=== PATIENT | female | born 1950 | race Caucasian/White ===

== ENCOUNTER 2016-04-08 15:31 | Inpatient (IN) | payer OTHER ==
[2016-04-08] MEDS ORDERED: SODIUM CHLORIDE 0.9% 500 ML INFUS.BAG IV ONE (15:57)
--- NOTE | 2016-04-08 16:00 | PDOC ---
History of Present Illness - History of Present Illness Initial Comments: 04/08/16 15:58 65-year-old female assisted patient with a history of Shawanda's disease and dementia, altered mental status, generalized muscle weakness, Parkinson's disease, Cris D, psychosis, who is a resident of [facility] She was sent to the emergency Department with rapid breathing, fever, and reports of foul-smelling urine No history is available from the patient History is obtained from EMS and the assisted transfer sheet There are no old inpatient records for review No further history or review of systems is available at this time <Summer Marino - Last Filed: 04/08/16 17:01> <Christine Gatica - Last Filed: 04/08/16 18:35> - General Chief Complaint: Shortness of Breath Stated Complaint: RESPIRATORY DISTRESS Time Seen by Provider: 04/08/16 15:47 Past History - Past Medical History Dementia: Yes (altered mental status) GI Disorders: Yes (gerd) Psychiatric Problems: Yes (anxiety,major depression, bipolar) Other medical history: huntintons's disease,muscle weakness, parkinsonism, - Psycho/Social/Smoking Cessation Hx Anxiety: No Suicidal Ideation: No Smoking History: Never smoked Have you smoked in the past 12 months: No Information on smoking cessation initiated: No Hx Alcohol Use: No Drug/Substance Use Hx: No Substance Use Type: None <Summer Marino - Last Filed: 04/08/16 17:01> <Christine Gatica - Last Filed: 04/08/16 18:35> - Past Medical History Allergies/Adverse Reactions: Allergies Allergy/AdvReac Type Severity Reaction Status Date / Time No Known Allergies Allergy Verified 04/08/16 15:46 Home Medications: Ambulatory Orders Amantadine HCl [Symmetrel -] 100 mg PO DAILY 04/08/16 Docusate Sodium 300 mg PO HS 04/08/16 Hypromellose 0.5% Opth Soln [Artificial Tears] 1 drop OU DAILY 04/08/16 Mirtazapine 7.5 mg PO HS 04/08/16 Mirtazapine 15 mg PO HS 04/08/16 Sennosides [Senna] 2 tab PO HS 04/08/16 Review of Systems - Review of Systems Able to Perform ROS?: No <Summer Marino - Last Filed: 04/08/16 17:01> *Physical Exam - Vital Signs Last Vital Signs Temp Pulse Resp BP Pulse Ox 101.3 F H 118 H 24 107/75 93 L 04/08/16 15:49 04/08/16 15:38 04/08/16 15:38 04/08/16 15:38 04/08/16 15:38 - Physical Exam Comments: 04/08/16 16:00 Physical exam Last Vital Signs Temp Pulse Resp BP Pulse Ox 101.3 F H 118 H 24 107/75 93 L 04/08/16 15:49 04/08/16 15:38 04/08/16 15:38 04/08/16 15:38 04/08/16 15:38 GENERAL: The patient is diaphoretic and hyperventilating HEAD: Normal with no signs of trauma. EYES: Conjunctiva normal ENT: Mucous membranes dry NECK: Normal range of motion, supple LUNGS: Breath sounds equal, clear to auscultation bilaterally. No wheezes, and no crackles. HEART: Tachycardic Regular rate and rhythm, normal S1 and S2 without murmur, rub or gallop. ABDOMEN: Soft, nontender, normoactive bowel sounds. No guarding, no rebound. No masses appreciated. EXTREMITIES: No edema NEUROLOGICAL: Chronic neurologic deficits as noted SKIN: Warm, Dry, <Summer Marino - Last Filed: 04/08/16 17:01> - Vital Signs Last Vital Signs Temp Pulse Resp BP Pulse Ox 101.3 F H 92 H 24 107/75 97 04/08/16 15:49 04/08/16 16:53 04/08/16 15:38 04/08/16 16:47 04/08/16 16:59 <Christine Gatica - Last Filed: 04/08/16 18:35> ED Treatment Course - LABORATORY CBC & Chemistry Diagram: 04/08/16 16:48 04/08/16 16:48 - RADIOLOGY Radiology Studies Ordered: Category Date Time Status CHEST X-RAY PORTABLE* [RAD] Stat Radiology 04/08/16 15:55 Ordered <Summer Marino - Last Filed: 04/08/16 17:01> - LABORATORY CBC & Chemistry Diagram: 04/08/16 16:48 04/08/16 16:48 - ADDITIONAL ORDERS Additional order review: Laboratory Results 04/08/16 04/08/16 04/08/16 16:48 16:48 16:48 Anticoagulation Therapy Puncture Site ABG pH ABG pCO2 at Pt Temp ABG pO2 at Pt Temp ABG HCO3 ABG O2 Sat (Measured) ABG O2 Content ABG Base Excess Jus Test Carboxyhemoglobin Methemoglobin O2 Delivery Device Oxygen Flow Rate Vent Mode Vent Rate Mechanical Rate PEEP Pressure Support Vent Sodium 181 H* Potassium 3.2 L Chloride 146 H Carbon Dioxide 24 Anion Gap 11 BUN 61 H Creatinine 1.4 H Creat Clearance w eGFR 37.51 Random Glucose 143 H Lactic Acid 3.409 H* Calcium 8.2 L Magnesium 3.7 H Total Bilirubin 0.9 AST 29 ALT 45 Alkaline Phosphatase 92 Creatine Kinase 672 H Troponin I 0.07 H B-Natriuretic Peptide 283.90 H Total Protein 5.7 L Albumin 2.5 L Lipase 162 Urine Color Yellow Urine Appearance Clear Urine pH 5.0 Ur Specific [place] 1.027 Urine Protein 1+ H Urine Glucose (UA) Negative Urine Ketones Trace H Urine Blood 1+ H Urine Nitrite Positive Urine Bilirubin Negative Urine Urobilinogen 2.0 e.u/dl H Ur Leukocyte Esterase Negative Urine RBC 25 Urine WBC 2 Ur Epithelial Cells Rare Urine Bacteria Many Urine Mucus Moderate 04/08/16 16:20 Anticoagulation Therapy Y Puncture Site Right radial ABG pH 7.47 H ABG pCO2 at Pt Temp 27.3 L ABG pO2 at Pt Temp 45.4 L* ABG HCO3 19.8 L ABG O2 Sat (Measured) 81.6 L ABG O2 Content 18.5 ABG Base Excess -1.8 Jus Test Positive Carboxyhemoglobin 1.1 Methemoglobin 1.0 O2 Delivery Device Room air Oxygen Flow Rate 21% Vent Mode Y Vent Rate Y Mechanical Rate Y PEEP 0.0 Pressure Support Vent Y Sodium Potassium Chloride Carbon Dioxide Anion Gap BUN Creatinine Creat Clearance w eGFR Random Glucose Lactic Acid Calcium Magnesium Total Bilirubin AST ALT Alkaline Phosphatase Creatine Kinase Troponin I B-Natriuretic Peptide Total Protein Albumin Lipase Urine Color Urine Appearance Urine pH Ur Specific [place] Urine Protein Urine Glucose (UA) Urine Ketones Urine Blood Urine Nitrite Urine Bilirubin Urine Urobilinogen Ur Leukocyte Esterase Urine RBC Urine WBC Ur Epithelial Cells Urine Bacteria Urine Mucus 04/08/16 16:48 RBC 5.53 H MCV 88.5 MCHC 31.4 L RDW 15.8 H MPV 12.1 H - Medications Given in the ED: ED Medications Discontinued Medications Generic Name Dose Route Start Last Admin Trade Name Negin PRN Reason Stop Dose Admin Acetaminophen 1,000 mg 04/08/16 16:01 04/08/16 16:20 Ofirmev Injection - IVPB 04/08/16 16:02 1,000 mg ONCE ONE Administration Vancomycin HCl 1,000 mg/ 250 mls @ 250 mls/hr 04/08/16 16:27 04/08/16 17:15 Dextrose IVPB 04/08/16 17:26 250 mls/hr ONCE ONE Administration Protocol Piperacillin Sod/Tazobactam 50 mls @ 100 mls/hr 04/08/16 16:28 04/08/16 16:30 Sod 3.375 gm/ Dextrose IVPB 04/08/16 16:57 100 mls/hr ONCE ONE Administration Protocol Levofloxacin 100 mls @ 100 mls/hr 04/08/16 16:28 04/08/16 16:59 Levaquin 500 Mg Premixed Ivpb - IVPB 04/08/16 17:27 100 mls/hr ONCE ONE Administration Sodium Chloride 1,000 ml 04/08/16 15:57 04/08/16 16:47 Normal Saline - IV 04/08/16 15:58 1,000 ml ONCE ONE Administration <Christine Gatica - Last Filed: 04/08/16 18:35> Medical Decision Making - Medical Decision Making 04/08/16 16:02 65-year-old female with most likely sepsis, and secondary hyperventilation for lactic acidosis 04/08/16 16:03 EKG Sinus tachycardia 116, left axis deviation -50 Normal AV and IV conduction time Prolonged QT with a QTC of [address]-T waves Poor baseline 04/08/16 16:29 Stat ABG PH 7.47/pCO2 27/pO2 45/sat 81%/RA pt started on 100% nonrebreather Will start coverage with vancomycin/Levaquin/Zosyn 04/08/16 17:01 SIGN OUT Case discussed in detail with oncoming Emergency Physician including history, physical exam and ancillary studies. Oncoming Emergency Physician has assumed care for the patient and will complete the evaluation and treatment. Transfer of care to Dr. Gatica at 5 PM awaiting all studies <Summer Marino - Last Filed: 04/08/16 17:01> - Critical Care Time Total Critical Care Time (minutes): 60 Critical Care Statement: The care of this patient involved high complexity decision making to prevent further life threatening deterioration of the patient 's condition and/or to evalute & treat vital organ system(s) failure or risk of failure. <Christine Gatica - Last Filed: 04/08/16 18:35> *DC/Admit/Observation/Transfer <Summer Marino - Last Filed: 04/08/16 17:01> - Discharge Dispostion Admit: Yes <Christine Gatica - Last Filed: 04/08/16 18:35> Diagnosis at time of Disposition: [place] disease, Hypernatremia Sepsis Qualifiers: Sepsis type: sepsis due to unspecified organism Qualified Code(s): A41.9 - Sepsis, unspecified organism UTI (urinary tract infection) Qualifiers: Urinary tract infection type: site unspecified Hematuria presence: without hematuria Qualified Code(s): N39.0 - Urinary tract infection, site not specified - Referrals
[2016-04-08] MEDS ORDERED: ACETAMINOPHEN INJECTION 100 ML IVPB ONE (16:01)
[2016-04-08] MEDS ORDERED: ACETAMINOPHEN 1000 MG/100 ML VIAL (NON FORMULARY) IVPB ONE (16:01)
[2016-04-08 16:24] LABS: ARTERIAL BLOOD GAS PO2 45.4 mmHg (80-100); ARTERIAL BLOOD GAS pH 7.47 (7.35-7.45)
[2016-04-08 16:25] LABS: ALLENS TEST POSITIVE; ART PUNCT SITE RIGHT RADIAL; ARTERIAL BLD GAS O2 SATURATION 81.6 % (90-98.9); ARTERIAL BLOOD GAS BASE EXCESS -1.8 meq/l (-2-2); ARTERIAL BLOOD GAS HCO3 19.8 meq/L (22-26); LPM/O2% 21%; PT. ON O2? NO; TYPE OF O2 ROOM AIR
[2016-04-08] MEDS ORDERED: VANCOMYCIN 1,000 MG in DEXTROSE 5%-WATER - 250 ML IVPB ONE (16:27)
[2016-04-08] MEDS ORDERED: PIPERACILLIN/TAZOB 3.375 GM 3.375 GM in DEXTROSE 5%-WATER - 50 ML IVPB ONE (16:28)
[2016-04-08] MEDS ORDERED: LEVOFLOXACIN 500 MG IVPB 100 ML IVPB ONE ×2 (16:28→16:50)
[2016-04-08] MEDS ORDERED: VANCOMYCIN 1 GRAM (PRE-DOCKED) 250 ML IVPB ONE (16:49)
[2016-04-08] MEDS ORDERED: PIPERACILLIN/TAZOB 3.375 GM 50 ML IVPB ONE (16:50)
[2016-04-08 16:57] LABS: MCH 27.8 pg (25.7-33.7); MCHC 31.4 g/dl (32.0-36.0); MEAN CELL VOLUME 88.5 fl (80-96); MEAN PLT VOLUME 12.1 fl (7.5-11.1); PLATELET COUNT 204 K/MM3 (134-434); RDW 15.8 % (11.6-15.6); WHITE BLOOD COUNT 15.5 K/mm3 (4.0-10.0)
[2016-04-08 17:07] LABS: URINE APPEARANCE CLEAR; URINE BILIRUBIN NEGATIVE (NEGATIVE); URINE COLOR YELLOW; URINE GLUCOSE (UA) NEGATIVE (NEGATIVE); URINE KETONE TRACE (NEGATIVE); URINE LEUK ESTERASE NEGATIVE (NEGATIVE); URINE NITRITE POSITIVE (NEGATIVE); URINE UROBILINOGEN 2.0 E.U/dl E.U./dl (0.2-1.0)
[2016-04-08 17:13] LABS: URINE BLOOD 1+ (NEGATIVE); URINE PROTEIN 1+ (NEGATIVE)
[2016-04-08 17:22] LABS: URINE BACTERIA MANY /hpf (NONE SEEN); URINE MUCUS MODERATE; URINE RBC 25 /hpf (0-3); URINE WBC 2 /hpf (3-5)
[2016-04-08 17:29] LABS: ALBUMIN 2.5 g/dl (3.4-5.0); BILIRUBIN,TOTAL 0.9 mg/dL (0.2-1.0); CALCIUM 8.2 mg/dL (8.5-10.1); CREATININE 1.4 mg/dL (0.55-1.02); MAGNESIUM 3.7 mg/dL (1.8-2.4); TOT PROT 5.7 g/dl (6.4-8.2)
[2016-04-08 17:32] LABS: TROPONIN I 0.07 ng/ml (0.00-0.05)
--- NOTE | 2016-04-08 17:48 | PDOC ---
*Physical Exam - Vital Signs Last Vital Signs Temp Pulse Resp BP Pulse Ox 101.3 F H 92 H 24 107/75 97 04/08/16 15:49 04/08/16 16:53 04/08/16 15:38 04/08/16 16:47 04/08/16 16:59 ED Treatment Course - LABORATORY CBC & Chemistry Diagram: 04/08/16 16:48 04/08/16 16:48 - ADDITIONAL ORDERS Additional order review: Laboratory Results 04/08/16 04/08/16 04/08/16 16:48 16:48 16:48 Anticoagulation Therapy Puncture Site ABG pH ABG pCO2 at Pt Temp ABG pO2 at Pt Temp ABG HCO3 ABG O2 Sat (Measured) ABG O2 Content ABG Base Excess Jus Test Carboxyhemoglobin Methemoglobin O2 Delivery Device Oxygen Flow Rate Vent Mode Vent Rate Mechanical Rate PEEP Pressure Support Vent Sodium 181 H* Potassium 3.2 L Chloride 146 H Carbon Dioxide 24 Anion Gap 11 BUN 61 H Creatinine 1.4 H Creat Clearance w eGFR 37.51 Random Glucose 143 H Lactic Acid 3.409 H* Calcium 8.2 L Magnesium 3.7 H Total Bilirubin 0.9 AST 29 ALT 45 Alkaline Phosphatase 92 Creatine Kinase 672 H Troponin I 0.07 H B-Natriuretic Peptide 283.90 H Total Protein 5.7 L Albumin 2.5 L Lipase 162 Urine Color Yellow Urine Appearance Clear Urine pH 5.0 Ur Specific [place] 1.027 Urine Protein 1+ H Urine Glucose (UA) Negative Urine Ketones Trace H Urine Blood 1+ H Urine Nitrite Positive Urine Bilirubin Negative Urine Urobilinogen 2.0 e.u/dl H Ur Leukocyte Esterase Negative Urine RBC 25 Urine WBC 2 Ur Epithelial Cells Rare Urine Bacteria Many Urine Mucus Moderate 04/08/16 16:20 Anticoagulation Therapy Y Puncture Site Right radial ABG pH 7.47 H ABG pCO2 at Pt Temp 27.3 L ABG pO2 at Pt Temp 45.4 L* ABG HCO3 19.8 L ABG O2 Sat (Measured) 81.6 L ABG O2 Content 18.5 ABG Base Excess -1.8 Jus Test Positive Carboxyhemoglobin 1.1 Methemoglobin 1.0 O2 Delivery Device Room air Oxygen Flow Rate 21% Vent Mode Y Vent Rate Y Mechanical Rate Y PEEP 0.0 Pressure Support Vent Y Sodium Potassium Chloride Carbon Dioxide Anion Gap BUN Creatinine Creat Clearance w eGFR Random Glucose Lactic Acid Calcium Magnesium Total Bilirubin AST ALT Alkaline Phosphatase Creatine Kinase Troponin I B-Natriuretic Peptide Total Protein Albumin Lipase Urine Color Urine Appearance Urine pH Ur Specific [place] Urine Protein Urine Glucose (UA) Urine Ketones Urine Blood Urine Nitrite Urine Bilirubin Urine Urobilinogen Ur Leukocyte Esterase Urine RBC Urine WBC Ur Epithelial Cells Urine Bacteria Urine Mucus 04/08/16 16:48 RBC 5.53 H MCV 88.5 MCHC 31.4 L RDW 15.8 H MPV 12.1 H - Medications Given in the ED: ED Medications Discontinued Medications Generic Name Dose Route Start Last Admin Trade Name Freq PRN Reason Stop Dose Admin Acetaminophen 1,000 mg 04/08/16 16:01 04/08/16 16:20 Ofirmev Injection - IVPB 04/08/16 16:02 1,000 mg ONCE ONE Administration Vancomycin HCl 1,000 mg/ 250 mls @ 250 mls/hr 04/08/16 16:27 04/08/16 17:15 Dextrose IVPB 04/08/16 17:26 250 mls/hr ONCE ONE Administration Protocol Piperacillin Sod/Tazobactam 50 mls @ 100 mls/hr 04/08/16 16:28 04/08/16 16:30 Sod 3.375 gm/ Dextrose IVPB 04/08/16 16:57 100 mls/hr ONCE ONE Administration Protocol Levofloxacin 100 mls @ 100 mls/hr 04/08/16 16:28 04/08/16 16:59 Levaquin 500 Mg Premixed Ivpb - IVPB 04/08/16 17:27 100 mls/hr ONCE ONE Administration Sodium Chloride 1,000 ml 04/08/16 15:57 04/08/16 16:47 Normal Saline - IV 04/08/16 15:58 1,000 ml ONCE ONE Administration Medical Decision Making - Critical Care Time Total Critical Care Time (minutes): 60 Critical Care Statement: The care of this patient involved high complexity decision making to prevent further life threatening deterioration of the patient 's condition and/or to evalute & treat vital organ system(s) failure or risk of failure. 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 Dr Coates agreed w ICU admission *DC/Admit/Observation/Transfer Diagnosis at time of Disposition: [place] disease, Hypernatremia, Hyperglycemia, Hypokalemia Sepsis Qualifiers: Sepsis type: sepsis due to unspecified organism Qualified Code(s): A41.9 - Sepsis, unspecified organism UTI (urinary tract infection) Qualifiers: Urinary tract infection type: site unspecified Hematuria presence: without hematuria Qualified Code(s): N39.0 - Urinary tract infection, site not specified - Discharge Dispostion Admit: Yes Decision to Admit order Date/Time: Decision to Admit Order Category Date Time Status Decision to Admit to Hospital Routine Admission 04/08/16 17:45 Active - Referrals - Patient Instructions - Post Discharge Activity
[2016-04-08] MEDS ORDERED: ACETAMINOPHEN 325 MG TABLET (FP) PO PRN (22:42)
[2016-04-08] MEDS ORDERED: SODIUM CHLORIDE 1,000 ML IV STA (22:43)
[2016-04-08] MEDS ORDERED: SODIUM CHLORIDE 1,000 ML IV SCH (22:45)
[2016-04-08 22:59] LABS: TROPONIN I 0.11 ng/ml (0.00-0.05)
[2016-04-08] MEDS ORDERED: D5-1/3NS+20 MEQ KCL - 1,000 ML IV SCH (23:00)
--- NOTE | 2016-04-08 23:32 | CONSULT ---
Consult Consult Specialty:: Pulm/CC - History of Present Illness History of Present Illness: Pt is a 65yr old woman with PMHx of advanced [place]'s and Parkinson's disease (Parkinsonian from [place]'s?). She presents to the ER from [facility] with CC tachypnea, fever and foul smelling urine. In the ER found to have wbc 15.5, hemoconcentrated, BUN/Cr 61/1.4, Sodium 181, Potassium 3.2 and CK 672. Chest xray consistent with left side hcap. Pt admitted to the ICU for further management. Upon assessment pt is awake and alert, minimally responsive to verbal stimuli 111/67, HR 80s sinus on tele, intermittent desaturation resolved with venti mask. - History Source History Provided By: Medical Record Limitations to Obtaining History: Clinical Condition - Alcohol/Substance Use Hx Alcohol Use: No - Smoking History Smoking history: Never smoked Have you smoked in the past 12 months: No Home Medications - Allergies Allergies/Adverse Reactions: Allergies Allergy/AdvReac Type Severity Reaction Status Date / Time No Known Allergies Allergy Verified 04/08/16 15:46 - Home Medications Home Medications: Ambulatory Orders Amantadine HCl [Symmetrel -] 100 mg PO DAILY 04/08/16 Docusate Sodium 300 mg PO HS 04/08/16 Hypromellose 0.5% Opth Soln [Artificial Tears] 1 drop OU DAILY 04/08/16 Mirtazapine 7.5 mg PO HS 04/08/16 Mirtazapine 15 mg PO HS 04/08/16 Sennosides [Senna] 2 tab PO HS 04/08/16 Family Disease History - Family Disease History Family History: Unable to Obtain Review of Systems Unable to obtain ROS, reason: CORBY Physical Exam Vital Signs: Vital Signs Period Temp Pulse Resp BP Sys/Rae Pulse Ox Last 24 Hr 98 F-101.3 F 85-118 18-30 100-127/67-77 93-100 Intake & Output 04/05/16 04/06/16 04/07/16 04/08/16 23:59 23:59 23:59 23:59 Intake Total 1000 Output Total 50 Balance 950 Weight 99 lb Constitutional: Yes: Mild Distress, Poor Hygeine, Thin Eyes: Yes: PERRL HENT: Yes: Thrush, Other (white exudate throughout oral cavity, brown growths) Neck: Yes: WNL Cardiovascular: Yes: S1, S2 Respiratory: Yes: Diminished (pt unable to deep breath upon request), On Venti- Mask, Tachypnea (low to mid 20s). No: Rhonchi, Wheezes Gastrointestinal: Yes: Normal Bowel Sounds ...Rectal Exam: Yes: Deferred Renal/: Yes: Hewitt Present (yellow output) Extremities: Yes: Cool, Other (contraction) Edema: Yes Edema: LLE: Trace, RLE: Trace Peripheral Pulses WNL: Yes (+2 bilateral pedal pulses) Integumentary: Yes: Tenting Psychiatric: Yes: Alert. No: Oriented Labs: Abnormal Lab Results 04/08/16 04/08/16 04/08/16 16:20 16:48 16:48 WBC 15.5 H RBC 5.53 H Hgb 15.4 H Hct 49.0 H MCHC 31.4 L RDW 15.8 H MPV 12.1 H ABG pH 7.47 H ABG pCO2 at Pt Temp 27.3 L ABG pO2 at Pt Temp 45.4 L* ABG HCO3 19.8 L ABG O2 Sat (Measured) 81.6 L Sodium Potassium Chloride BUN Creatinine Random Glucose Lactic Acid Calcium Magnesium Creatine Kinase Troponin I B-Natriuretic Peptide Total Protein Albumin Urine Protein 1+ H Urine Ketones Trace H Urine Blood 1+ H Urine Urobilinogen 2.0 e.u/dl H 04/08/16 04/08/16 04/08/16 16:48 16:48 20:03 WBC RBC Hgb Hct MCHC RDW MPV ABG pH ABG pCO2 at Pt Temp ABG pO2 at Pt Temp ABG HCO3 ABG O2 Sat (Measured) Sodium 181 H* Potassium 3.2 L Chloride 146 H BUN 61 H Creatinine 1.4 H Random Glucose 143 H Lactic Acid 3.409 H* 3.128 H* Calcium 8.2 L Magnesium 3.7 H Creatine Kinase 672 H Troponin I 0.07 H B-Natriuretic Peptide 283.90 H Total Protein 5.7 L Albumin 2.5 L Urine Protein Urine Ketones Urine Blood Urine Urobilinogen 04/08/16 22:20 WBC RBC Hgb Hct MCHC RDW MPV ABG pH ABG pCO2 at Pt Temp ABG pO2 at Pt Temp ABG HCO3 ABG O2 Sat (Measured) Sodium Potassium Chloride BUN Creatinine Random Glucose Lactic Acid Calcium Magnesium Creatine Kinase 991 H D Troponin I 0.11 H B-Natriuretic Peptide Total Protein Albumin Urine Protein Urine Ketones Urine Blood Urine Urobilinogen Assessment/Plan Pt is a 65yr old woman with PMHx of advanced [place]'s and Parkinson's disease (Parkinsonian from [place]'s?). Now in the ICU for sepsis secondary to uti/hcap, severe hypernatremia, rhabdo in setting of hypovolemia. Pulm: -O2 support prn, hypoxic in ER, now sating 100% on venti mask -f/u repeat abg -Chest xray in a.m ID: Sepsis secondary to UTI and HCAP -f/u cultures -Consult -Antibiotics per ID -Trend lactic acid Renal: Severe hypernatremia, likely chronic, rhabdo likely from hypovolemia -Consult -IVF -Goal ~10mEq reduction per 24hrs -I/Os -bmp q3-4 -Replete electrolytes prn Neuro: Advanced [place] and Parkinson's (Parkinsonian symptoms secondary to Shawanda's?) -Consult -Continue home meds -Pain management Cardio -f/u enzymes ENT: pt with growth in bottom of oral cavity and what appears to be significant decay/possible infection. -Consider dental consult Nutrition -NGT -Enteral feeds GOC: -Discussed with pt's brother (ID confirmed) who states he wishes all interventions at this time Prophylactic -PPI -DVT -Aspiration precautions
[2016-04-08 23:42] VITALS: BMI 19.3
[2016-04-08] MEDS: SODIUM CHLORIDE 0.9%/KCL 1,000 ML IV SCH (23:45)
[2016-04-08] MEDS ORDERED: KCL 10 MEQ IVPB 100 ML IVPB SCH (23:45)
[2016-04-09 00:38] LABS: ARTERIAL BLD GAS O2 SATURATION 94.8 % (90-98.9); ARTERIAL BLOOD GAS BASE EXCESS -3.3 meq/l (-2-2); ARTERIAL BLOOD GAS PO2 78.5 mmHg (80-100); ARTERIAL BLOOD GAS pH 7.41 (7.35-7.45)
[2016-04-09 00:39] LABS: ALLENS TEST POSITIVE; ART PUNCT SITE RIGHT RADIAL; LPM/O2% 50%; PT. ON O2? YES; TYPE OF O2 VENTI MASK
[2016-04-09] MEDS ORDERED: SODIUM CHLORIDE 1,000 ML IV STA (01:00)
[2016-04-09] MEDS ORDERED: PIPERACILLIN/TAZOB 3.375 GM 50 ML IVPB ONE (02:00)
[2016-04-09 06:06] LABS: MCH 28.1 pg (25.7-33.7); MEAN CELL VOLUME 87.8 fl (80-96); MEAN PLT VOLUME 11.5 fl (7.5-11.1); PLATELET COUNT 149 K/MM3 (134-434); RDW 15.3 % (11.6-15.6); WHITE BLOOD COUNT 15.4 K/mm3 (4.0-10.0)
[2016-04-09] MEDS: NYSTATIN 500,000 UNITS/5 ML SUSPENSION PO SCH ×3 (06:15→17:27)
[2016-04-09 06:20] LABS: INR 1.88 (0.82-1.09); PROTHROMBIN TIME (PATIENT) 20.9 SEC (9.98-11.88)
[2016-04-09 06:42] LABS: ALBUMIN 2.2 g/dl (3.4-5.0); BILIRUBIN,TOTAL 0.8 mg/dL (0.2-1.0); CALCIUM 7.9 mg/dL (8.5-10.1); MAGNESIUM 3.1 mg/dL (1.8-2.4); PHOSPHOROUS 1.7 mg/dL (2.5-4.9); TROPONIN I 0.09 ng/ml (0.00-0.05)
[2016-04-09] MEDS ORDERED: SODIUM CHLORIDE 500 ML IV STA (06:52)
[2016-04-09] MEDS: KCL 10 MEQ IVPB 100 ML IVPB SCH ×2 (07:17→10:39)
--- NOTE | 2016-04-09 10:01 | PN ---
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
[2016-04-09 10:31] LABS: CALCIUM 7.9 mg/dL (8.5-10.1); CREATININE 0.9 mg/dL (0.55-1.02)
[2016-04-09] MEDS: PIPERACILLIN/TAZOB 3.375 GM 50 ML IVPB SCH ×2 (10:39→18:52)
[2016-04-09] MEDS: AMANTADINE HCL 100 MG TABLET PO SCH (11:11)
[2016-04-09] MEDS: HEPARIN NA (PORCINE) 5,000 UNITS/ML 1ML VIAL SQ SCH ×2 (11:22→23:26)
[2016-04-09] MEDS: D5-1/2NS+40 MEQ KCL - 1,000 ML IV SCH (11:26)
--- NOTE | 2016-04-09 11:53 | EKG ---
Test Reason : Blood Pressure : / mmHG Vent. Rate : 087 BPM Atrial Rate : 087 BPM P-R Int : 112 ms QRS Dur : 096 ms QT Int : 350 ms P-R-T Axes : 055 -36 135 degrees QTc Int : 421 ms NORMAL SINUS RHYTHM LEFT AXIS DEVIATION NONSPECIFIC T WAVE ABNORMALITY ABNORMAL ECG WHEN COMPARED WITH ECG OF 08-APR-2016 15:49, COMPARED TO EKG NO SIGNIFICANT CHANGE IS FOUND Confirmed by SAMANTHA PEÑALOZA, LUIS ([id number]) on 04/09/2016 11:52:53 AM Referred By: VICKI HITCHCOCK Confirmed By:LUIS SINGH MD
--- NOTE | 2016-04-09 12:24 | EKG ---
Test Reason : Blood Pressure : / mmHG Vent. Rate : 116 BPM Atrial Rate : 116 BPM P-R Int : 126 ms QRS Dur : 098 ms QT Int : 366 ms P-R-T Axes : 072 -50 071 degrees QTc Int : 508 ms POOR DATA QUALITY, INTERPRETATION MAY BE ADVERSELY AFFECTED SINUS TACHYCARDIA LEFT AXIS DEVIATION NONSPECIFIC ST AND T WAVE ABNORMALITY ABNORMAL ECG NO PREVIOUS ECGS AVAILABLE Confirmed by LUIS SINGH MD ([id number]) on 04/09/2016 12:24:32 PM Referred By: Confirmed By:LUIS SINGH MD
--- NOTE | 2016-04-09 12:25 | CONS ---
INFECTIOUS DISEASE CONSULTATION DATE OF CONSULTATION: 04/09/2016 REQUESTED BY: Susan Ortega MD HISTORY OF PRESENT ILLNESS: This is a 65-year-old woman with L[place]'s disease who lives at the senior living whose chief complaint on arrival at the emergency room was respiratory distress and shortness of breath. She is unable to give any history. She at the time of transfer had a temperature of 99.1, and an O2 saturation of 87%. She was brought to the emergency room where she was noted to have a tachycardia with a heart rate of 118. She was noted to have an elevated white count of 15,000 with a lactic acid of 3.4 and a sodium of 181. BUN and creatinine were 61 and 1.4. Chest x-ray revealed a left-sided infiltrate and had cultures drawn, was given vancomycin, Levaquin, Zosyn and fluids and admitted to the ICU. I am asked to see her for further recommendations. She is resting comfortably and unable to give any history. PAST MEDICAL HISTORY: Per the senior living records, her past medical history is notable for: 1. [place]'s disease. 2. Dementia. 3. Anxiety disorder. 4. Muscle weakness. 5. Bipolar disorder. 6. GERD without esophagitis. 7. Secondary Parkinson's. 8. Major depression. MEDICATIONS: She has received both her pneumococcal and influenza vaccines. Her medications at the senior living: 1. Mirtazapine. 2. Amantadine. 3. Colace. 4. Ensure Plus. It appears she was recently on IV fluids for dehydration at the senior living. PAST MEDICAL HISTORY: Her past medical history is as stated. She is nonverbal, and it is unclear whether this is her baseline. ALLERGIES: She has no known drug allergies. FAMILY HISTORY: Unable to obtain family history. REVIEW OF SYSTEMS: Unable to obtain review of systems. SOCIAL HISTORY: She resides at the senior living. PHYSICAL EXAM: Vital signs: Temperature was 101.3 in the emergency room, currently 97.8. Pulse of 93. Blood pressure is 92/59. Respiratory rate is 24. She is 99 pounds. HEENT exam: She is normocephalic. Her eyes are anicteric. Musculoskeletal: She has increased muscle tone throughout. Heart: Her heart is regular rate and rhythm. Lungs: Her lungs have diminished breath sounds at the bases, left greater than right. Abdomen: Her abdomen is firm, nontender. Skin: She has no skin breakdown. : Her Hewitt is draining clear urine. Extremities: Extremities are without edema. LABS: Labs are notable for a white count of 15.4, hemoglobin 13.1. Platelets are 149. INR is 1.8. Her BUN and creatinine this morning are 50 and 1 with a sodium of 178 and a potassium of 2.7. LFTs are normal with a CPK of 876. Urinalysis has 2 white cells. Cultures are pending. Influenza screen is negative, and chest x-ray reveals a left-sided infiltrate. SUMMARY: 1. In summary, this is a 65-year-old woman with left lower lobe infiltrate, consistent with age to have possible aspiration given her mental status. 2. Dehydration with electrolyte abnormalities as well as mild rhabdomyolysis. She is receiving IV fluids. 3. [place]'s disease with dementia. RECOMMENDATIONS: I would continue her on Zosyn. Follow up her cultures. She has received over-night vancomycin Levaquin and Zosyn with. Would send urinary antigens. PROGNOSIS: Her overall prognosis is guarded. JOE BRADFORD M.D. [id number]
[2016-04-09] MEDS: MUPIROCIN 2% TOPICAL OINTMENT FOR DECOLONIZATION NS SCH ×2 (12:47→23:26)
[2016-04-09] MEDS: ARTIFICIAL TEARS (POLYVINYL ALCOHOL 1.4%) OPTH DROPS OU SCH (12:48)
[2016-04-09 12:58] LABS: METAMYELOCYTE 1 % (0-2)
--- NOTE | 2016-04-09 14:41 | PN ---
Teaching Attending Note Name of Resident: John Vazquez ATTENDING PHYSICIAN STATEMENT I saw and evaluated the patient. I reviewed the resident's note and discussed the case with the resident. I agree with the resident's findings and plan as documented. SUBJECTIVE: Patient seen and examined in the ICU. Remains poorly responsive on FM O2. Hemodynamics have been relatively stable. Still with severe electrolyte derangement. Intake & Output 04/06/16 04/07/16 04/08/16 04/09/16 23:59 23:59 23:59 23:59 Intake Total 1000 2475 Output Total 50 200 Balance 950 2275 Weight 99 lb 99 lb Last Vital Signs Temp Pulse Resp BP Pulse Ox 97.8 F 73 19 96/62 95 04/09/16 14:04/09/16 14:04/09/16 14:04/09/16 14:04/09/16 10:00 Active Medications Acetaminophen (Tylenol -) 650 mg PO Q4H PRN PRN Reason: FEVER OR PAIN Amantadine HCl (Symmetrel -) 100 mg PO DAILY [facility] Last Admin: 04/09/16 11:11 Dose: Not Given Artificial Tears (Artificial Tears) 1 drop OU DAILY [facility] Last Admin: 04/09/16 12:48 Dose: 1 drop Chlorhexidine Gluconate (Hibiclens For Decolonization -) 1 applic TP HS MATHEW Docusate Sodium (Colace -) 300 mg PO HS MATHEW Heparin Sodium (Porcine) (Heparin -) 5,000 unit SQ BID [facility] Last Admin: 04/09/16 11:22 Dose: 5,000 unit Piperacillin Sod/Tazobactam Sod (Zosyn 3.375gm Ivpb (Pre-Docked)) 50 mls @ 100 mls/hr IVPB Q8H-IV MATHEW PRN Reason: Protocol Last Admin: 04/09/16 10:39 Dose: 100 mls/hr Potassium Chloride/Sodium Chloride (Ns+20 Meq Kcl -) 1,000 mls @ 125 mls/hr IV ASDIR [facility] Last Admin: 04/08/16 23:45 Dose: 125 mls/hr Dextrose/Sodium Chloride (D5-1/2ns+40 Meq Kcl -) 1,000 mls @ 100 mls/hr IV ASDIR [facility] Last Admin: 04/09/16 11:26 Dose: 100 mls/hr Mirtazapine (Remeron -) 15 mg PO [facility] Mupirocin (Bactroban Ointment (For Decolonization) -) 1 applic NS BID [facility] Stop: 04/14/16 09:59 Last Admin: 04/09/16 12:47 Dose: 1 applic Nystatin (Nystatin Oral Suspension -) 500,000 units PO Q6HPO [facility] Last Admin: 04/09/16 12:48 Dose: Not Given Senna (Senna -) 2 tab PO [facility] Constitutional: Yes: Poorly responsive Eyes: Yes: PERRL HENT: Yes: (?) Thrush Neck: Yes: WNL Cardiovascular: Yes: S1, S2 Respiratory: Yes: Diminished at the bases, few basilar rhonchi Gastrointestinal: Yes: Normal Bowel Sounds ...Rectal Exam: Yes: Deferred Renal/: Yes: [place] Present (yellow output) Extremities: Yes: Cool, Other (contraction) Edema: Yes Edema: LLE: Trace, RLE: Trace Peripheral Pulses WNL: Yes (+2 bilateral pedal pulses) Integumentary: Yes: Tenting Psychiatric: Yes: Alert. No: Oriented Labs: Laboratory Results - last 24 hr 04/08/16 04/08/16 04/08/16 16:20 16:48 16:48 WBC 15.5 H RBC 5.53 H Hgb 15.4 H Hct 49.0 H MCV 88.5 MCHC 31.4 L RDW 15.8 H Plt Count 204 MPV 12.1 H Neutrophils % Lymphocytes % Monocytes % Band Neutrophils Metamyelocytes Differential Comment INR Anticoagulation Therapy Y Puncture Site Right radial ABG pH 7.47 H ABG pCO2 at Pt Temp 27.3 L ABG pO2 at Pt Temp 45.4 L* ABG HCO3 19.8 L ABG O2 Sat (Measured) 81.6 L ABG O2 Content 18.5 ABG Base Excess -1.8 Jus Test Positive Carboxyhemoglobin 1.1 Methemoglobin 1.0 O2 Delivery Device Room air Oxygen Flow Rate 21% Vent Mode Y Vent Rate Y Mechanical Rate Y PEEP 0.0 Pressure Support Vent Y Sodium Potassium Chloride Carbon Dioxide Anion Gap BUN Creatinine Creat Clearance w eGFR Random Glucose Lactic Acid Calcium Phosphorus Magnesium Total Bilirubin AST ALT Alkaline Phosphatase Creatine Kinase CK-MB (CK-2) Troponin I B-Natriuretic Peptide Total Protein Albumin Lipase Urine Color Yellow Urine Appearance Clear Urine pH 5.0 Ur Specific [place] 1.027 Urine Protein 1+ H Urine Glucose (UA) Negative Urine Ketones Trace H Urine Blood 1+ H Urine Nitrite Positive Urine Bilirubin Negative Urine Urobilinogen 2.0 e.u/dl H Ur Leukocyte Esterase Negative Urine RBC 25 Urine WBC 2 Ur Epithelial Cells Rare Urine Bacteria Many Urine Mucus Moderate 04/08/16 04/08/16 04/08/16 16:48 16:48 20:03 WBC RBC Hgb Hct MCV MCHC RDW Plt Count MPV Neutrophils % Lymphocytes % Monocytes % Band Neutrophils Metamyelocytes Differential Comment INR Anticoagulation Therapy Puncture Site ABG pH ABG pCO2 at Pt Temp ABG pO2 at Pt Temp ABG HCO3 ABG O2 Sat (Measured) ABG O2 Content ABG Base Excess Jus Test Carboxyhemoglobin Methemoglobin O2 Delivery Device Oxygen Flow Rate Vent Mode Vent Rate Mechanical Rate PEEP Pressure Support Vent Sodium 181 H* Potassium 3.2 L Chloride 146 H Carbon Dioxide 24 Anion Gap 11 BUN 61 H Creatinine 1.4 H Creat Clearance w eGFR 37.51 Random Glucose 143 H Lactic Acid 3.409 H* 3.128 H* Calcium 8.2 L Phosphorus Magnesium 3.7 H Total Bilirubin 0.9 AST 29 ALT 45 Alkaline Phosphatase 92 Creatine Kinase 672 H CK-MB (CK-2) 2.894 Troponin I 0.07 H B-Natriuretic Peptide 283.90 H Total Protein 5.7 L Albumin 2.5 L Lipase 162 Urine Color Urine Appearance Urine pH Ur Specific [place] Urine Protein Urine Glucose (UA) Urine Ketones Urine Blood Urine Nitrite Urine Bilirubin Urine Urobilinogen Ur Leukocyte Esterase Urine RBC Urine WBC Ur Epithelial Cells Urine Bacteria Urine Mucus 04/08/16 04/09/16 04/09/16 22:20 00:35 05:00 WBC 15.4 H RBC 4.67 Hgb 13.1 D Hct 41.0 D MCV 87.8 MCHC 32.0 RDW 15.3 Plt Count 149 D MPV 11.5 H Neutrophils % 75.0 Lymphocytes % 4.0 L Monocytes % 3.0 L Band Neutrophils 17.0 H Metamyelocytes 1 Differential Comment Manual diff done INR Anticoagulation Therapy Y Puncture Site Right radial ABG pH 7.41 ABG pCO2 at Pt Temp 32.5 L ABG pO2 at Pt Temp 78.5 L D ABG HCO3 20.0 L ABG O2 Sat (Measured) 94.8 ABG O2 Content 18.4 ABG Base Excess -3.3 L Jus Test Positive Carboxyhemoglobin Methemoglobin O2 Delivery Device Venti mask Oxygen Flow Rate 50% Vent Mode Y Vent Rate Y Mechanical Rate Y PEEP Pressure Support Vent Y Sodium Potassium Chloride Carbon Dioxide Anion Gap BUN Creatinine Creat Clearance w eGFR Random Glucose Lactic Acid Calcium Phosphorus Magnesium Total Bilirubin AST ALT Alkaline Phosphatase Creatine Kinase 991 H D CK-MB (CK-2) Troponin I 0.11 H B-Natriuretic Peptide Total Protein Albumin Lipase Urine Color Urine Appearance Urine pH Ur Specific [place] Urine Protein Urine Glucose (UA) Urine Ketones Urine Blood Urine Nitrite Urine Bilirubin Urine Urobilinogen Ur Leukocyte Esterase Urine RBC Urine WBC Ur Epithelial Cells Urine Bacteria Urine Mucus 04/09/16 04/09/16 04/09/16 05:00 05:00 05:00 WBC RBC Hgb Hct MCV MCHC RDW Plt Count MPV Neutrophils % Lymphocytes % Monocytes % Band Neutrophils Metamyelocytes Differential Comment INR 1.88 H Anticoagulation Therapy Puncture Site ABG pH ABG pCO2 at Pt Temp ABG pO2 at Pt Temp ABG HCO3 ABG O2 Sat (Measured) ABG O2 Content ABG Base Excess Jus Test Carboxyhemoglobin Methemoglobin O2 Delivery Device Oxygen Flow Rate Vent Mode Vent Rate Mechanical Rate PEEP Pressure Support Vent Sodium 178 H* Potassium 2.7 L* Chloride 148 H Carbon Dioxide 23 Anion Gap 7 L BUN 50 H Creatinine 1.0 D Creat Clearance w eGFR 55.30 Random Glucose 120 H Lactic Acid 1.461 Calcium 7.9 L Phosphorus 1.7 L Magnesium 3.1 H Total Bilirubin 0.8 AST 34 ALT 38 Alkaline Phosphatase 82 Creatine Kinase 876 H CK-MB (CK-2) Troponin I 0.09 H B-Natriuretic Peptide Total Protein 5.0 L Albumin 2.2 L Lipase Urine Color Urine Appearance Urine pH Ur Specific [place] Urine Protein Urine Glucose (UA) Urine Ketones Urine Blood Urine Nitrite Urine Bilirubin Urine Urobilinogen Ur Leukocyte Esterase Urine RBC Urine WBC Ur Epithelial Cells Urine Bacteria Urine Mucus 04/09/16 09:55 WBC RBC Hgb Hct MCV MCHC RDW Plt Count MPV Neutrophils % Lymphocytes % Monocytes % Band Neutrophils Metamyelocytes Differential Comment INR Anticoagulation Therapy Puncture Site ABG pH ABG pCO2 at Pt Temp ABG pO2 at Pt Temp ABG HCO3 ABG O2 Sat (Measured) ABG O2 Content ABG Base Excess Jus Test Carboxyhemoglobin Methemoglobin O2 Delivery Device Oxygen Flow Rate Vent Mode Vent Rate Mechanical Rate PEEP Pressure Support Vent Sodium 174 H* Potassium 2.8 L* Chloride 144 H Carbon Dioxide 23 Anion Gap 7 L BUN 46 H Creatinine 0.9 Creat Clearance w eGFR Random Glucose 103 Lactic Acid Calcium 7.9 L Phosphorus Magnesium Total Bilirubin AST ALT Alkaline Phosphatase Creatine Kinase CK-MB (CK-2) Troponin I B-Natriuretic Peptide Total Protein Albumin Lipase Urine Color Urine Appearance Urine pH Ur Specific [place] Urine Protein Urine Glucose (UA) Urine Ketones Urine Blood Urine Nitrite Urine Bilirubin Urine Urobilinogen Ur Leukocyte Esterase Urine RBC Urine WBC Ur Epithelial Cells Urine Bacteria Urine Mucus Assessment/Plan Sepsis likely due to UTI R/O PNA Advanced [place]'s and Parkinson's disease Severe hypernatremia Rhabdomyolysis PLAN: ABX per ID Strict I&O Serrano-culture O2 to maintain saturation Follow AM CXR Aspiration precautions Need to get more info about Neuro function and baseline ICU monitoring Dr Morgan CCTime 35"
--- NOTE | 2016-04-09 15:24 | PN ---
Physical Exam: SUBJECTIVE: Patient seen and examined at bedside in ICU. She's non-verbal at baseline. Per nurse, no acute event since admission to the ICU. OBJECTIVE: Vital Signs Period Temp Pulse Resp BP Sys/Rae Pulse Ox Last 24 Hr 97.7 F-98.2 F 63-103 18-30 86-123/52-86 95-100 GENERAL: The non-arousable, non-verbal at baseline, on face tent 50% LUNGS: Poor air entry with b/o rhonchi HEART: Regular rate and rhythm, S1, S2 without murmur, rub or gallop. ABDOMEN: Soft, nontender, nondistended, normoactive bowel sounds, no guarding, no rebound, no hepatosplenomegaly, no masses. EXTREMITIES: trace edema. ABG Results ABG pH 7.41 (7.35-7.45) 04/09/16 00:35 ABG pCO2 at Pt Temp 32.5 mmHg (35-45) L 04/09/16 00:35 ABG pO2 at Pt Temp 78.5 mmHg (80-100) L D 04/09/16 00:35 ABG HCO3 20.0 meq/L (22-26) L 04/09/16 00:35 ABG O2 Sat (Measured) 94.8 % (90-98.9) 04/09/16 00:35 ABG O2 Content 18.4 % vol (15-22) 04/09/16 00:35 ABG Base Excess -3.3 meq/l (-2-2) L 04/09/16 00:35 CBCD WBC 15.4 K/mm3 (4.0-10.0) H 04/09/16 05:00 RBC 4.67 M/mm3 (3.60-5.2) 04/09/16 05:00 Hgb 13.1 GM/dL (10.7-15.3) D 04/09/16 05:00 Hct 41.0 % (32.4-45.2) D 04/09/16 05:00 MCV 87.8 fl (80-96) 04/09/16 05:00 MCHC 32.0 g/dl (32.0-36.0) 04/09/16 05:00 RDW 15.3 % (11.6-15.6) 04/09/16 05:00 Plt Count 149 K/MM3 (134-434) D 04/09/16 05:00 MPV 11.5 fl (7.5-11.1) H 04/09/16 05:00 CMP Sodium 174 mmol/L (136-145) H* 04/09/16 09:55 Potassium 2.8 mmol/L (3.5-5.1) L* 04/09/16 09:55 Chloride 144 mmol/L (98-107) H 04/09/16 09:55 Carbon Dioxide 23 mmol/L (21-32) 04/09/16 09:55 Anion Gap 7 (8-16) L 04/09/16 09:55 BUN 46 mg/dL (7-18) H 04/09/16 09:55 Creatinine 0.9 mg/dL (0.55-1.02) 04/09/16 09:55 Creat Clearance w eGFR 55.30 (>60) 04/09/16 05:00 Calcium 7.9 mg/dL (8.5-10.1) L 04/09/16 09:55 Total Bilirubin 0.8 mg/dL (0.2-1.0) 04/09/16 05:00 AST 34 U/L (15-37) 04/09/16 05:00 ALT 38 U/L (12-78) 04/09/16 05:00 Alkaline Phosphatase 82 U/L (45-117) 04/09/16 05:00 Total Protein 5.0 g/dl (6.4-8.2) L 04/09/16 05:00 Albumin 2.2 g/dl (3.4-5.0) L 04/09/16 05:00 Intake & Output 04/06/16 04/07/16 04/08/16 04/09/16 23:59 23:59 23:59 23:59 Intake Total 1000 2475 Output Total 50 200 Balance 950 2275 Weight 44.906 kg 44.906 kg Active Medications Generic Name Dose Route Start Last Admin Trade Name Freq PRN Reason Stop Dose Admin Acetaminophen 650 mg 04/08/16 22:42 Tylenol - PO Q4H PRN FEVER OR PAIN Amantadine HCl 100 mg 04/09/16 10:00 04/09/16 11:11 Symmetrel - PO Not Given DAILY MATHEW Artificial Tears 1 drop 04/09/16 10:00 04/09/16 12:48 Artificial Tears OU 1 drop DAILY MATHEW Administration Chlorhexidine Gluconate 1 applic 04/09/16 22:00 Hibiclens For Decolonization - TP HS [facility] Docusate Sodium 300 mg 04/09/16 22:00 Colace - PO HS [facility] Heparin Sodium (Porcine) 5,000 unit 04/09/16 10:00 04/09/16 11:22 Heparin - SQ 5,000 unit BID MATHEW Administration Piperacillin Sod/Tazobactam Sod 50 mls @ 100 mls/hr 04/09/16 10:00 04/09/16 10: 39 Zosyn 3.375gm Ivpb (Pre-Docked) IVPB 100 mls/hr Q8H-IV MATHEW Administration Protocol Potassium Chloride/Sodium Chloride 1,000 mls @ 125 mls/hr 04/08/16 23:45 23:45 Ns+20 Meq Kcl - IV 125 mls/hr ASDIR [facility] Administration Dextrose/Sodium Chloride 1,000 mls @ 100 mls/hr 04/09/16 11:15 04/09/16 11:26 D5-1/2ns+40 Meq Kcl - IV 100 mls/hr ASDIR [facility]W Administration Mirtazapine 15 mg 04/09/16 22:00 Remeron - PO [facility] Mupirocin 1 applic 04/09/16 10:00 04/09/16 12:47 Bactroban Ointment (For Decolonization) - NS 04/14/16 09:59 1 applic BID MATHEW Administration Nystatin 500,000 units 04/09/16 06:00 04/09/16 12:48 Nystatin Oral Suspension - PO Not Given Q6HPO MATHEW Senna 2 tab 04/09/16 22:00 Senna - PO [facility] Microbiology 04/09/16 10:50 Urine For Antigen Detection Legionella Antigen - Final 04/09/16 10:50 Urine For Antigen Detection Streptococcus pneumoniae Antigen (M - Final 04/09/16 00:50 Nasopharyngeal Swab Respiratory Virus Panel - Preliminary 04/09/16 00:50 Nasopharyngeal Swab Influenza Types A,B Antigen (SELMA) - Final 04/09/16 00:50 Nasopharyngeal Swab - Final Urine Test Results Urine Color Yellow 04/08/16 16:48 Urine Appearance Clear 04/08/16 16:48 Urine pH 5.0 (5.0-8.0) 04/08/16 16:48 Ur Specific [place] 1.027 (1.001-1.035) 04/08/16 16:48 Urine Protein 1+ (NEGATIVE) H 04/08/16 16:48 Urine Glucose (UA) Negative (NEGATIVE) 04/08/16 16:48 Urine Ketones Trace (NEGATIVE) H 04/08/16 16:48 Urine Blood 1+ (NEGATIVE) H 04/08/16 16:48 Urine Nitrite Positive (NEGATIVE) 04/08/16 16:48 Urine Bilirubin Negative (NEGATIVE) 04/08/16 16:48 Ur Leukocyte Esterase Negative (NEGATIVE) 04/08/16 16:48 Urine RBC 25 /hpf (0-3) 04/08/16 16:48 Urine WBC 2 /hpf (3-5) 04/08/16 16:48 Ur Epithelial Cells Rare /hpf (FEW) 04/08/16 16:48 Urine Bacteria Many /hpf (NONE SEEN) 04/08/16 16:48 Urine Mucus Moderate 04/08/16 16:48 Imaging CXR 04/09: LLL infiltrate ASSESSMENT/PLAN: 65 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 According to family on the phone, she's lethargic and non-verbal at baseline with recent decrease in appetite and therefore oral intake. ID: Sepsis 2/2 pneumonia vs. UTI - Persistent leukocytosis and one spike fever of 101.3 F overnight - UA -ve - LLL infiltrate and pleural effusion on CXR - Blood and urine cultures pending - Lactic acid normalized - Continue empiric vancomycin and zosyn Renal: Severe hypernatremia, hypokalemia and rhabdomyolysis - D5W + 1/2NS + 40 Meq KCl @ 100ml/hr - f/u BMP this PM - Neuro check Q2H - watch for signs of cerebral edema and herniation - CT head if still remains unarousable Pulm: Infiltrate on CXR - On face tent 50% 15L - Daily CXR and ABG Neuro: Dementia, Shawanda's and Parkinson's - Lethargic and non-verbal at baseline - Cont. current medication Cardiac: NSTEMI 2/2 Demand ischemia - Trend troponins FEN - On fluid as stated above - Cont. to monitor BMP - Sodium controlled diet - Prophylaxis - DVT: heparin SQ - GI: not indicated yet Disposition - Continues to require inpatient ICU care Code status - Full code Visit type - Emergency Visit Emergency Visit: No - New Patient This patient is new to me today: Yes Date on this admission: 04/09/16 - Critical Care Critical Care patient: Yes Total Critical Care Time (in minutes): 45 Critical Care Statement: The care of this patient involved high complexity decision making to prevent further life threatening deterioration of the patient 's condition and/or to evalute & treat vital organ system(s) failure or risk of failure.
[2016-04-09] MEDS ORDERED: VANCOMYCIN 1 GRAM (PRE-DOCKED) 1,000 MG/250 ML BAG IVPB SCH (16:00)
[2016-04-09 16:42] LABS: CALCIUM 7.7 mg/dL (8.5-10.1)
--- NOTE | 2016-04-09 16:45 | CONSULT ---
Consult Consult Specialty:: Nephrology Reason for Consultation:: hypernatremia and JERRY - History of Present Illness Chief Complaint: sent in [place] for [place]yp[place] History of Present Illness: Pt is a 65 year old female with pmhx of [place]'s disease, dementia and psychosis who was sent in from the [place] for tachypnea and possible UTI. She is unable to give history. She was found to have multiple electrolyte abnormalities so I was called to evaluate her. She was hypernatremic and hypokalemic. Pt was also found to be in rabdo. She was tachycardic and had an elevated wbc on presentations. She was admitted to ICU for further workup. - History Source History Provided By: Family Member - Past Medical History [employer]: Yes: Dementia, Parkinson's, Other (h[place]) Gastrointestinal: Yes: GERD ...: No - Alcohol/Substance Use Hx Alcohol Use: No - Smoking History Smoking history: Never smoked Have you smoked in the past 12 months: No Home Medications - Allergies Allergies/Adverse Reactions: Allergies Allergy/AdvReac Type Severity Reaction Status Date / Time No Known Allergies Allergy Verified 04/08/16 15:46 - Home Medications Home Medications: Ambulatory Orders Amantadine HCl [Symmetrel -] 100 mg PO DAILY 04/08/16 Docusate Sodium 300 mg PO HS 04/08/16 Hypromellose 0.5% Opth Soln [Artificial Tears] 1 drop OU DAILY 04/08/16 Mirtazapine 7.5 mg PO HS 04/08/16 Mirtazapine 15 mg PO HS 04/08/16 Sennosides [Senna] 2 tab PO HS 04/08/16 Family Disease History - Family Disease History Family History: Unable to Obtain Review of Systems Unable to obtain ROS, reason: pt lethargic Physical Exam Vital Signs: Vital Signs Temperature 97.8 F 04/09/16 14:26 Pulse Rate 73 04/09/16 14:26 Respiratory Rate 19 04/09/16 14:26 Blood Pressure 96/62 04/09/16 14:26 O2 Sat by Pulse Oximetry (%) 95 04/09/16 10:00 Constitutional: Yes: Calm Eyes: Yes: Conjunctiva Clear Neck: Yes: Supple Cardiovascular: Yes: Tachycardia, S1, S2 Respiratory: Yes: On Venti-Mask Gastrointestinal: Yes: Soft Renal/: Yes: Incontinence Musculoskeletal: Yes: Muscle Weakness Edema: No Neurological: Yes: Lethargy Labs: CBC, BMP 04/09/16 05:00 Laboratory Tests 04/08/16 04/08/16 04/08/16 16:48 16:48 16:48 WBC 15.5 H Hgb 15.4 H ABG pH ABG pCO2 at Pt Temp ABG pO2 at Pt Temp ABG HCO3 Sodium 181 H* Potassium 3.2 L Chloride Carbon Dioxide Anion Gap BUN 61 H Creatinine 1.4 H Lactic Acid 3.409 H* Calcium Phosphorus Creatine Kinase 04/08/16 04/08/16 04/09/16 20:03 22:20 00:35 WBC Hgb ABG pH 7.41 ABG pCO2 at Pt Temp 32.5 L ABG pO2 at Pt Temp 78.5 L D ABG HCO3 20.0 L Sodium Potassium Chloride Carbon Dioxide Anion Gap BUN Creatinine Lactic Acid 3.128 H* Calcium Phosphorus Creatine Kinase 991 H D 04/09/16 04/09/16 04/09/16 05:00 05:00 05:00 WBC 15.4 H Hgb 13.1 D ABG pH ABG pCO2 at Pt Temp ABG pO2 at Pt Temp ABG HCO3 Sodium 178 H* Potassium 2.7 L* Chloride Carbon Dioxide Anion Gap 7 L BUN 50 H Creatinine Lactic Acid 1.461 Calcium 7.9 L Phosphorus 1.7 L Creatine Kinase 876 H 04/09/16 09:55 WBC Hgb ABG pH ABG pCO2 at Pt Temp ABG pO2 at Pt Temp ABG HCO3 Sodium 174 H* Potassium 2.8 L* Chloride 144 H Carbon Dioxide 23 Anion Gap 7 L BUN 46 H Creatinine Lactic Acid Calcium 7.9 L Phosphorus Creatine Kinase Imaging - Results Chest X-ray: Report Reviewed Problem List - Problems (1) [place]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 (2) Hypernatremia Code(s): E87.0 - HYPEROSMOLALITY AND HYPERNATREMIA (3) Hypokalemia Code(s): E87.6 - HYPOKALEMIA (4) Sepsis Code(s): A41.9 - SEPSIS, UNSPECIFIED ORGANISM Qualifiers: Sepsis type: sepsis due to unspecified organism Qualified Code(s): A41.9 - Sepsis, unspecified organism (5) UTI (urinary tract infection) Code(s): N39.0 - URINARY TRACT INFECTION, SITE NOT SPECIFIED Qualifiers: Urinary tract infection type: site unspecified Hematuria presence: without hematuria Qualified Code(s): N39.0 - Urinary tract infection, site not specified Assessment/Plan Current Medications Generic Name Dose Route Start Last Admin Trade Name Freq PRN Reason Stop Dose Admin Acetaminophen 650 mg 04/08/16 22:42 Tylenol - PO Q4H PRN FEVER OR PAIN Amantadine HCl 100 mg 04/09/16 10:00 04/09/16 11:11 Symmetrel - PO Not Given DAILY MATHEW Artificial Tears 1 drop 04/09/16 10:00 04/09/16 12:48 Artificial Tears OU 1 drop DAILY MATHEW Administration Chlorhexidine Gluconate 1 applic 04/09/16 22:00 Hibiclens For Decolonization - TP HS [facility]W Docusate Sodium 300 mg 04/09/16 22:00 Colace - PO HS [facility]W Heparin Sodium (Porcine) 5,000 unit 04/09/16 10:00 04/09/16 11:22 Heparin - SQ 5,000 unit BID MATHEW Administration Piperacillin Sod/Tazobactam Sod 50 mls @ 100 mls/hr 04/09/16 10:00 04/09/16 10: 39 Zosyn 3.375gm Ivpb (Pre-Docked) IVPB 100 mls/hr Q8H-IV MATHEW Administration Protocol Potassium Chloride/Sodium Chloride 1,000 mls @ 125 mls/hr 04/08/16 23:45 23:45 Ns+20 Meq Kcl - IV 125 mls/hr ASDIR MATHEW Administration Dextrose/Sodium Chloride 1,000 mls @ 100 mls/hr 04/09/16 11:15 04/09/16 11:26 D5-1/2ns+40 Meq Kcl - IV 100 mls/hr ASDIR MATHEW Administration Mirtazapine 15 mg 04/09/16 22:00 Remeron - PO HS MATHEW Mupirocin 1 applic 04/09/16 10:00 04/09/16 12:47 Bactroban Ointment (For Decolonization) - NS 04/14/16 09:59 1 applic BID MATHEW Administration Nystatin 500,000 units 04/09/16 06:00 04/09/16 12:48 Nystatin Oral Suspension - PO Not Given Q6HPO MATHEW Senna 2 tab 04/09/16 22:00 Senna - PO HS MATHEW Vancomycin HCl 1,000 mg 04/09/16 16:00 Vancomycin (Pre-Docked) IVPB 04/10/16 15:59 Q24H [facility] Protocol Impression 1. Hypernatremia 2. hypokalemia 3. [place]'s disease 4. depression 5. sepsis 6. UTI 7. rhabdo 8. malnutrition Plan - pt appears profoundly dehydrated - renal function is stabilizing - cont with hypotonic fluid and potassium supplements - discussed with ICU ream - sodium is improving, goal is 10 meq per 24 hour time period - cont abx - follow cultures - keep pt in ICU - based on the weight listed of 99 pounds, pt has a total free water deficit of about 5.[address] Lord
--- NOTE | 2016-04-09 17:06 | HP ---
Admitting History and Physical - Primary Care Physician PCP: Antonio Caballero - Admission Chief Complaint: UTI. 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: Dementia, Parkinson's, Other (huntingtons) Gastrointestinal: Yes: GERD ...: No - Smoking History Smoking history: Never smoked Have you smoked in the past 12 months: No - Alcohol/Substance Use Hx Alcohol Use: No Home Medications - Allergies Allergies/Adverse Reactions: Allergies Allergy/AdvReac Type Severity Reaction Status Date / Time No Known Allergies Allergy Verified 04/08/16 15:46 - Home Medications Home Medications: Ambulatory Orders Amantadine HCl [Symmetrel -] 100 mg PO DAILY 04/08/16 Docusate Sodium 300 mg PO HS 04/08/16 Hypromellose 0.5% Opth Soln [Artificial Tears] 1 drop OU DAILY 04/08/16 Mirtazapine 7.5 mg PO HS 04/08/16 Mirtazapine 15 mg PO HS 04/08/16 Sennosides [Senna] 2 tab PO HS 04/08/16 Review of Systems Findings/Remarks: UNABLE TO OBTAIN HISTORY Physical Examination Vital Signs: Vital Signs Temperature 97.8 F 04/09/16 14:26 Pulse Rate 73 04/09/16 14:26 Respiratory Rate 19 04/09/16 14:26 Blood Pressure 96/62 04/09/16 14:26 O2 Sat by Pulse Oximetry (%) 95 04/09/16 10:00 Constitutional: Yes: Calm Cardiovascular: Yes: WNL Respiratory: Yes: WNL, Other (O2 MASK) Gastrointestinal: Yes: WNL Edema: No Neurological: Yes: Other (CONTRACTED). No: Oriented Labs: CBC, BMP 04/09/16 05:00 04/09/16 15:30 Imaging - Results Chest X-ray: Report Reviewed Cat Scan: Report Reviewed Problem List - Problems (1) [place]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 (2) Sepsis Code(s): A41.9 - SEPSIS, UNSPECIFIED ORGANISM Qualifiers: Sepsis type: sepsis due to unspecified organism Qualified Code(s): A41.9 - Sepsis, unspecified organism (3) UTI (urinary tract infection) Code(s): N39.0 - URINARY TRACT INFECTION, SITE NOT SPECIFIED Qualifiers: Urinary tract infection type: site unspecified Hematuria presence: without hematuria Qualified Code(s): N39.0 - Urinary tract infection, site not specified (4) Pneumonia Code(s): J18.9 - PNEUMONIA, UNSPECIFIED ORGANISM (5) Hypernatremia Code(s): E87.0 - HYPEROSMOLALITY AND HYPERNATREMIA Assessment/Plan 65-year-old female [facility] patient with a history of Shawanda's disease and dementia, altered mental status, generalized muscle weakness, Parkinson's disease, M.D. D, psychosis, who is a resident of [facility] She was sent to the emergency Department with rapid breathing, fever, and reports of foul-smelling urine No history is available from the patient History is obtained from EMS and the penitentiary transfer sheet There are no old inpatient records for review No further history or review of systems is available at this time (1) Shawanda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 (2) Sepsis Code(s): A41.9 - SEPSIS, UNSPECIFIED ORGANISM Qualifiers: Sepsis type: sepsis due to unspecified organism Qualified Code(s): A41.9 - Sepsis, unspecified organism ID ON CASE IV ABx CXr -> L PNA ST TO R/O ASPIRATION DENTAL SOURCE? 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
[2016-04-09] MEDS ORDERED: POTASSIUM PHOSPHATE 30 MM in DEXTROSE 5%-WATER - 250 ML IVPB ONE (20:26)
[2016-04-09] MEDS ORDERED: SENNOSIDES 8.6MG TABLET (FP) PO SCH (22:00)
[2016-04-09] MEDS ORDERED: DOCUSATE SODIUM 100 MG CAPSULE (FP) PO SCH (22:00)
[2016-04-09] MEDS ORDERED: MIRTAZAPINE 15 MG TABLET (FP) PO SCH (22:00)
[2016-04-09] MEDS ORDERED: CHLORHEXIDINE GLUCONATE 4% CLEANSER FOR DECOLONIZATION TP SCH (22:00)
[2016-04-09] MEDS ORDERED: morphine CARPU-JECT 2 MG/1 ML DISP.SYRIN ONE (23:24)
[2016-04-09] MEDS: SODIUM CHLORIDE 0.9%/KCL 1,000 ML IV SCH (23:45)
[2016-04-10] MEDS: PIPERACILLIN/TAZOB 3.375 GM 50 ML IVPB SCH ×3 (02:00→17:51)
[2016-04-10] MEDS: NYSTATIN 500,000 UNITS/5 ML SUSPENSION PO SCH ×4 (06:06→18:52)
[2016-04-10 06:15] LABS: BASOPHIL 0.1 % (0-2.0); EOSINOPHIL 0.7 % (0-4.5); MCH 27.7 pg (25.7-33.7); MCHC 32.2 g/dl (32.0-36.0); MEAN CELL VOLUME 86.1 fl (80-96); MEAN PLT VOLUME 11.9 fl (7.5-11.1); NEUTROPHILS 92.9 % (42.8-82.8); PLATELET COUNT 136 K/MM3 (134-434); RDW 15.6 % (11.6-15.6); WHITE BLOOD COUNT 15.4 K/mm3 (4.0-10.0)
[2016-04-10 06:28] LABS: INR 1.37 (0.82-1.09); PROTHROMBIN TIME (PATIENT) 15.2 SEC (9.98-11.88)
[2016-04-10 06:42] LABS: ALBUMIN 2.2 g/dl (3.4-5.0); ALK PHOS 79 U/L (45-117); ANION GAP 9 (8-16); BILIRUBIN,TOTAL 0.4 mg/dL (0.2-1.0); CO2 20 mmol/L (21-32); CREATININE 0.8 mg/dL (0.55-1.02); GLUCOSE,RANDOM 130 mg/dL (74-106); MAGNESIUM 3.1 mg/dL (1.8-2.4); PHOSPHOROUS 4.7 mg/dL (2.5-4.9); SGOT/AST 26 U/L (15-37); SGPT/ALT 32 U/L (12-78)
[2016-04-10] MEDS: MUPIROCIN 2% TOPICAL OINTMENT FOR DECOLONIZATION NS SCH ×2 (09:01→22:15)
[2016-04-10] MEDS: HEPARIN NA (PORCINE) 5,000 UNITS/ML 1ML VIAL SQ SCH ×2 (09:01→22:25)
[2016-04-10] MEDS: AMANTADINE HCL 100 MG TABLET PO SCH (09:02)
[2016-04-10] MEDS: ARTIFICIAL TEARS (POLYVINYL ALCOHOL 1.4%) OPTH DROPS OU SCH (09:02)
--- NOTE | 2016-04-10 09:44 | CONSULT ---
Admitting History and Physical - Primary Care Physician PCP: Susan Ortega - Admission History of Present Illness: Per EMR: "65-year-old female assisted patient with a history of Shawanda's disease and dementia, altered mental status, generalized muscle weakness, Parkinson's disease, M.D. D, psychosis, who is a resident of [facility] She was sent to the emergency Department with rapid breathing, fever, and reports of foul-smelling urine No history is available from the patient" "admitted with fever, elevated lactic acid- found to have LLL infiltrate given vancomycin/levaquin/zosyn in ED influenza screen negative LLL infiltrate-HCAP- ?aspiration" Pt was on a chopped diet and thin liquid at [facility]. 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, Parkinson's, Other (huntingtons) Gastrointestinal: Yes: GERD ...: No - Smoking History Smoking history: Never smoked Have you smoked in the past 12 months: No - Alcohol/Substance Use Hx Alcohol Use: No History - Admission Reason For Visit: URINARY TRACT INFECTION,SHAWANDA'S DISEASE,SEPSI - Diagnostics X-ray: Report Reviewed CT Scan: Report Reviewed - General Mental Status: Awake and Alert Attention: Distractible, Moderate Impairment - Hearing Hearing: Normal Hearing Aide: No With Patient: No Speech Evaluation - Communication Primary Language: UKRAINIAN Communication: Yes: Non-Communicable Oral Expression Ability: Yes: Non-Verbal (vocal. No intelligible articulation) - Speech Production Able to Make Needs Known: Yes: Severely Impaired Intelligibility: Yes: Severely Impaired - Speech Characteristics Voice Loudness: Normal Voice Pitch: Yes: Normal Voice Phonatory-based Quality: Yes: Normal Speech Pattern: Impaired Nasal Resonance: Normal Articulation: Yes: Imprecise - Language/Auditory Comprehension Observation: Able to respond to yes/no queries: No (needs further trials) - Language/Verbal Expression Able to Respond to Simple Queries: Yes: Severely Impaired Able to Communicate Wants and Needs: Yes: Severely Impaired Functional Communication Status: Yes: Severely Impaired - Swallow Evaluation/Bedside Assessment Current Nutritional Intake: NPO Oral Secretions: Yes: Dryness Dentition: Yes: Missing Teeth Jaw Position: Open at Rest (Face tent in place.) Laryngeal Movement: Unable to Palpate Labial Seal: Impaired Bilaterally Pocketing: Present Bilaterally Timing of Swallow: Absent Other Findings/Remarks: Readily accepted puree trial, with slight bilabial closure and ability to strip applesauce off of the spoon. Poor oral manipulation, with mostly open mouth posture, no bolus formation or transfer and no swallow reflex elicited. Residue suctioned from oral cavity. Pt was on chopped diet/thin liquid at [facility]. Recommendations - Speech Evaluation, Impression/Plan Impression: Occasional eye contact, generally upward eye gaze. Open mouth posture with inability to form a bolus and transfer. No swallow reflex elicited. Vocalizing but no intelligible speech production at this time. Significant deterioration in function over last 2 months at [facility]. Case discussed with izabela rivera. Pt is a LT resident, used to speak occasionally, in bursts of rapid speech. Cognitively impaired. Signif deterioration over last 2 months, with poor PO intake. Was spitting out puree and liquids. Sucking on p and j sandwiches and swallowing without mastication. Worsening head support. Pt is Mongolian speaking. - Dysphagia Impressions/Plan Swallowing Skills: Impaired Dysphagia Impressions: Severe Impairment, Risk of Aspiration, Ongoing Evaluation *Silent aspiration: cannot be R/O at bedside Recommendations: GI Consult (Consider PEG insertion, hopefully to supplement PO intake if swallowing function improves.), Other (To follow for improved communication and swallowing function.) - Recommendations Diet Consistency: NPO Liquids: NPO
--- NOTE | 2016-04-10 09:58 | PN ---
Progress Note (short form) - Note Progress Note: much more responsive Vital Signs Period Temp Pulse Resp BP Sys/Rae Pulse Ox Last 24 Hr 97 F-98.3 F 63-93 17-23 86-111/52-78 95-99 cor-rrr lungs decreased bs at bases abd soft,nt ext no edema CBC, BMP 04/10/16 05:10 04/10/16 05:10 Microbiology 04/08/16 16:30 Blood - Peripheral Venous Blood Culture - Preliminary NO GROWTH OBTAINED AFTER 24 HOURS, INCUBATION TO CONTINUE FOR 4 DAYS. 04/08/16 16:30 Blood - Peripheral Venous Blood Culture - Preliminary NO GROWTH OBTAINED AFTER 24 HOURS, INCUBATION TO CONTINUE FOR 4 DAYS. 04/09/16 10:50 Urine For Antigen Detection Legionella Antigen - Final 04/09/16 10:50 Urine For Antigen Detection Streptococcus pneumoniae Antigen (M - Final 04/09/16 00:50 Nasopharyngeal Swab Respiratory Virus Panel - Preliminary 04/09/16 00:50 Nasopharyngeal Swab Influenza Types A,B Antigen (SELMA) - Final 04/09/16 00:50 Nasopharyngeal Swab - Final Current Medications Acetaminophen (Tylenol -) 650 mg PO Q4H PRN PRN Reason: FEVER OR PAIN Amantadine HCl (Symmetrel -) 100 mg PO DAILY [facility] Last Admin: 04/10/16 09:02 Dose: Not Given Artificial Tears (Artificial Tears) 1 drop OU DAILY [facility] Last Admin: 04/10/16 09:02 Dose: 1 drop Chlorhexidine Gluconate (Hibiclens For Decolonization -) 1 applic TP HS [facility] Last Admin: 04/09/16 23:26 Dose: 1 applic Docusate Sodium (Colace -) 300 mg PO HS [facility] Last Admin: 04/09/16 23:26 Dose: Not Given Heparin Sodium (Porcine) (Heparin -) 5,000 unit SQ BID [facility]HEW Last Admin: 04/10/16 09:01 Dose: 5,000 unit Piperacillin Sod/Tazobactam Sod (Zosyn 3.375gm Ivpb (Pre-Docked)) 50 mls @ 100 mls/hr IVPB Q8H-IV MATHEW PRN Reason: Protocol Last Admin: 04/10/16 09:01 Dose: 100 mls/hr Potassium Chloride/Sodium Chloride (Ns+20 Meq Kcl -) 1,000 mls @ 125 mls/hr IV ASDIR [facility] Last Admin: 04/09/16 23:45 Dose: 125 mls/hr Dextrose/Sodium Chloride (D5-1/2ns+40 Meq Kcl -) 1,000 mls @ 100 mls/hr IV ASDIR [facility] Last Admin: 04/09/16 11:26 Dose: 100 mls/hr Mirtazapine (Remeron -) 15 mg PO [facility] Last Admin: 04/09/16 23:26 Dose: Not Given Mupirocin (Bactroban Ointment (For Decolonization) -) 1 applic NS BID [facility] Stop: 04/14/16 09:59 Last Admin: 04/10/16 09:01 Dose: 1 applic Nystatin (Nystatin Oral Suspension -) 500,000 units PO Q6HPO [facility] Last Admin: 04/10/16 06:06 Dose: Not Given Senna (Senna -) 2 tab PO [facility] Last Admin: 04/09/16 23:27 Dose: Not Given Vancomycin HCl (Vancomycin (Pre-Docked)) 1,000 mg IVPB Q24H [facility] PRN Reason: Protocol Stop: 04/10/16 15:59 Last Admin: 04/09/16 17:27 Dose: 1,000 mg a/p pneumonia- HCAP- probable aspiration continue vanco/zosyn dehydration/electrolyte abnormalities- continue IVF Huntingtons disease dementia
[2016-04-10] MEDS: D5-1/2NS+40 MEQ KCL - 1,000 ML IV SCH (11:15)
--- NOTE | 2016-04-10 12:38 | CON.CARD ---
Consult Consult Specialty:: Cardiology Referred by:: Dr. Jeffery Reason for Consultation:: Mildly elevated troponins - History of Present Illness History of Present Illness: 65 yo female from [facility] with Haynes's disease, dementia, depression, and psychosis, who was admitted on 04/08/16 with tachypnea, fever, and foul smelling urine. On admission, patient was found to have eleveted WBC 15.5, BUN/Cr 61/1.4, and hypernatremia with Na 181. Patient was found to have CXR findings consistent w, Potassium 3.2 and CK 672. Chest xray demonstrated left lower lobe infilitrate and is currently being treated for HCAP and urinary tract infection. Cardiology was consulted for minimally elevated troponins ( 0.07 -> 0.11 -> 0.09 -> 0.07). 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, Parkinson's, Other (Shawanda's disease) Gastrointestinal: Yes: GERD ...: No Psych: Yes: Anxiety, Depression, Psychosis - Alcohol/Substance Use Hx Alcohol Use: No - Smoking History Smoking history: Never smoked Have you smoked in the past 12 months: No Home Medications - Allergies Allergies/Adverse Reactions: Allergies Allergy/AdvReac Type Severity Reaction Status Date / Time No Known Allergies Allergy Verified 04/08/16 15:46 - Home Medications Home Medications: Ambulatory Orders Amantadine HCl [Symmetrel -] 100 mg PO DAILY 04/08/16 Docusate Sodium 300 mg PO HS 04/08/16 Hypromellose 0.5% Opth Soln [Artificial Tears] 1 drop OU DAILY 04/08/16 Mirtazapine 7.5 mg PO HS 04/08/16 Mirtazapine 15 mg PO HS 04/08/16 Sennosides [Senna] 2 tab PO HS 04/08/16 Family Disease History - Family Disease History Family History: Unable to Obtain Review of Systems Unable to obtain ROS, reason: Due to mental status Vital Signs: Vital Signs Temperature 97.1 F L 04/10/16 12:00 Pulse Rate 85 04/10/16 12:00 Respiratory Rate 19 04/10/16 12:00 Blood Pressure 93/64 04/10/16 12:00 O2 Sat by Pulse Oximetry (%) 98 04/10/16 10:35 - Other Data Labs, Other Data: CBC, BMP 04/10/16 05:10 04/10/16 05:10 INR, PTT INR 1.37 (0.82-1.09) H 04/10/16 05:10 Troponin, BNP 04/09/16 15:30 Troponin I 0.07 H Troponin, BNP 04/09/16 15:30 Troponin I 0.07 H 04/09/16 ECG: Sinus rhythm, rate 87 bpm, LAD, non-specific T wave abnormalities. Imaging - Results Chest X-ray: Report Reviewed (04/10/16: LLL infiltrate), Image Reviewed Assessment/Plan 65 yo female from [facility] with Haynes's disease, dementia, depression, and psychosis. Admitted on 04/08/16 and currently being treated for left lower lobe pneumonia and urinary tract infection, and severe hypernatremia. Cardiology was consulted for minimally elevated troponins (0.07 -> 0.11 -> 0.09 -> 0.07). No ischemic ECG changes and minimally elevated troponins are not clinically significant. Mild trop elevations can be seen in sepsis and mild renal failure ( Cr 1.4 on admission). Per my assessment patient did not have an NM/ACS. However , cannot exclude underlying CAD. However, given patient's mental status and other comorbidities, would avoid invasive/aggressive cardiac evaluation/ intervention. RECS: No further cardiac work-up or intervention is indicated at this time. Management of patient's infectious issues and hypernatremia as per ICU/primary care/ID/nephrology. Will see prn. Call with questions.
--- NOTE | 2016-04-10 13:09 | PN ---
Progress Note, Physician History of Present Illness: Pt seen and examined at bedside. She is awake but not responsive. - Current Medication List Current Medications: Active Medications Acetaminophen (Tylenol -) 650 mg PO Q4H PRN PRN Reason: FEVER OR PAIN Amantadine HCl (Symmetrel -) 100 mg PO DAILY [facility] Last Admin: 04/10/16 09:02 Dose: Not Given Artificial Tears (Artificial Tears) 1 drop OU DAILY [facility] Last Admin: 04/10/16 09:02 Dose: 1 drop Chlorhexidine Gluconate (Hibiclens For Decolonization -) 1 applic TP HS [facility] Last Admin: 04/09/16 23:26 Dose: 1 applic Docusate Sodium (Colace -) 300 mg PO HS [facility] Last Admin: 04/09/16 23:26 Dose: Not Given Heparin Sodium (Porcine) (Heparin -) 5,000 unit SQ BID [facility] Last Admin: 04/10/16 09:01 Dose: 5,000 unit Piperacillin Sod/Tazobactam Sod (Zosyn 3.375gm Ivpb (Pre-Docked)) 50 mls @ 100 mls/hr IVPB Q8H-IV MATHEW PRN Reason: Protocol Last Admin: 04/10/16 09:01 Dose: 100 mls/hr Potassium Chloride/Sodium Chloride (Ns+20 Meq Kcl -) 1,000 mls @ 125 mls/hr IV ASDIR [facility] Last Admin: 04/09/16 23:45 Dose: 125 mls/hr Dextrose/Sodium Chloride (D5-1/2ns+40 Meq Kcl -) 1,000 mls @ 100 mls/hr IV ASDIR [facility] Last Admin: 04/10/16 11:15 Dose: 100 mls/hr Mirtazapine (Remeron -) 15 mg PO [facility] Last Admin: 04/09/16 23:26 Dose: Not Given Mupirocin (Bactroban Ointment (For Decolonization) -) 1 applic NS BID [facility] Stop: 04/14/16 09:59 Last Admin: 04/10/16 09:01 Dose: 1 applic Nystatin (Nystatin Oral Suspension -) 500,000 units PO Q6HPO [facility] Last Admin: 04/10/16 12:45 Dose: Not Given Senna (Senna -) 2 tab PO [facility] Last Admin: 04/09/16 23:27 Dose: Not Given Vancomycin HCl (Vancomycin (Pre-Docked)) 1,000 mg IVPB Q24H [facility] PRN Reason: Protocol Stop: 04/10/16 15:59 Last Admin: 04/09/16 17:27 Dose: 1,000 mg - Objective Vital Signs: Vital Signs Temperature 97.1 F L 04/10/16 12:00 Pulse Rate 85 04/10/16 12:00 Respiratory Rate 19 04/10/16 12:00 Blood Pressure 93/64 04/10/16 12:00 O2 Sat by Pulse Oximetry (%) 98 04/10/16 10:35 Constitutional: Yes: Calm Eyes: Yes: Conjunctiva Clear Cardiovascular: Yes: S1, S2 Respiratory: Yes: On Venti-Mask Gastrointestinal: Yes: Soft Genitourinary: Yes: Hewitt Present Musculoskeletal: Yes: Muscle Weakness Edema: No Neurological: Yes: Pre-Existing Deficit Labs: CBC, BMP 04/10/16 05:10 04/10/16 05:10 INR, PTT INR 1.37 (0.82-1.09) H 04/10/16 05:10 - ....Imaging Chest X-ray: Report Reviewed Problem List - Problems (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 (2) Hypernatremia Code(s): E87.0 - HYPEROSMOLALITY AND HYPERNATREMIA (3) Hypokalemia Code(s): E87.6 - HYPOKALEMIA (4) Sepsis Code(s): A41.9 - SEPSIS, UNSPECIFIED ORGANISM Qualifiers: Sepsis type: sepsis due to unspecified organism Qualified Code(s): A41.9 - Sepsis, unspecified organism (5) UTI (urinary tract infection) Code(s): N39.0 - URINARY TRACT INFECTION, SITE NOT SPECIFIED Qualifiers: Urinary tract infection type: site unspecified Hematuria presence: without hematuria Qualified Code(s): N39.0 - Urinary tract infection, site not specified Assessment/Plan Current Medications Generic Name Dose Route Start Last Admin Trade Name Freq PRN Reason Stop Dose Admin Acetaminophen 650 mg 04/08/16 22:42 Tylenol - PO Q4H PRN FEVER OR PAIN Amantadine HCl 100 mg 04/09/16 10:00 04/10/16 09:02 Symmetrel - PO Not Given DAILY MATHEW Artificial Tears 1 drop 04/09/16 10:00 04/10/16 09:02 Artificial Tears OU 1 drop DAILY MATHEW Administration Chlorhexidine Gluconate 1 applic 04/09/16 22:00 04/09/16 23:26 Hibiclens For Decolonization - TP 1 applic HS MATHEW Administration Docusate Sodium 300 mg 04/09/16 22:00 04/09/16 23:26 Colace - PO Not Given HS [facility] Heparin Sodium (Porcine) 5,000 unit 04/09/16 10:00 04/10/16 09:01 Heparin - SQ 5,000 unit BID MATHEW Administration Piperacillin Sod/Tazobactam Sod 50 mls @ 100 mls/hr 04/09/16 10:00 04/10/16 09: 01 Zosyn 3.375gm Ivpb (Pre-Docked) IVPB 100 mls/hr Q8H-IV MATHEW Administration Protocol Potassium Chloride/Sodium Chloride 1,000 mls @ 125 mls/hr 04/08/16 23:45 23:45 Ns+20 Meq Kcl - IV 125 mls/hr ASDIR MATHEW Administration Dextrose/Sodium Chloride 1,000 mls @ 100 mls/hr 04/09/16 11:15 04/10/16 11:15 D5-1/2ns+40 Meq Kcl - IV 100 mls/hr ASDIR [facility]W Administration Mirtazapine 15 mg 04/09/16 22:00 04/09/16 23:26 Remeron - PO Not Given HS [facility] Mupirocin 1 applic 04/09/16 10:00 04/10/16 09:01 Bactroban Ointment (For Decolonization) - NS 04/14/16 09:59 1 applic BID MATHEW Administration Nystatin 500,000 units 04/09/16 06:00 04/10/16 12:45 Nystatin Oral Suspension - PO Not Given Q6HPO MATHEW Senna 2 tab 04/09/16 22:00 04/09/16 23:27 Senna - PO Not Given HS [facility] Vancomycin HCl 1,000 mg 04/09/16 16:00 04/09/16 17:27 Vancomycin (Pre-Docked) IVPB 04/10/16 15:59 1,000 mg Q24H MATHEW Administration Protocol Impression 1. Hypernatremia 2. hypokalemia 3. Benzie's disease 4. depression 5. sepsis 6. UTI 7. rhabdo 8. malnutrition Plan - change fluids to d5w with potassium - consider placing NG tube and starting feeds - pt appears profoundly dehydrated - renal function is stabilizing - discussed with ICU ream - sodium is improving, goal is 10 meq per 24 hour time period - cont abx - follow cultures - keep pt in ICU Dr Lord
[2016-04-10] MEDS ORDERED: DEXTROSE 5%-WATER - 1,000 ML with POTASSIUM CHLORIDE 40 MEQ IVPB SCH (14:00)
--- NOTE | 2016-04-10 14:59 | PN ---
Progress Note (short form) - Note Progress Note: Patient seen and examined in the ICU. Slightly more awake today. Tracks with her eyes intermittently. Not able to answer any questions. Hemodynamics have been stable. Severe electrolyte derangement slowly improving. Intake & Output 04/07/16 04/08/16 04/09/16 04/10/16 23:59 23:59 23:59 23:59 Intake Total 1000 4375 1550 Output Total 50 300 1000 Balance 950 4075 550 Weight 99 lb 99 lb 112 lb Last Vital Signs Temp Pulse Resp BP Pulse Ox 97.3 F L 85 21 94/62 98 04/10/16 14:00 04/10/16 14:00 04/10/16 14:00 04/10/16 14:00 04/10/16 10:35 Active Medications Acetaminophen (Tylenol -) 650 mg PO Q4H PRN PRN Reason: FEVER OR PAIN Amantadine HCl (Symmetrel -) 100 mg PO DAILY [facility] Last Admin: 04/10/16 09:02 Dose: Not Given Artificial Tears (Artificial Tears) 1 drop OU DAILY [facility] Last Admin: 04/10/16 09:02 Dose: 1 drop Chlorhexidine Gluconate (Hibiclens For Decolonization -) 1 applic TP HS [facility] Last Admin: 04/09/16 23:26 Dose: 1 applic Docusate Sodium (Colace -) 300 mg PO HS [facility] Last Admin: 04/09/16 23:26 Dose: Not Given Heparin Sodium (Porcine) (Heparin -) 5,000 unit SQ BID [facility] Last Admin: 04/10/16 09:01 Dose: 5,000 unit Piperacillin Sod/Tazobactam Sod (Zosyn 3.375gm Ivpb (Pre-Docked)) 50 mls @ 100 mls/hr IVPB Q8H-IV [facility]HEW PRN Reason: Protocol Last Admin: 04/10/16 09:01 Dose: 100 mls/hr Potassium Chloride 40 meq/ (Dextrose) 1,020 mls @ 100 mls/hr IVPB Q10H [facility] Mirtazapine (Remeron -) 15 mg PO HS [facility] Last Admin: 04/09/16 23:26 Dose: Not Given Mupirocin (Bactroban Ointment (For Decolonization) -) 1 applic NS BID [facility] Stop: 04/14/16 09:59 Last Admin: 04/10/16 09:01 Dose: 1 applic Nystatin (Nystatin Oral Suspension -) 500,000 units PO Q6HPO [facility] Last Admin: 04/10/16 12:45 Dose: Not Given Senna (Senna -) 2 tab PO HS [facility] Last Admin: 04/09/16 23:27 Dose: Not Given Vancomycin HCl (Vancomycin (Pre-Docked)) 1,000 mg IVPB Q24H [facility] PRN Reason: Protocol Stop: 04/10/16 15:59 Last Admin: 04/09/16 17:27 Dose: 1,000 mg Constitutional: Yes: Awake, NAD Eyes: Yes: PERRL HENT: Yes: (?) Thrush Neck: Yes: WNL Cardiovascular: Yes: S1, S2 Respiratory: Yes: Diminished at the bases, few basilar rhonchi Gastrointestinal: Yes: Normal Bowel Sounds ...Rectal Exam: Yes: Deferred Renal/: Yes: Hewitt Present (yellow output) Extremities: Yes: Cool, Other (contraction) Edema: Yes Edema: LLE: Trace, RLE: Trace Peripheral Pulses WNL: Yes (+2 bilateral pedal pulses) Integumentary: Yes: Tenting Psychiatric: Yes: Alert. No: Oriented Labs: Laboratory Results - last 24 hr 04/09/16 04/09/16 04/10/16 15:30 15:30 05:10 WBC 15.4 H RBC 4.36 Hgb 12.1 Hct 37.5 MCV 86.1 MCHC 32.2 RDW 15.6 Plt Count 136 MPV 11.9 H Neutrophils % 92.9 H D Lymphocytes % 4.2 L Monocytes % 2.1 L Eosinophils % 0.7 Basophils % 0.1 INR Sodium 172 H* Potassium 3.4 L D Chloride 140 H Carbon Dioxide 21 Anion Gap 11 BUN 42 H Creatinine 1.0 Creat Clearance w eGFR Random Glucose 191 H D Lactic Acid Calcium 7.7 L Phosphorus Magnesium Total Bilirubin AST ALT Alkaline Phosphatase Troponin I 0.07 H Total Protein Albumin 04/10/16 04/10/16 04/10/16 05:10 05:10 05:10 WBC RBC Hgb Hct MCV MCHC RDW Plt Count MPV Neutrophils % Lymphocytes % Monocytes % Eosinophils % Basophils % INR 1.37 H Sodium 170 H* Potassium 4.1 D Chloride 141 H Carbon Dioxide 20 L Anion Gap 9 BUN 32 H D Creatinine 0.8 Creat Clearance w eGFR > 60 Random Glucose 130 H D Lactic Acid 1.379 Calcium 8.0 L Phosphorus 4.7 D Magnesium 3.1 H Total Bilirubin 0.4 D AST 26 D ALT 32 Alkaline Phosphatase 79 Troponin I Total Protein 5.0 L Albumin 2.2 L Assessment/Plan Sepsis likely due to UTI Suspected Aspiration PNA Advanced [place]'s and Parkinson's disease Severe hypernatremia Rhabdomyolysis PLAN: ABX per ID Strict I&O Follow final cultures O2 to maintain saturation Aspiration precautions 4W/4S monitoring Dr Morgan CCTime 35"
[2016-04-10] MEDS: POTASSIUM CHLORIDE 40 MEQ in DEXTROSE 5%-WATER - 1,000 ML IVPB SCH (15:00)
--- NOTE | 2016-04-10 15:51 | PN ---
Progress Note, Physician Chief Complaint: AWAKE NOT RESPONDING TO VERBAL STIMULI 02 MASK ON 5LITER TENT NPO ASPIRATING - Current Medication List Current Medications: Active Medications Acetaminophen (Tylenol -) 650 mg PO Q4H PRN PRN Reason: FEVER OR PAIN Amantadine HCl (Symmetrel -) 100 mg PO DAILY REPLACED BY [facility] Last Admin: 04/10/16 09:02 Dose: Not Given Artificial Tears (Artificial Tears) 1 drop OU DAILY REPLACED BY [facility] Last Admin: 04/10/16 09:02 Dose: 1 drop Chlorhexidine Gluconate (Hibiclens For Decolonization -) 1 applic TP [facility] Last Admin: 04/09/16 23:26 Dose: 1 applic Docusate Sodium (Colace -) 300 mg PO [facility] Last Admin: 04/09/16 23:26 Dose: Not Given Heparin Sodium (Porcine) (Heparin -) 5,000 unit SQ BID REPLACED BY [facility] Last Admin: 04/10/16 09:01 Dose: 5,000 unit Piperacillin Sod/Tazobactam Sod (Zosyn 3.375gm Ivpb (Pre-Docked)) 50 mls @ 100 mls/hr IVPB Q8H-IV REPLACED BY [facility] PRN Reason: Protocol Last Admin: 04/10/16 09:01 Dose: 100 mls/hr Potassium Chloride 40 meq/ (Dextrose) 1,020 mls @ 100 mls/hr IVPB Q10H REPLACED BY [facility] Last Admin: 04/10/16 15:00 Dose: 100 mls/hr Mirtazapine (Remeron -) 15 mg PO [facility] Last Admin: 04/09/16 23:26 Dose: Not Given Mupirocin (Bactroban Ointment (For Decolonization) -) 1 applic NS BID REPLACED BY [facility] Stop: 04/14/16 09:59 Last Admin: 04/10/16 09:01 Dose: 1 applic Nystatin (Nystatin Oral Suspension -) 500,000 units PO Q6HPO REPLACED BY [facility] Last Admin: 04/10/16 12:45 Dose: Not Given Senna (Senna -) 2 tab PO [facility] Last Admin: 04/09/16 23:27 Dose: Not Given Vancomycin HCl (Vancomycin (Pre-Docked)) 1,000 mg IVPB Q24H REPLACED BY [facility] PRN Reason: Protocol Stop: 04/10/16 15:59 Last Admin: 04/09/16 17:27 Dose: 1,000 mg - Objective Vital Signs: Vital Signs Temperature 97.3 F L 04/10/16 14:00 Pulse Rate 85 04/10/16 14:00 Respiratory Rate 21 04/10/16 14:00 Blood Pressure 94/62 04/10/16 14:00 O2 Sat by Pulse Oximetry (%) 98 04/10/16 10:35 Constitutional: Yes: Mild Distress Eyes: Yes: WNL HENT: Yes: WNL Neck: Yes: WNL Cardiovascular: Yes: WNL Respiratory: Yes: On Venti-Mask Gastrointestinal: Yes: WNL Genitourinary: Yes: Incontinence Musculoskeletal: Yes: Muscle Weakness Extremities: Yes: Other Edema: No Peripheral Pulses WNL: Yes Integumentary: Yes: Other Wound/Incision: Yes: Clean/Dry Neurological: Yes: Confusion, Paresthesia, Pre-Existing Deficit, Unsteady Gait, Weakness ...Motor Strength: LUE, LLE, RUE, RLE Psychiatric: Yes: Agitated, Other Labs: CBC, BMP 04/10/16 05:10 04/10/16 05:10 INR, PTT INR 1.37 (0.82-1.09) H 04/10/16 05:10 Problem List - Problems (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 DVT PROPHYLAXIS
[2016-04-10] MEDS ORDERED: ACETAMINOPHEN 325 MG TABLET (FP) PO PRN (15:56)
[2016-04-10] MEDS ORDERED: PNEUMOC 13-VAL CONJ-DIP CRM/PF 0.5 ML DISP.SYRIN IM ONE (16:30)
[2016-04-10 17:43] LABS: CALCIUM 8.1 mg/dL (8.5-10.1); CREATININE 0.8 mg/dL (0.55-1.02)
--- NOTE | 2016-04-10 17:51 | CON.GI ---
Consult Consult Specialty:: gastroenterology Referred by:: Dr Ortega - History of Present Illness History of Present Illness: 65 y/o female with PMH of [place]'s chorea and Parkinsons was asked to be seen for PEG evaluation. She was admitted with Sepsis secondary to UTI and pneumonia. She also was noted to have respiratory distress and acute renal insufficiency associated with hypernatremia. 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 NURSE: Yes: Dementia, Parkinson's, Other ([place]'s disease) Gastrointestinal: Yes: GERD ...: No Psych: Yes: Anxiety, Depression, Psychosis - Alcohol/Substance Use Hx Alcohol Use: No - Smoking History Smoking history: Never smoked Have you smoked in the past 12 months: No Home Medications - Allergies Allergies/Adverse Reactions: Allergies Allergy/AdvReac Type Severity Reaction Status Date / Time No Known Allergies Allergy Verified 04/08/16 15:46 - Home Medications Home Medications: Ambulatory Orders Amantadine HCl [Symmetrel -] 100 mg PO DAILY 04/08/16 Docusate Sodium 300 mg PO HS 04/08/16 Hypromellose 0.5% Opth Soln [Artificial Tears] 1 drop OU DAILY 04/08/16 Mirtazapine 7.5 mg PO HS 04/08/16 Mirtazapine 15 mg PO HS 04/08/16 Sennosides [Senna] 2 tab PO HS 04/08/16 Review of Systems Unable to obtain ROS, reason: unresponsive Physical Exam-GI Vital Signs: Vital Signs Temperature 97.2 F L 04/10/16 16:00 Pulse Rate 84 04/10/16 16:00 Respiratory Rate 19 04/10/16 16:00 Blood Pressure 96/52 04/10/16 16:00 O2 Sat by Pulse Oximetry (%) 98 04/10/16 10:35 Constitutional: Yes: Well Nourished Eyes: Yes: Conjunctiva Clear HENT: Yes: Atraumatic Neck: Yes: Supple Cardiovascular: Yes: Regular Rate and Rhythm Respiratory: Yes: CTA Bilaterally ...Palpate: Yes: Soft. No: Firm/Rigid, Guarding, Hepatomegaly, Mass, Pulsatile Mass, Splenomegaly, Tenderness Labs: CBC, BMP 04/10/16 05:10 INR, PTT INR 1.37 (0.82-1.09) H 04/10/16 05:10 Assessment/Plan DYSPHAGIA secondary to [place]'s chorea and Parkinsons, Sepsis and electrolyte imbalance R> will need NGT feeds at this time will repeat swallowing evaluation when medically stable
--- NOTE | 2016-04-10 17:58 | PN ---
Physical Exam: SUBJECTIVE: Patient seen and examined at bedside in ICU. She opens her eyes, does not track objects, and does not follow command, moans at times. Per nurse, no acute event overnight OBJECTIVE: Vital Signs Period Temp Pulse Resp BP Sys/Rae Pulse Ox Last 24 Hr 97 F-98.3 F 70-93 17-22 89-111/52-78 97-99 GENERAL: awake, unaware, open eyes but does not follow commands, on face tent 50 % LUNGS: Poor air entry, decreased breath sounds HEART: Regular rate and rhythm, S1, S2 without murmur, rub or gallop. ABDOMEN: Soft, nontender, nondistended, normoactive bowel sounds EXTREMITIES: no edema. CBCD WBC 15.4 K/mm3 (4.0-10.0) H 04/10/16 05:10 RBC 4.36 M/mm3 (3.60-5.2) 04/10/16 05:10 Hgb 12.1 GM/dL (10.7-15.3) 04/10/16 05:10 Hct 37.5 % (32.4-45.2) 04/10/16 05:10 MCV 86.1 fl (80-96) 04/10/16 05:10 MCHC 32.2 g/dl (32.0-36.0) 04/10/16 05:10 RDW 15.6 % (11.6-15.6) 04/10/16 05:10 Plt Count 136 K/MM3 (134-434) 04/10/16 05:10 MPV 11.9 fl (7.5-11.1) H 04/10/16 05:10 CMP Sodium 170 mmol/L (136-145) H* 04/10/16 05:10 Potassium 4.1 mmol/L (3.5-5.1) D 04/10/16 05:10 Chloride 141 mmol/L (98-107) H 04/10/16 05:10 Carbon Dioxide 20 mmol/L (21-32) L 04/10/16 05:10 Anion Gap 9 (8-16) 04/10/16 05:10 BUN 32 mg/dL (7-18) H D 04/10/16 05:10 Creatinine 0.8 mg/dL (0.55-1.02) 04/10/16 05:10 Creat Clearance w eGFR > 60 (>60) 04/10/16 05:10 Calcium 8.0 mg/dL (8.5-10.1) L 04/10/16 05:10 Total Bilirubin 0.4 mg/dL (0.2-1.0) D 04/10/16 05:10 AST 26 U/L (15-37) D 04/10/16 05:10 ALT 32 U/L (12-78) 04/10/16 05:10 Alkaline Phosphatase 79 U/L (45-117) 04/10/16 05:10 Total Protein 5.0 g/dl (6.4-8.2) L 04/10/16 05:10 Albumin 2.2 g/dl (3.4-5.0) L 04/10/16 05:10 Intake & Output 04/07/16 04/08/16 04/09/16 04/10/16 23:59 23:59 23:59 23:59 Intake Total 1000 4375 2500 Output Total 50 300 1000 Balance 950 4075 1500 Weight 44.906 kg 44.906 kg 50.802 kg Urine Test Results Urine Color Yellow 04/08/16 16:48 Urine Appearance Clear 04/08/16 16:48 Urine pH 5.0 (5.0-8.0) 04/08/16 16:48 Ur Specific [place] 1.027 (1.001-1.035) 04/08/16 16:48 Urine Protein 1+ (NEGATIVE) H 04/08/16 16:48 Urine Glucose (UA) Negative (NEGATIVE) 04/08/16 16:48 Urine Ketones Trace (NEGATIVE) H 04/08/16 16:48 Urine Blood 1+ (NEGATIVE) H 04/08/16 16:48 Urine Nitrite Positive (NEGATIVE) 04/08/16 16:48 Urine Bilirubin Negative (NEGATIVE) 04/08/16 16:48 Ur Leukocyte Esterase Negative (NEGATIVE) 04/08/16 16:48 Urine RBC 25 /hpf (0-3) 04/08/16 16:48 Urine WBC 2 /hpf (3-5) 04/08/16 16:48 Ur Epithelial Cells Rare /hpf (FEW) 04/08/16 16:48 Urine Bacteria Many /hpf (NONE SEEN) 04/08/16 16:48 Urine Mucus Moderate 04/08/16 16:48 Active Medications Generic Name Dose Route Start Last Admin Trade Name Freq PRN Reason Stop Dose Admin Acetaminophen 650 mg 04/10/16 15:56 Tylenol - PO Q4H PRN FEVER OR PAIN Amantadine HCl 100 mg 04/11/16 10:00 Symmetrel - PO DAILY [facility] Artificial Tears 1 drop 04/11/16 10:00 Artificial Tears OU DAILY [facility] Chlorhexidine Gluconate 1 applic 04/10/16 22:00 Hibiclens For Decolonization - TP HS [facility] Docusate Sodium 300 mg 04/10/16 22:00 Colace - PO HS [facility] Heparin Sodium (Porcine) 5,000 unit 04/10/16 22:00 Heparin - SQ BID [facility] Potassium Chloride 40 meq/ 1,020 mls @ 100 mls/hr 04/10/16 14:00 04/10/16 15:00 Dextrose IVPB 100 mls/hr Q10H [facility] Administration Piperacillin Sod/Tazobactam Sod 50 mls @ 100 mls/hr 04/10/16 18:00 Zosyn 3.375gm Ivpb (Pre-Docked) IVPB Q8H-IV [facility] Protocol Mirtazapine 15 mg 04/10/16 22:00 Remeron - PO HS [facility] Mupirocin 1 applic 04/10/16 22:00 Bactroban Ointment (For Decolonization) - NS 04/14/16 09:59 BID [facility] Nystatin 500,000 units 04/10/16 18:00 Nystatin Oral Suspension - PO Q6HPO [facility] Senna 2 tab 04/10/16 22:00 Senna - PO HS [facility] Vancomycin HCl 1,000 mg 04/10/16 16:00 Vancomycin (Pre-Docked) IVPB Q24H [facility] Protocol Imaging CXR 04/10: segemental LL infiltrate CXR 04/09: LLL infiltrate ASSESSMENT/PLAN: 65 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 Spoke to patient's brother on the phone, he said patient was rather functional 1 month ago. She was able to recognize people, converse, eats without difficulty but her mental status deteriorated acutely 1 month ago. ID: Sepsis 2/2 pneumonia vs. UTI - Persistent leukocytosis, afrebile overnight - UA -ve - LLL infiltrate - Blood and urine cultures negative - Lactic acid normalized - Continue empiric vancomycin and zosyn Renal: Severe hypernatremia, hypokalemia and rhabdomyolysis - Fluid changed to D5W + 40 Meq KCl @ 100ml/hr - CT head -ve for swelling or herniation - Neuro check Q2H Pulm: Infiltrate on CXR - On face tent 50% 5L - On abx Neuro: Acute mental status change 2/2 Dementia, Garland's and Parkinson's - AMS likely due to advance Garland's - Neuro check Q2H - Cont. current medication Cardiac: NSTEMI 2/2 Demand ischemia - Troponins trending down - Correcting underlying cause FEN - On fluid as stated above - Cont. to monitor BMP - Not a candidate for PEG tube placement per GI, NPO for now - Prophylaxis - DVT: heparin SQ - GI: not indicated yet Disposition - Transferred to regular floor Code status - Full code Visit type - Emergency Visit Emergency Visit: No - New Patient This patient is new to me today: No - Critical Care Critical Care patient: Yes Total Critical Care Time (in minutes): 35 Critical Care Statement: The care of this patient involved high complexity decision making to prevent further life threatening deterioration of the patient 's condition and/or to evalute & treat vital organ system(s) failure or risk of failure.
[2016-04-10] MEDS: VANCOMYCIN 1 GRAM (PRE-DOCKED) 1,000 MG/250 ML BAG IVPB SCH (18:51)
[2016-04-10] MEDS ORDERED: CHLORHEXIDINE GLUCONATE 4% CLEANSER FOR DECOLONIZATION TP SCH (22:00)
[2016-04-10] MEDS: MIRTAZAPINE 15 MG TABLET (FP) PO SCH (22:16)
[2016-04-10] MEDS: SENNOSIDES 8.6MG TABLET (FP) PO SCH (22:16)
[2016-04-10] MEDS: DOCUSATE SODIUM 100 MG CAPSULE (FP) PO SCH (22:16)
[2016-04-11] MEDS: NYSTATIN 500,000 UNITS/5 ML SUSPENSION PO SCH ×4 (00:13→17:03)
[2016-04-11] MEDS: PIPERACILLIN/TAZOB 3.375 GM 50 ML IVPB SCH ×3 (02:10→17:12)
[2016-04-11] MEDS: POTASSIUM CHLORIDE 40 MEQ in DEXTROSE 5%-WATER - 1,000 ML IVPB SCH ×3 (05:20→10:00)
[2016-04-11] MEDS: ARTIFICIAL TEARS (POLYVINYL ALCOHOL 1.4%) OPTH DROPS OU SCH (09:47)
[2016-04-11] MEDS: MUPIROCIN 2% TOPICAL OINTMENT FOR DECOLONIZATION NS SCH (09:48)
[2016-04-11] MEDS: AMANTADINE HCL 100 MG TABLET PO SCH (09:49)
[2016-04-11] MEDS: HEPARIN NA (PORCINE) 5,000 UNITS/ML 1ML VIAL SQ SCH ×2 (09:49→22:46)
--- NOTE | 2016-04-11 10:56 | PN ---
Progress Note, Physician History of Present Illness: pulmonary more awake,-resp distress ,non-verbal,does not follow commands - Current Medication List Current Medications: Active Medications Acetaminophen (Tylenol -) 650 mg PO Q4H PRN PRN Reason: FEVER OR PAIN Amantadine HCl (Symmetrel -) 100 mg PO DAILY [facility] Last Admin: 04/11/16 09:49 Dose: Not Given Artificial Tears (Artificial Tears) 1 drop OU DAILY [facility] Last Admin: 04/11/16 09:47 Dose: 1 drop Chlorhexidine Gluconate (Hibiclens For Decolonization -) 1 applic TP [facility] Last Admin: 04/10/16 22:34 Dose: Not Given Docusate Sodium (Colace -) 300 mg PO [facility] Last Admin: 04/10/16 22:16 Dose: Not Given Heparin Sodium (Porcine) (Heparin -) 5,000 unit SQ BID [facility] Last Admin: 04/11/16 09:49 Dose: 5,000 unit Potassium Chloride 40 meq/ (Dextrose) 1,020 mls @ 100 mls/hr IVPB Q10H [facility] Last Admin: 04/11/16 06:11 Dose: 100 mls/hr Piperacillin Sod/Tazobactam Sod (Zosyn 3.375gm Ivpb (Pre-Docked)) 50 mls @ 100 mls/hr IVPB Q8H-IV [facility] PRN Reason: Protocol Last Admin: 04/11/16 09:48 Dose: 100 mls/hr Mirtazapine (Remeron -) 15 mg PO [facility] Last Admin: 04/10/16 22:16 Dose: Not Given Mupirocin (Bactroban Ointment (For Decolonization) -) 1 applic NS BID [facility] Stop: 04/14/16 09:59 Last Admin: 04/11/16 09:48 Dose: 1 applic Nystatin (Nystatin Oral Suspension -) 500,000 units PO Q6HPO [facility] Last Admin: 04/11/16 06:07 Dose: Not Given Senna (Senna -) 2 tab PO [facility] Last Admin: 04/10/16 22:16 Dose: Not Given Vancomycin HCl (Vancomycin (Pre-Docked)) 1,000 mg IVPB Q24H [facility] PRN Reason: Protocol Last Admin: 04/10/16 18:51 Dose: 1,000 mg - Objective Vital Signs: Vital Signs Temperature 97.8 F 04/11/16 09:00 Pulse Rate 72 04/11/16 09:00 Respiratory Rate 18 04/11/16 09:00 Blood Pressure 105/70 04/11/16 09:00 O2 Sat by Pulse Oximetry (%) 99 04/10/16 21:00 Constitutional: Yes: Calm, Thin Eyes: Yes: WNL HENT: Yes: WNL Neck: Yes: Supple Cardiovascular: Yes: Regular Rate and Rhythm, S1, S2 Respiratory: Yes: Diminished (poor inspiratory effort) Gastrointestinal: Yes: Normal Bowel Sounds, Soft Extremities: Yes: WNL Edema: No Labs: CBC, BMP 04/10/16 05:10 04/10/16 16:15 INR, PTT INR 1.37 (0.82-1.09) H 04/10/16 05:10 Problem List - Problems (1) Dysphagia Code(s): R13.10 - DYSPHAGIA, UNSPECIFIED (2) [place]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 (3) Hypernatremia Code(s): E87.0 - HYPEROSMOLALITY AND HYPERNATREMIA (4) Pneumonia Code(s): J18.9 - PNEUMONIA, UNSPECIFIED ORGANISM (5) Sepsis Code(s): A41.9 - SEPSIS, UNSPECIFIED ORGANISM Qualifiers: Sepsis type: sepsis due to unspecified organism Qualified Code(s): A41.9 - Sepsis, unspecified organism (6) UTI (urinary tract infection) Code(s): N39.0 - URINARY TRACT INFECTION, SITE NOT SPECIFIED Qualifiers: Urinary tract infection type: site unspecified Hematuria presence: without hematuria Qualified Code(s): N39.0 - Urinary tract infection, site not specified Assessment/Plan Assessment/Plan Sepsis likely due to UTI Suspected Aspiration PNA Advanced Shawanda's and Parkinson's disease Severe hypernatremia Rhabdomyolysis PLAN: ABX per ID IVF Strict I&O O2 to maintain saturation Aspiration precautions monitor lytes,na f/u chest x-ray antibiotics DR GHOSH
--- NOTE | 2016-04-11 12:07 | PN ---
Progress Note, [employer] - Note Progress Note: Appears comfortable. Not responding to verbal or tactile stimulation. Impaired POO intake over last 2 months at ID before admission, with further deterioration in function. Appreciate GI consult. PEG being considered. Continue NPO.
--- NOTE | 2016-04-11 13:28 | PN ---
Progress Note (short form) - Note Progress Note: NAD Vital Signs Period Temp Pulse Resp BP Sys/Rae Pulse Ox Last 24 Hr 96 F-98.1 F 72-85 18-21 94-116/52-70 99 cor-rrr llungs decreased bs at bases abd soft,nt ext- no edema CBC, BMP 04/10/16 05:10 04/10/16 16:15 Microbiology 04/08/16 16:30 Blood - Peripheral Venous Blood Culture - Preliminary NO GROWTH OBTAINED AFTER 48 HOURS, INCUBATION TO CONTINUE FOR 3 DAYS. 04/08/16 16:30 Blood - Peripheral Venous Blood Culture - Preliminary NO GROWTH OBTAINED AFTER 48 HOURS, INCUBATION TO CONTINUE FOR 3 DAYS. 04/08/16 16:48 Urine - Urine Hewitt Urine Culture - Final NO GROWTH OBTAINED 04/09/16 10:50 Urine For Antigen Detection Legionella Antigen - Final 04/09/16 10:50 Urine For Antigen Detection Streptococcus pneumoniae Antigen (M - Final 04/09/16 00:50 Nasopharyngeal Swab Respiratory Virus Panel - Preliminary 04/09/16 00:50 Nasopharyngeal Swab Influenza Types A,B Antigen (SELMA) - Final 04/09/16 00:50 Nasopharyngeal Swab - Final a/p pneumonia- HCAP- probable aspiration continue vanco/zosyn #3 dehydration/electrolyte abnormalities- continue IVF Huntingtons disease dementia
--- NOTE | 2016-04-11 13:45 | PN ---
Progress Note, Physician History of Present Illness: Pt seen and examined at bedside. She is now in the medical olivia. She appears comfortable. - Current Medication List Current Medications: Active Medications Acetaminophen (Tylenol -) 650 mg PO Q4H PRN PRN Reason: FEVER OR PAIN Amantadine HCl (Symmetrel -) 100 mg PO DAILY [facility] Last Admin: 04/11/16 09:49 Dose: Not Given Artificial Tears (Artificial Tears) 1 drop OU DAILY [facility] Last Admin: 04/11/16 09:47 Dose: 1 drop Chlorhexidine Gluconate (Hibiclens For Decolonization -) 1 applic TP [facility] Last Admin: 04/10/16 22:34 Dose: Not Given Docusate Sodium (Colace -) 300 mg PO [facility] Last Admin: 04/10/16 22:16 Dose: Not Given Heparin Sodium (Porcine) (Heparin -) 5,000 unit SQ BID [facility] Last Admin: 04/11/16 09:49 Dose: 5,000 unit Potassium Chloride 40 meq/ (Dextrose) 1,020 mls @ 100 mls/hr IVPB Q10H [facility] Last Admin: 04/11/16 06:11 Dose: 100 mls/hr Piperacillin Sod/Tazobactam Sod (Zosyn 3.375gm Ivpb (Pre-Docked)) 50 mls @ 100 mls/hr IVPB Q8H-IV [facility] PRN Reason: Protocol Last Admin: 04/11/16 09:48 Dose: 100 mls/hr Mirtazapine (Remeron -) 15 mg PO [facility] Last Admin: 04/10/16 22:16 Dose: Not Given Mupirocin (Bactroban Ointment (For Decolonization) -) 1 applic NS BID [facility] Stop: 04/14/16 09:59 Last Admin: 04/11/16 09:48 Dose: 1 applic Nystatin (Nystatin Oral Suspension -) 500,000 units PO Q6HPO [facility] Last Admin: 04/11/16 11:43 Dose: Not Given Senna (Senna -) 2 tab PO [facility] Last Admin: 04/10/16 22:16 Dose: Not Given Vancomycin HCl (Vancomycin (Pre-Docked)) 1,000 mg IVPB Q24H [facility] PRN Reason: Protocol Last Admin: 04/10/16 18:51 Dose: 1,000 mg - Objective Vital Signs: Vital Signs Temperature 97.8 F 04/11/16 09:00 Pulse Rate 72 04/11/16 09:00 Respiratory Rate 18 04/11/16 09:00 Blood Pressure 105/70 04/11/16 09:00 O2 Sat by Pulse Oximetry (%) 99 04/10/16 21:00 Constitutional: Yes: Calm Eyes: Yes: Conjunctiva Clear HENT: Yes: Atraumatic Cardiovascular: Yes: S1, S2 Respiratory: Yes: On Venti-Mask Gastrointestinal: Yes: Soft Genitourinary: Yes: Hew[place] Present Musculoskeletal: Yes: Muscle Weakness Edema: No Neurological: Yes: Pre-Existing Deficit Labs: CBC, BMP 04/10/16 05:10 04/10/16 16:15 INR, PTT INR 1.37 (0.82-1.09) H 04/10/16 05:10 Problem List - Problems (1) [place]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 (2) Hypernatremia Code(s): E87.0 - HYPEROSMOLALITY AND HYPERNATREMIA (3) Hypokalemia Code(s): E87.6 - HYPOKALEMIA (4) Sepsis Code(s): A41.9 - SEPSIS, UNSPECIFIED ORGANISM Qualifiers: Sepsis type: sepsis due to unspecified organism Qualified Code(s): A41.9 - Sepsis, unspecified organism (5) UTI (urinary tract infection) Code(s): N39.0 - URINARY TRACT INFECTION, SITE NOT SPECIFIED Qualifiers: Urinary tract infection type: site unspecified Hematuria presence: without hematuria Qualified Code(s): N39.0 - Urinary tract infection, site not specified Assessment/Plan Current Medications Generic Name Dose Route Start Last Admin Trade Name Freq PRN Reason Stop Dose Admin Acetaminophen 650 mg 04/10/16 15:56 Tylenol - PO Q4H PRN FEVER OR PAIN Amantadine HCl 100 mg 04/11/16 10:00 04/11/16 09:49 Symmetrel - PO Not Given DAILY [facility] Artificial Tears 1 drop 04/11/16 10:00 04/11/16 09:47 Artificial Tears OU 1 drop DAILY [facility] Administration Chlorhexidine Gluconate 1 applic 04/10/16 22:00 04/10/16 22:34 Hibiclens For Decolonization - TP Not Given HS [facility] Docusate Sodium 300 mg 04/10/16 22:00 04/10/16 22:16 Colace - PO Not Given HS [facility] Heparin Sodium (Porcine) 5,000 unit 04/10/16 22:00 04/11/16 09:49 Heparin - SQ 5,000 unit BID [facility] Administration Potassium Chloride 40 meq/ 1,020 mls @ 100 mls/hr 04/10/16 14:00 04/11/16 06:11 Dextrose IVPB 100 mls/hr Q10H [facility] Administration Piperacillin Sod/Tazobactam Sod 50 mls @ 100 mls/hr 04/10/16 18:00 04/11/16 09: 48 Zosyn 3.375gm Ivpb (Pre-Docked) IVPB 100 mls/hr Q8H-IV [facility] Administration Protocol Mirtazapine 15 mg 04/10/16 22:00 04/10/16 22:16 Remeron - PO Not Given HS [facility] Mupirocin 1 applic 04/10/16 22:00 04/11/16 09:48 Bactroban Ointment (For Decolonization) - NS 04/14/16 09:59 1 applic BID [facility] Administration Nystatin 500,000 units 04/10/16 18:00 04/11/16 11:43 Nystatin Oral Suspension - PO Not Given Q6HPO [facility] Senna 2 tab 04/10/16 22:00 04/10/16 22:16 Senna - PO Not Given HS [facility] Vancomycin HCl 1,000 mg 04/10/16 16:00 04/10/16 18:51 Vancomycin (Pre-Docked) IVPB 1,000 mg Q24H [facility] Administration Protocol Impression 1. Hypernatremia 2. hypokalemia 3. [place]'s disease 4. depression 5. sepsis 6. UTI 7. rhabdo 8. malnutrition Plan - ordered stat BMP now - call me with results please - GI eval - will continue fluids - consider placing NG tube and starting feeds - pt appears profoundly dehydrated - renal function is stabilizing - cont abx - follow cultures, no growth to date - check CK Dr Lord
[2016-04-11 16:04] LABS: CALCIUM 7.7 mg/dL (8.5-10.1); CREATININE 0.7 mg/dL (0.55-1.02); MAGNESIUM 2.8 mg/dL (1.8-2.4)
--- NOTE | 2016-04-11 17:00 | PN ---
Progress Note (short form) - Note Progress Note: Laboratory Tests 04/11/16 04/11/16 14:45 14:45 Sodium 155 H Potassium 4.0 Carbon Dioxide 24 Anion Gap 7 L BUN 17 D Creatinine 0.7 Creatine Kinase 304 H D labs reviewed. change fluids to NS Problem List - Problems (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 (2) Hypernatremia Code(s): E87.0 - HYPEROSMOLALITY AND HYPERNATREMIA (3) Hypokalemia Code(s): E87.6 - HYPOKALEMIA (4) Sepsis Code(s): A41.9 - SEPSIS, UNSPECIFIED ORGANISM Qualifiers: Sepsis type: sepsis due to unspecified organism Qualified Code(s): A41.9 - Sepsis, unspecified organism (5) UTI (urinary tract infection) Code(s): N39.0 - URINARY TRACT INFECTION, SITE NOT SPECIFIED Qualifiers: Urinary tract infection type: site unspecified Hematuria presence: without hematuria Qualified Code(s): N39.0 - Urinary tract infection, site not specified
[2016-04-11] MEDS: VANCOMYCIN 1 GRAM (PRE-DOCKED) 1,000 MG/250 ML BAG IVPB SCH (17:11)
[2016-04-11] MEDS ORDERED: DEXTROSE 5%-NORMAL SALINE 1,000 ML IV SCH (17:15)
--- NOTE | 2016-04-11 18:15 | PN ---
Progress Note, Physician Chief Complaint: AWAKE, ALERT 02 MASK ON NON-VERBAL - Current Medication List Current Medications: Active Medications Acetaminophen (Tylenol -) 650 mg PO Q4H PRN PRN Reason: FEVER OR PAIN Amantadine HCl (Symmetrel -) 100 mg PO DAILY [facility] Last Admin: 04/11/16 09:49 Dose: Not Given Artificial Tears (Artificial Tears) 1 drop OU DAILY [facility] Last Admin: 04/11/16 09:47 Dose: 1 drop Chlorhexidine Gluconate (Hibiclens For Decolonization -) 1 applic TP [facility] Last Admin: 04/10/16 22:34 Dose: Not Given Docusate Sodium (Colace -) 300 mg PO [facility] Last Admin: 04/10/16 22:16 Dose: Not Given Heparin Sodium (Porcine) (Heparin -) 5,000 unit SQ BID [facility] Last Admin: 04/11/16 09:49 Dose: 5,000 unit Piperacillin Sod/Tazobactam Sod (Zosyn 3.375gm Ivpb (Pre-Docked)) 50 mls @ 100 mls/hr IVPB Q8H-IV [facility] PRN Reason: Protocol Last Admin: 04/11/16 17:12 Dose: 100 mls/hr Dextrose/Sodium Chloride (D5-Ns -) 1,000 mls @ 75 mls/hr IV ASDIR [facility] Last Admin: 04/11/16 17:11 Dose: 75 mls/hr Mirtazapine (Remeron -) 15 mg PO [facility] Last Admin: 04/10/16 22:16 Dose: Not Given Mupirocin (Bactroban Ointment (For Decolonization) -) 1 applic NS BID [facility] Stop: 04/14/16 09:59 Last Admin: 04/11/16 09:48 Dose: 1 applic Nystatin (Nystatin Oral Suspension -) 500,000 units PO Q6HPO [facility] Last Admin: 04/11/16 17:03 Dose: Not Given Senna (Senna -) 2 tab PO [facility] Last Admin: 04/10/16 22:16 Dose: Not Given Vancomycin HCl (Vancomycin (Pre-Docked)) 1,000 mg IVPB Q24H [facility] PRN Reason: Protocol Last Admin: 04/11/16 17:11 Dose: 1,000 mg - Objective Vital Signs: Vital Signs Temperature 97.5 F L 04/11/16 17:00 Pulse Rate 77 04/11/16 17:00 Respiratory Rate 20 04/11/16 17:00 Blood Pressure 115/68 04/11/16 17:00 O2 Sat by Pulse Oximetry (%) 99 04/10/16 21:00 Constitutional: Yes: Mild Distress Eyes: Yes: WNL HENT: Yes: WNL Neck: Yes: WNL Cardiovascular: Yes: WNL Respiratory: Yes: On Venti-Mask Gastrointestinal: Yes: WNL Musculoskeletal: Yes: Muscle Weakness Extremities: Yes: Other Edema: No Peripheral Pulses WNL: Yes Integumentary: Yes: WNL Wound/Incision: Yes: Clean/Dry Neurological: Yes: Pre-Existing Deficit, Unsteady Gait, Weakness Psychiatric: Yes: Other Labs: CBC, BMP 04/10/16 05:10 04/11/16 14:45 INR, PTT INR 1.37 (0.82-1.09) H 04/10/16 05:10 Problem List - Problems (1) [place]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 (2) Hyperglycemia Code(s): R73.9 - HYPERGLYCEMIA, UNSPECIFIED (3) Hypernatremia Code(s): E87.0 - HYPEROSMOLALITY AND HYPERNATREMIA (4) Pneumonia Code(s): J18.9 - PNEUMONIA, UNSPECIFIED ORGANISM (5) Sepsis Code(s): A41.9 - SEPSIS, UNSPECIFIED ORGANISM Qualifiers: Sepsis type: sepsis due to unspecified organism Qualified Code(s): A41.9 - Sepsis, unspecified organism (6) Dysphagia Code(s): R13.10 - DYSPHAGIA, UNSPECIFIED (7) UTI (urinary tract infection) Code(s): N39.0 - URINARY TRACT INFECTION, SITE NOT SPECIFIED Qualifiers: Urinary tract infection type: site unspecified Hematuria presence: without hematuria Qualified Code(s): N39.0 - Urinary tract infection, site not specified Assessment/Plan NPO POSSIBLE GTUBE WHEN STABLE IV ABX FOR PNA AND UTI IVF FOLLOW NA+ RENAL EVAL APPREC. DVT PROPHYLAXIS
[2016-04-11] MEDS: MIRTAZAPINE 15 MG TABLET (FP) PO SCH (21:53)
[2016-04-11] MEDS: DOCUSATE SODIUM 100 MG CAPSULE (FP) PO SCH (21:53)
[2016-04-11] MEDS: SENNOSIDES 8.6MG TABLET (FP) PO SCH (21:54)
[2016-04-12] MEDS: NYSTATIN 500,000 UNITS/5 ML SUSPENSION PO SCH ×4 (00:40→17:53)
[2016-04-12] MEDS: PIPERACILLIN/TAZOB 3.375 GM 50 ML IVPB SCH ×3 (01:19→17:51)
[2016-04-12 09:09] LABS: CALCIUM 7.2 mg/dL (8.5-10.1); CREATININE 0.6 mg/dL (0.55-1.02); MAGNESIUM 2.2 mg/dL (1.8-2.4)
[2016-04-12] MEDS: AMANTADINE HCL 100 MG TABLET PO SCH (09:29)
[2016-04-12] MEDS: HEPARIN NA (PORCINE) 5,000 UNITS/ML 1ML VIAL SQ SCH ×2 (09:29→21:31)
[2016-04-12] MEDS: ARTIFICIAL TEARS (POLYVINYL ALCOHOL 1.4%) OPTH DROPS OU SCH (09:29)
--- NOTE | 2016-04-12 09:34 | PN ---
Progress Note, Physician Chief Complaint: AWAKE NON-VERBAL 02 OXYGEN MASK - Current Medication List Current Medications: Active Medications Acetaminophen (Tylenol -) 650 mg PO Q4H PRN PRN Reason: FEVER OR PAIN Amantadine HCl (Symmetrel -) 100 mg PO [facility]ILY [facility] Last Admin: 04/12/16 09:29 Dose: Not Given Artificial Tears (Artificial Tears) 1 drop OU DAILY [facility] Last Admin: 04/12/16 09:29 Dose: 1 drop Docusate Sodium (Colace -) 300 mg PO [facility] Last Admin: 04/11/16 21:53 Dose: Not Given Heparin Sodium (Porcine) (Heparin -) 5,000 unit SQ BID [facility] Last Admin: 04/12/16 09:29 Dose: 5,000 unit Piperacillin Sod/Tazobactam Sod (Zosyn 3.375gm Ivpb (Pre-Docked)) 50 mls @ 100 mls/hr IVPB Q8H-IV [facility] PRN Reason: Protocol Last Admin: 04/12/16 09:28 Dose: 100 mls/hr Dextrose/Sodium Chloride (D5-Ns -) 1,000 mls @ 75 mls/hr IV ASDIR [facility] Last Admin: 04/11/16 17:11 Dose: 75 mls/hr Mirtazapine (Remeron -) 15 mg PO [facility] Last Admin: 04/11/16 21:53 Dose: Not Given Nystatin (Nystatin Oral Suspension -) 500,000 units PO Q6HPO [facility] Last Admin: 04/12/16 05:42 Dose: Not Given Senna (Senna -) 2 tab PO [facility] Last Admin: 04/11/16 21:54 Dose: Not Given Vancomycin HCl (Vancomycin (Pre-Docked)) 1,000 mg IVPB Q24H [facility] PRN Reason: Protocol Last Admin: 04/11/16 17:11 Dose: 1,000 mg - Objective Vital Signs: Vital Signs Temperature 97.7 F 04/12/16 05:37 Pulse Rate 80 04/12/16 05:37 Respiratory Rate 18 04/12/16 05:37 Blood Pressure 114/73 04/12/16 05:37 O2 Sat by Pulse Oximetry (%) 99 04/10/16 21:00 Constitutional: Yes: Mild Distress Eyes: Yes: WNL HENT: Yes: WNL Neck: Yes: WNL Cardiovascular: Yes: WNL Respiratory: Yes: On Venti-Mask Gastrointestinal: Yes: WNL Genitourinary: Yes: Incontinence Musculoskeletal: Yes: Muscle Weakness Extremities: Yes: Deformity Edema: No Peripheral Pulses WNL: Yes Integumentary: Yes: Rash Wound/Incision: Yes: Clean/Dry Neurological: Yes: Confusion, Pre-Existing Deficit, Unsteady Gait, Weakness ...Motor Strength: LUE, LLE, RUE, RLE Psychiatric: Yes: Other Labs: CBC, BMP 04/10/16 05:10 04/12/16 08:35 INR, PTT INR 1.37 (0.82-1.09) H 04/10/16 05:10 Problem List - Problems (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 (2) Hyperglycemia Code(s): R73.9 - HYPERGLYCEMIA, UNSPECIFIED (3) Hypernatremia Code(s): E87.0 - HYPEROSMOLALITY AND HYPERNATREMIA (4) Pneumonia Code(s): J18.9 - PNEUMONIA, UNSPECIFIED ORGANISM (5) Sepsis Code(s): A41.9 - SEPSIS, UNSPECIFIED ORGANISM Qualifiers: Sepsis type: sepsis due to unspecified organism Qualified Code(s): A41.9 - Sepsis, unspecified organism (6) Dysphagia Code(s): R13.10 - DYSPHAGIA, UNSPECIFIED (7) UTI (urinary tract infection) Code(s): N39.0 - URINARY TRACT INFECTION, SITE NOT SPECIFIED Qualifiers: Urinary tract infection type: site unspecified Hematuria presence: without hematuria Qualified Code(s): N39.0 - Urinary tract infection, site not specified Assessment/Plan NPO POSSIBLE GTUBE WHEN STABLE IV ABX FOR PNA AND UTI IVF FOLLOW NA+ 150 KCL REPLETED RENAL EVAL APPREC. DVT PROPHYLAXIS
--- NOTE | 2016-04-12 11:00 | PN ---
Progress Note, Physician History of Present Illness: pulmonary awake,non-verbal,-resp distress - Current Medication List Current Medications: Active Medications Acetaminophen (Tylenol -) 650 mg PO Q4H PRN PRN Reason: FEVER OR PAIN Amantadine HCl (Symmetrel -) 100 mg PO DAILY [facility] Last Admin: 04/12/16 09:29 Dose: Not Given Artificial Tears (Artificial Tears) 1 drop OU DAILY [facility] Last Admin: 04/12/16 09:29 Dose: 1 drop Docusate Sodium (Colace -) 300 mg PO HS [facility] Last Admin: 04/11/16 21:53 Dose: Not Given Heparin Sodium (Porcine) (Heparin -) 5,000 unit SQ BID [facility] Last Admin: 04/12/16 09:29 Dose: 5,000 unit Piperacillin Sod/Tazobactam Sod (Zosyn 3.375gm Ivpb (Pre-Docked)) 50 mls @ 100 mls/hr IVPB Q8H-IV [facility] PRN Reason: Protocol Last Admin: 04/12/16 09:28 Dose: 100 mls/hr Dextrose/Sodium Chloride (D5-Ns -) 1,000 mls @ 75 mls/hr IV ASDIR [facility] Last Admin: 04/11/16 17:11 Dose: 75 mls/hr Potassium Chloride (Potassium Chloride 10 Meq Premix Ivpb -) 100 mls @ 100 mls/ hr IVPB Q60M [facility] Stop: 04/12/16 12:44 Mirtazapine (Remeron -) 15 mg PO HS [facility] Last Admin: 04/11/16 21:53 Dose: Not Given Nystatin (Nystatin Oral Suspension -) 500,000 units PO Q6HPO [facility] Last Admin: 04/12/16 05:42 Dose: Not Given Senna (Senna -) 2 tab PO [facility] Last Admin: 04/11/16 21:54 Dose: Not Given Vancomycin HCl (Vancomycin (Pre-Docked)) 1,000 mg IVPB Q24H [facility] PRN Reason: Protocol Last Admin: 04/11/16 17:11 Dose: 1,000 mg - Objective Vital Signs: Vital Signs Temperature 97.7 F 04/12/16 05:37 Pulse Rate 80 04/12/16 05:37 Respiratory Rate 18 04/12/16 05:37 Blood Pressure 114/73 04/12/16 05:37 O2 Sat by Pulse Oximetry (%) 99 04/10/16 21:00 Constitutional: Yes: Calm, Thin Eyes: Yes: WNL HENT: Yes: WNL Neck: Yes: WNL Cardiovascular: Yes: Regular Rate and Rhythm, S1, S2 Respiratory: Yes: Diminished (poor insp effort) Gastrointestinal: Yes: Normal Bowel Sounds, Soft Extremities: Yes: WNL Edema: No Labs: CBC, BMP 04/10/16 05:10 04/12/16 08:35 INR, PTT INR 1.37 (0.82-1.09) H 04/10/16 05:10 Problem List - Problems (1) Dysphagia Code(s): R13.10 - DYSPHAGIA, UNSPECIFIED (2) [place]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 (3) Hypernatremia Code(s): E87.0 - HYPEROSMOLALITY AND HYPERNATREMIA (4) Pneumonia Code(s): J18.9 - PNEUMONIA, UNSPECIFIED ORGANISM (5) Sepsis Code(s): A41.9 - SEPSIS, UNSPECIFIED ORGANISM Qualifiers: Sepsis type: sepsis due to unspecified organism Qualified Code(s): A41.9 - Sepsis, unspecified organism (6) UTI (urinary tract infection) Code(s): N39.0 - URINARY TRACT INFECTION, SITE NOT SPECIFIED Qualifiers: Urinary tract infection type: site unspecified Hematuria presence: without hematuria Qualified Code(s): N39.0 - Urinary tract infection, site not specified Assessment/Plan Assessment/Plan Sepsis likely due to UTI Suspected Aspiration PNA 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
[2016-04-12] MEDS: KCL 10 MEQ IVPB 100 ML IVPB SCH ×2 (11:54→13:20)
--- NOTE | 2016-04-12 14:57 | PN ---
Progress Note, Physician History of Present Illness: Pt seen and examined at bedside. She remains in the medical [facility]. She is awake today however non responsive. - Current Medication List Current Medications: Active Medications Acetaminophen (Tylenol -) 650 mg PO Q4H PRN PRN Reason: FEVER OR PAIN Amantadine HCl (Symmetrel -) 100 mg PO DAILY [facility] Last Admin: 04/12/16 09:29 Dose: Not Given Artificial Tears (Artificial Tears) 1 drop OU DAILY [facility] Last Admin: 04/12/16 09:29 Dose: 1 drop Docusate Sodium (Colace -) 300 mg PO HS [facility] Last Admin: 04/11/16 21:53 Dose: Not Given Heparin Sodium (Porcine) (Heparin -) 5,000 unit SQ BID [facility] Last Admin: 04/12/16 09:29 Dose: 5,000 unit Piperacillin Sod/Tazobactam Sod (Zosyn 3.375gm Ivpb (Pre-Docked)) 50 mls @ 100 mls/hr IVPB Q8H-IV [facility] PRN Reason: Protocol Last Admin: 04/12/16 09:28 Dose: 100 mls/hr Dextrose/Sodium Chloride (D5-Ns -) 1,000 mls @ 75 mls/hr IV ASDIR [facility] Last Admin: 04/11/16 17:11 Dose: 75 mls/hr Mirtazapine (Remeron -) 15 mg PO [facility] Last Admin: 04/11/16 21:53 Dose: Not Given Nystatin (Nystatin Oral Suspension -) 500,000 units PO Q6HPO [facility] Last Admin: 04/12/16 11:58 Dose: Not Given Senna (Senna -) 2 tab PO [facility] Last Admin: 04/11/16 21:54 Dose: Not Given Vancomycin HCl (Vancomycin (Pre-Docked)) 1,000 mg IVPB Q24H [facility] PRN Reason: Protocol Last Admin: 04/11/16 17:11 Dose: 1,000 mg - Objective Vital Signs: Vital Signs Temperature 97.8 F 04/12/16 13:47 Pulse Rate 89 04/12/16 13:47 Respiratory Rate 20 04/12/16 13:47 Blood Pressure 117/70 04/12/16 13:47 O2 Sat by Pulse Oximetry (%) 100 04/12/16 09:00 Constitutional: Yes: Calm Eyes: Yes: Conjunctiva Clear Cardiovascular: Yes: S1, S2 Respiratory: Yes: On Venti-Mask Gastrointestinal: Yes: Soft Genitourinary: Yes: Incontinence Musculoskeletal: Yes: Muscle Weakness Edema: Yes Edema: LLE: Trace, RLE: Trace Neurological: Yes: Pre-Existing Deficit Labs: CBC, BMP 04/10/16 05:10 04/12/16 08:35 INR, PTT INR 1.37 (0.82-1.09) H 04/10/16 05:10 Problem List - Problems (1) [place]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 (2) Hypernatremia Code(s): E87.0 - HYPEROSMOLALITY AND HYPERNATREMIA (3) Hypokalemia Code(s): E87.6 - HYPOKALEMIA (4) Sepsis Code(s): A41.9 - SEPSIS, UNSPECIFIED ORGANISM Qualifiers: Sepsis type: sepsis due to unspecified organism Qualified Code(s): A41.9 - Sepsis, unspecified organism (5) UTI (urinary tract infection) Code(s): N39.0 - URINARY TRACT INFECTION, SITE NOT SPECIFIED Qualifiers: Urinary tract infection type: site unspecified Hematuria presence: without hematuria Qualified Code(s): N39.0 - Urinary tract infection, site not specified Assessment/Plan Current Medications Generic Name Dose Route Start Last Admin Trade Name Freq PRN Reason Stop Dose Admin Acetaminophen 650 mg 04/10/16 15:56 Tylenol - PO Q4H PRN FEVER OR PAIN Amantadine HCl 100 mg 04/11/16 10:00 04/12/16 09:29 Symmetrel - PO Not Given DAILY [facility] Artificial Tears 1 drop 04/11/16 10:00 04/12/16 09:29 Artificial Tears OU 1 drop DAILY [facility] Administration Docusate Sodium 300 mg 04/10/16 22:00 04/11/16 21:53 Colace - PO Not Given HS [facility] Heparin Sodium (Porcine) 5,000 unit 04/10/16 22:00 04/12/16 09:29 Heparin - SQ 5,000 unit BID [facility] Administration Piperacillin Sod/Tazobactam Sod 50 mls @ 100 mls/hr 04/10/16 18:00 04/12/16 09: 28 Zosyn 3.375gm Ivpb (Pre-Docked) IVPB 100 mls/hr Q8H-IV [facility] Administration Protocol Dextrose/Sodium Chloride 1,000 mls @ 75 mls/hr 04/11/16 17:15 04/11/16 17:11 D5-Ns - IV 75 mls/hr ASDIR [facility] Administration Mirtazapine 15 mg 04/10/16 22:00 04/11/16 21:53 Remeron - PO Not Given HS [facility] Nystatin 500,000 units 04/10/16 18:00 04/12/16 11:58 Nystatin Oral Suspension - PO Not Given Q6HPO [facility] Senna 2 tab 04/10/16 22:00 04/11/16 21:54 Senna - PO Not Given HS [facility] Vancomycin HCl 1,000 mg 04/10/16 16:00 04/11/16 17:11 Vancomycin (Pre-Docked) IVPB 1,000 mg Q24H [facility] Administration Protocol Impression 1. Hypernatremia 2. hypokalemia 3. [place]'s disease 4. depression 5. sepsis 6. UTI 7. rhabdo 8. malnutrition Plan - will start clinimix at a low dose along with fluids - replace potassium - repeat labs in am - sodium is improving - will follow patient - consider placing NG tube and starting feeds - renal function is stabilizing - cont abx - follow cultures, no growth to date - CK is improved Dr Lord
[2016-04-12] MEDS ORDERED: POTASSIUM PHOSPHATE 15 MM in SODIUM CHLORIDE 250 ML IVPB ONE (15:00)
--- NOTE | 2016-04-12 15:51 | PN ---
Progress Note (short form) - Note Progress Note: NAD nonverbal Vital Signs Period Temp Pulse Resp BP Sys/Rae Pulse Ox Last 24 Hr 97.0 F-98.6 F 77-89 18-22 114-131/63-80 96-100 cor-rrr lungs clear abd soft, nt ext no edema CBC, BMP 04/10/16 05:10 04/12/16 08:35 Microbiology 04/08/16 16:30 Blood - Peripheral Venous Blood Culture - Preliminary NO GROWTH OBTAINED AFTER 72 HOURS, INCUBATION TO CONTINUE FOR 2 DAYS. 04/08/16 16:30 Blood - Peripheral Venous Blood Culture - Preliminary NO GROWTH OBTAINED AFTER 72 HOURS, INCUBATION TO CONTINUE FOR 2 DAYS. Current Medications Acetaminophen (Tylenol -) 650 mg PO Q4H PRN PRN Reason: FEVER OR PAIN Amantadine HCl (Symmetrel -) 100 mg PO DAILY [facility] Last Admin: 04/12/16 09:29 Dose: Not Given Artificial Tears (Artificial Tears) 1 drop OU DAILY [facility] Last Admin: 04/12/16 09:29 Dose: 1 drop Docusate Sodium (Colace -) 300 mg PO HS [facility] Last Admin: 04/11/16 21:53 Dose: Not Given Heparin Sodium (Porcine) (Heparin -) 5,000 unit SQ BID [facility] Last Admin: 04/12/16 09:29 Dose: 5,000 unit Piperacillin Sod/Tazobactam Sod (Zosyn 3.375gm Ivpb (Pre-Docked)) 50 mls @ 100 mls/hr IVPB Q8H-IV [facility] PRN Reason: Protocol Last Admin: 04/12/16 09:28 Dose: 100 mls/hr Potassium Chloride 20 meq/ (Dextrose/Sodium Chloride) 1,010 mls @ 40 mls/hr IVPB ASDIR [facility] Amino Acids (Clinimix -) 1,000 mls @ 35 mls/hr IV Q12H [facility] Potassium Phosphate 15 mm/ (Sodium Chloride) 255 mls @ 62.5 mls/hr IVPB ONCE ONE Stop: 04/12/16 19:04 Mirtazapine (Remeron -) 15 mg PO HS [facility] Last Admin: 04/11/16 21:53 Dose: Not Given Nystatin (Nystatin Oral Suspension -) 500,000 units PO Q6HPO [facility] Last Admin: 04/12/16 11:58 Dose: Not Given Senna (Senna -) 2 tab PO HS [facility] Last Admin: 04/11/16 21:54 Dose: Not Given Vancomycin HCl (Vancomycin (Pre-Docked)) 1,000 mg IVPB Q24H [facility] PRN Reason: Protocol Last Admin: 04/11/16 17:11 Dose: 1,000 mg a/p pneumonia- HCAP- probable aspiration continue zosyn day #4, d/c vancomycin f/u cbc in am dehydration/electrolyte abnormalities- continue IVF [place] disease dementia
[2016-04-12] MEDS: DEXTROSE 5%-NORMAL SALINE 1,000 ML with POTASSIUM CHLORIDE 20 MEQ IVPB SCH (16:00)
[2016-04-12] MEDS: AMINO ACIDS 4.25%/D5W 1,000 ML IV SCH (17:30)
[2016-04-12] MEDS: DOCUSATE SODIUM 100 MG CAPSULE (FP) PO SCH (21:29)
[2016-04-12] MEDS: MIRTAZAPINE 15 MG TABLET (FP) PO SCH (21:31)
[2016-04-12] MEDS: SENNOSIDES 8.6MG TABLET (FP) PO SCH (21:31)
[2016-04-13] MEDS: PIPERACILLIN/TAZOB 3.375 GM 50 ML IVPB SCH ×3 (01:04→17:20)
[2016-04-13] MEDS: NYSTATIN 500,000 UNITS/5 ML SUSPENSION PO SCH ×4 (01:04→18:01)
[2016-04-13 07:38] LABS: MCH 27.8 pg (25.7-33.7); MEAN CELL VOLUME 84.1 fl (80-96); MEAN PLT VOLUME 10.8 fl (7.5-11.1); PLATELET COUNT 113 K/MM3 (134-434); RDW 13.8 % (11.6-15.6); WHITE BLOOD COUNT 8.2 K/mm3 (4.0-10.0)
[2016-04-13 08:10] LABS: ALBUMIN 1.9 g/dl (3.4-5.0); ANION GAP 8 (8-16); CALCIUM 7.5 mg/dL (8.5-10.1); CO2 27 mmol/L (21-32); GLUCOSE,RANDOM 98 mg/dL (74-106); MAGNESIUM 2.2 mg/dL (1.8-2.4)
[2016-04-13 08:14] LABS: ALK PHOS 90 U/L (45-117); BILIRUBIN,TOTAL 0.6 mg/dL (0.2-1.0); CREATININE 0.5 mg/dL (0.55-1.02); PHOSPHOROUS 2.5 mg/dL (2.5-4.9); SGOT/AST 29 U/L (15-37); SGPT/ALT 32 U/L (12-78); TOT PROT 5.1 g/dl (6.4-8.2)
[2016-04-13] MEDS ORDERED: PT OWN MED DRAWER 7, Y5N ONE (10:16)
[2016-04-13] MEDS: HEPARIN NA (PORCINE) 5,000 UNITS/ML 1ML VIAL SQ SCH ×2 (10:20→22:51)
[2016-04-13] MEDS: AMANTADINE HCL 100 MG TABLET PO SCH (10:20)
[2016-04-13] MEDS: ARTIFICIAL TEARS (POLYVINYL ALCOHOL 1.4%) OPTH DROPS OU SCH (10:24)
--- NOTE | 2016-04-13 10:43 | PN ---
Progress Note, Physician Chief Complaint: awake, confused 02 mask continued awaiting GI decision on PEG - Current Medication List Current Medications: Active Medications Acetaminophen (Tylenol -) 650 mg PO Q4H PRN PRN Reason: FEVER OR PAIN Amantadine HCl (Symmetrel -) 100 mg PO DAILY [facility] Last Admin: 04/13/16 10:20 Dose: Not Given Artificial Tears (Artificial Tears) 1 drop OU DAILY [facility] Last Admin: 04/13/16 10:24 Dose: Not Given Docusate Sodium (Colace -) 300 mg PO HS [facility] Last Admin: 04/12/16 21:29 Dose: Not Given Heparin Sodium (Porcine) (Heparin -) 5,000 unit SQ BID [facility] Last Admin: 04/13/16 10:20 Dose: 5,000 unit Piperacillin Sod/Tazobactam Sod (Zosyn 3.375gm Ivpb (Pre-Docked)) 50 mls @ 100 mls/hr IVPB Q8H-IV [facility] PRN Reason: Protocol Last Admin: 04/13/16 10:20 Dose: 100 mls/hr Potassium Chloride 20 meq/ (Dextrose/Sodium Chloride) 1,010 mls @ 40 mls/hr IVPB ASDIR [facility] Last Admin: 04/12/16 16:00 Dose: 40 mls/hr Amino Acids (Clinimix -) 1,000 mls @ 35 mls/hr IV Q24H [facility] Last Admin: 04/12/16 17:30 Dose: 35 mls/hr Mirtazapine (Remeron -) 15 mg PO HS [facility] Last Admin: 04/12/16 21:31 Dose: Not Given Nystatin (Nystatin Oral Suspension -) 500,000 units PO Q6HPO [facility] Last Admin: 04/13/16 05:52 Dose: Not Given Senna (Senna -) 2 tab PO [facility] Last Admin: 04/12/16 21:31 Dose: Not Given - Objective Vital Signs: Vital Signs Temperature 97.8 F 04/13/16 09:00 Pulse Rate 89 04/13/16 09:00 Respiratory Rate 20 04/13/16 09:00 Blood Pressure 136/70 04/13/16 09:00 O2 Sat by Pulse Oximetry (%) 94 L 04/12/16 21:00 Constitutional: Yes: Mild Distress Eyes: Yes: WNL HENT: Yes: WNL Neck: Yes: WNL Cardiovascular: Yes: WNL Respiratory: Yes: On Venti-Mask Gastrointestinal: Yes: WNL Genitourinary: Yes: Incontinence Musculoskeletal: Yes: Muscle Weakness Edema: No Peripheral Pulses WNL: Yes Integumentary: Yes: WNL Wound/Incision: Yes: Clean/Dry Neurological: Yes: Confusion, Pre-Existing Deficit, Weakness ...Motor Strength: LUE, LLE, RUE, RLE Psychiatric: Yes: Agitated Labs: CBC, BMP 04/13/16 06:35 04/13/16 06:35 INR, PTT INR 1.37 (0.82-1.09) H 04/10/16 05:10 Problem List - Problems (1) [place]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 (2) Hyperglycemia Code(s): R73.9 - HYPERGLYCEMIA, UNSPECIFIED (3) Hypernatremia Code(s): E87.0 - HYPEROSMOLALITY AND HYPERNATREMIA (4) Pneumonia Code(s): J18.9 - PNEUMONIA, UNSPECIFIED ORGANISM (5) Sepsis Code(s): A41.9 - SEPSIS, UNSPECIFIED ORGANISM Qualifiers: Sepsis type: sepsis due to unspecified organism Qualified Code(s): A41.9 - Sepsis, unspecified organism (6) Dysphagia Code(s): R13.10 - DYSPHAGIA, UNSPECIFIED (7) UTI (urinary tract infection) Code(s): N39.0 - URINARY TRACT INFECTION, SITE NOT SPECIFIED Qualifiers: Urinary tract infection type: site unspecified Hematuria presence: without hematuria Qualified Code(s): N39.0 - Urinary tract infection, site not specified Assessment/Plan DISCUSSED WITH PIPER CABALLERO, PEG LIKELY NEEDED WITH DETERIORATION OF THE ABILITY TO SWALLOW OVER THE LAST SEVERAL MONTHS. PHONE CALL TO DR CORBIN , I AM MEDICALLY CLEARING THE PATIENT FOR PEG PLACEMENT THE BENEFIT OUTWEIGHS THE RISK AT THIS TIME. FAMILY TO DECIDE AND SIGN CONSENT. IV ABX CONTINUED PNA/UTI
--- NOTE | 2016-04-13 11:09 | PN ---
Progress Note, Physician - Current Medication List Current Medications: Active Medications Acetaminophen (Tylenol -) 650 mg PO Q4H PRN PRN Reason: FEVER OR PAIN Amantadine HCl (Symmetrel -) 100 mg PO DAILY [facility] Last Admin: 04/13/16 10:20 Dose: Not Given Artificial Tears (Artificial Tears) 1 drop OU DAILY [facility] Last Admin: 04/13/16 10:24 Dose: Not Given Docusate Sodium (Colace -) 300 mg PO HS [facility] Last Admin: 04/12/16 21:29 Dose: Not Given Heparin Sodium (Porcine) (Heparin -) 5,000 unit SQ BID [facility] Last Admin: 04/13/16 10:20 Dose: 5,000 unit Piperacillin Sod/Tazobactam Sod (Zosyn 3.375gm Ivpb (Pre-Docked)) 50 mls @ 100 mls/hr IVPB Q8H-IV [facility] PRN Reason: Protocol Last Admin: 04/13/16 10:20 Dose: 100 mls/hr Potassium Chloride 20 meq/ (Dextrose/Sodium Chloride) 1,010 mls @ 40 mls/hr IVPB ASDIR [facility] Last Admin: 04/12/16 16:00 Dose: 40 mls/hr Amino Acids (Clinimix -) 1,000 mls @ 35 mls/hr IV Q24H [facility] Last Admin: 04/12/16 17:30 Dose: 35 mls/hr Potassium Chloride (Potassium Chloride 10 Meq Premix Ivpb -) 100 mls @ 100 mls/ hr IVPB Q60M [facility] Stop: 04/13/16 12:44 Mirtazapine (Remeron -) 15 mg PO [facility] Last Admin: 04/12/16 21:31 Dose: Not Given Nystatin (Nystatin Oral Suspension -) 500,000 units PO Q6HPO [facility] Last Admin: 04/13/16 05:52 Dose: Not Given Senna (Senna -) 2 tab PO [facility] Last Admin: 04/12/16 21:31 Dose: Not Given - Objective Vital Signs: Vital Signs Temperature 97.8 F 04/13/16 09:00 Pulse Rate 72 04/13/16 11:04 Respiratory Rate 20 04/13/16 09:00 Blood Pressure 136/70 04/13/16 09:00 O2 Sat by Pulse Oximetry (%) 97 04/13/16 11:04 Labs: CBC, BMP 04/13/16 06:35 04/13/16 06:35 INR, PTT INR 1.37 (0.82-1.09) H 04/10/16 05:10 Problem List - Problems (1) [place]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 (2) Hyperglycemia Code(s): R73.9 - HYPERGLYCEMIA, UNSPECIFIED (3) Hypernatremia Code(s): E87.0 - HYPEROSMOLALITY AND HYPERNATREMIA (4) Pneumonia Code(s): J18.9 - PNEUMONIA, UNSPECIFIED ORGANISM (5) Sepsis Code(s): A41.9 - SEPSIS, UNSPECIFIED ORGANISM Qualifiers: Sepsis type: sepsis due to unspecified organism Qualified Code(s): A41.9 - Sepsis, unspecified organism (6) Dysphagia Code(s): R13.10 - DYSPHAGIA, UNSPECIFIED (7) UTI (urinary tract infection) Code(s): N39.0 - URINARY TRACT INFECTION, SITE NOT SPECIFIED Qualifiers: Urinary tract infection type: site unspecified Hematuria presence: without hematuria Qualified Code(s): N39.0 - Urinary tract infection, site not specified (8) Acute respiratory distress Assessment/Plan: ADDENDUM : ACUTE RESP DISTRESS SLOWLY RESOLVING ON 02 VENTIMASK Code(s): J80 - ACUTE RESPIRATORY DISTRESS SYNDROME
--- NOTE | 2016-04-13 11:10 | PN ---
Progress Note (short form) - Note Progress Note: ADDENDUM: ACUTE RESPIRATORY DISTRESS RESOLVING ON 02 MASK/IV ABX/NEBS Problem List - Problems (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 (2) Hyperglycemia Code(s): R73.9 - HYPERGLYCEMIA, UNSPECIFIED (3) Hypernatremia Code(s): E87.0 - HYPEROSMOLALITY AND HYPERNATREMIA (4) Pneumonia Code(s): J18.9 - PNEUMONIA, UNSPECIFIED ORGANISM (5) Sepsis Code(s): A41.9 - SEPSIS, UNSPECIFIED ORGANISM Qualifiers: Sepsis type: sepsis due to unspecified organism Qualified Code(s): A41.9 - Sepsis, unspecified organism (6) Dysphagia Code(s): R13.10 - DYSPHAGIA, UNSPECIFIED (7) UTI (urinary tract infection) Code(s): N39.0 - URINARY TRACT INFECTION, SITE NOT SPECIFIED Qualifiers: Urinary tract infection type: site unspecified Hematuria presence: without hematuria Qualified Code(s): N39.0 - Urinary tract infection, site not specified (8) Acute respiratory distress Code(s): J80 - ACUTE RESPIRATORY DISTRESS SYNDROME
--- NOTE | 2016-04-13 11:39 | PN ---
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 Ortega to follow up, regarding swallowing function and consideration for PEG insertion. Pt is more alert, visually tracking now, unintelligible verbalizations. Confused. Good vocal quality. Pt with o2 tent, due to extraneous jaw movements, with best o2 delivery. Pt accepted PO trial of puree with no bilabial closure to strip puree off of the spoon and with inability to close mouth, form bolus or transfer bolus posteriorally. No swallow reflex elicited and pureed bolus removed from oral cavity. Mouth care provided. IMP: Continued high risk of aspiration, dehydration, malnutrition Continue NPO,mouthcare PEG insertion being considered.
[2016-04-13] MEDS: KCL 10 MEQ IVPB 100 ML IVPB SCH ×2 (12:00→14:31)
--- NOTE | 2016-04-13 13:44 | PN ---
Progress Note (short form) - Note Progress Note: more alert here Vital Signs Period Temp Pulse Resp BP Sys/Rae Pulse Ox Last 24 Hr 97.6 F-98.2 F 72-97 20-20 106-136/68-78 94-97 cor-rrr lungs scattered rhonchi abd soft,nt ext no edema CBC, BMP 04/13/16 06:35 04/13/16 06:35 Microbiology 04/09/16 00:50 Nasopharyngeal Swab Respiratory Virus Panel - Preliminary 04/08/16 16:30 Blood - Peripheral Venous Blood Culture - Preliminary NO GROWTH OBTAINED AFTER 96 HOURS, INCUBATION TO CONTINUE FOR 1 DAYS. 04/08/16 16:30 Blood - Peripheral Venous Blood Culture - Preliminary NO GROWTH OBTAINED AFTER 96 HOURS, INCUBATION TO CONTINUE FOR 1 DAYS. 04/08/16 16:48 Urine - Urine Hewitt Urine Culture - Final NO GROWTH OBTAINED 04/09/16 10:50 Urine For Antigen Detection Legionella Antigen - Final 04/09/16 10:50 Urine For Antigen Detection Streptococcus pneumoniae Antigen (M - Final 04/09/16 00:50 Nasopharyngeal Swab Influenza Types A,B Antigen (SELMA) - Final 04/09/16 00:50 Nasopharyngeal Swab - Final a/p aspiration pneumonia- day #5 zosyn to complete 7 days huntingtons' disease dementia electrolytes improved please call back if needed Problem List - Problems (1) Pneumonia Code(s): J18.9 - PNEUMONIA, UNSPECIFIED ORGANISM (2) Dehydration with hypernatremia Code(s): E87.0 - HYPEROSMOLALITY AND HYPERNATREMIA (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
[2016-04-13] MEDS ORDERED: DEXTROSE 5%-NORMAL SALINE 1,000 ML with POTASSIUM CHLORIDE 40 MEQ IVPB SCH (15:35)
--- NOTE | 2016-04-13 15:35 | PN ---
Progress Note, Physician History of Present Illness: Pt seen and examined at bedside. She is awake however does not respond to verbal commands. - Current Medication List Current Medications: Active Medications Acetaminophen (Tylenol -) 650 mg PO Q4H PRN PRN Reason: FEVER OR PAIN Amantadine HCl (Symmetrel -) 100 mg PO DAILY [facility] Last Admin: 04/13/16 10:20 Dose: Not Given Artificial Tears (Artificial Tears) 1 drop OU DAILY [facility] Last Admin: 04/13/16 10:24 Dose: Not Given Docusate Sodium (Colace -) 300 mg PO HS [facility] Last Admin: 04/12/16 21:29 Dose: Not Given Heparin Sodium (Porcine) (Heparin -) 5,000 unit SQ BID [facility] Last Admin: 04/13/16 10:20 Dose: 5,000 unit Piperacillin Sod/Tazobactam Sod (Zosyn 3.375gm Ivpb (Pre-Docked)) 50 mls @ 100 mls/hr IVPB Q8H-IV MATHEW PRN Reason: Protocol Stop: 04/16/16 09:00 Last Admin: 04/13/16 10:20 Dose: 100 mls/hr Potassium Chloride 20 meq/ (Dextrose/Sodium Chloride) 1,010 mls @ 40 mls/hr IVPB ASDIR [facility] Last Admin: 04/12/16 16:00 Dose: 40 mls/hr Amino Acids (Clinimix -) 1,000 mls @ 35 mls/hr IV Q24H [facility] Last Admin: 04/12/16 17:30 Dose: 35 mls/hr Mirtazapine (Remeron -) 15 mg PO [facility] Last Admin: 04/12/16 21:31 Dose: Not Given Nystatin (Nystatin Oral Suspension -) 500,000 units PO Q6HPO [facility] Last Admin: 04/13/16 13:07 Dose: 500,000 units Senna (Senna -) 2 tab PO [facility] Last Admin: 04/12/16 21:31 Dose: Not Given - Objective Vital Signs: Vital Signs Temperature 97.3 F L 04/13/16 14:15 Pulse Rate 89 04/13/16 14:15 Respiratory Rate 20 04/13/16 14:15 Blood Pressure 147/79 04/13/16 14:15 O2 Sat by Pulse Oximetry (%) 97 03/03/17 11:04 Constitutional: Yes: Calm Eyes: Yes: Conjunctiva Clear Cardiovascular: Yes: S1, S2 Respiratory: Yes: CTA Bilaterally Gastrointestinal: Yes: Normal Bowel Sounds, Soft Genitourinary: Yes: Incontinence Musculoskeletal: Yes: Muscle Weakness Edema: Yes Edema: LLE: Trace, RLE: Trace Neurological: Yes: Pre-Existing Deficit Labs: CBC, BMP 04/13/16 06:35 04/13/16 06:35 INR, PTT INR 1.37 (0.82-1.09) H 04/10/16 05:10 Problem List - Problems (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 (2) Hypernatremia Code(s): E87.0 - HYPEROSMOLALITY AND HYPERNATREMIA (3) Hypokalemia Code(s): E87.6 - HYPOKALEMIA (4) Sepsis Code(s): A41.9 - SEPSIS, UNSPECIFIED ORGANISM Qualifiers: Sepsis type: sepsis due to unspecified organism Qualified Code(s): A41.9 - Sepsis, unspecified organism (5) UTI (urinary tract infection) Code(s): N39.0 - URINARY TRACT INFECTION, SITE NOT SPECIFIED Qualifiers: Urinary tract infection type: site unspecified Hematuria presence: without hematuria Qualified Code(s): N39.0 - Urinary tract infection, site not specified Assessment/Plan Current Medications Generic Name Dose Route Start Last Admin Trade Name Freq PRN Reason Stop Dose Admin Acetaminophen 650 mg 04/10/16 15:56 Tylenol - PO Q4H PRN FEVER OR PAIN Amantadine HCl 100 mg 04/11/16 10:00 04/13/16 10:20 Symmetrel - PO Not Given DAILY MATHEW Artificial Tears 1 drop 04/11/16 10:00 04/13/16 10:24 Artificial Tears OU Not Given DAILY MATHEW Docusate Sodium 300 mg 04/10/16 22:00 04/12/16 21:29 Colace - PO Not Given HS MATHEW Heparin Sodium (Porcine) 5,000 unit 04/10/16 22:00 04/13/16 10:20 Heparin - SQ 5,000 unit BID MATHEW Administration Piperacillin Sod/Tazobactam Sod 50 mls @ 100 mls/hr 04/10/16 18:00 04/13/16 10: 20 Zosyn 3.375gm Ivpb (Pre-Docked) IVPB 04/16/16 09:00 100 mls/hr Q8H-IV MATHEW Administration Protocol Potassium Chloride 20 meq/ 1,010 mls @ 40 mls/hr 04/12/16 14:58 04/12/16 16:00 Dextrose/Sodium Chloride IVPB 40 mls/hr ASDIR MATHEW Administration Amino Acids 1,000 mls @ 35 mls/hr 04/12/16 15:00 04/12/16 17:30 Clinimix - IV 35 mls/hr Q24H MATHEW Administration Mirtazapine 15 mg 04/10/16 22:00 04/12/16 21:31 Remeron - PO Not Given HS MATHEW Nystatin 500,000 units 04/10/16 18:00 04/13/16 13:07 Nystatin Oral Suspension - PO 500,000 units Q6HPO [facility] Administration Senna 2 tab 04/10/16 22:00 04/12/16 21:31 Senna - PO Not Given HS MATHEW Laboratory Tests 04/13/16 06:35 Potassium 3.2 L Phosphorus 2.5 D Magnesium 2.2 Impression 1. Hypernatremia 2. hypokalemia 3. Rogers's disease 4. depression 5. sepsis 6. UTI 7. rhabdo 8. malnutrition Plan - will increase rate of clinimix - cont with fluids - repeat labs in am - sodium is improving - replace potassium - repeat labs in am - will follow patient - consider placing NG tube and starting feeds - renal function is stabilizing - cont abx - follow cultures, no growth to date Dr Lord
[2016-04-13] MEDS ORDERED: SODIUM CHLORIDE 0.45% 1,000 ML with POTASSIUM CHLORIDE 40 MEQ IVPB SCH ×2 (15:45→16:15)
--- NOTE | 2016-04-13 16:44 | PN ---
GI Progress Note Subjective: chart reviewed more responsive,appeently patient more alert baseline in the retirement - Objective Vital Signs: Vital Signs Temperature 97.3 F L 04/13/16 14:15 Pulse Rate 89 04/13/16 14:15 Respiratory Rate 20 04/13/16 14:15 Blood Pressure 147/79 04/13/16 14:15 O2 Sat by Pulse Oximetry (%) 97 04/13/16 11:04 Constitutional: Well Nourished Eyes: Yes: Conjunctiva Clear Neck: Yes: Supple Cardiovascular: Yes: Regular Rate and Rhythm Respiratory: Yes: CTA Bilaterally ...Palpate: Yes: Soft. No: Firm/Rigid, Guarding, Hepatomegaly, Pulsatile Mass, Splenomegaly, Tenderness Labs: CBC, BMP 04/13/16 06:35 04/13/16 06:35 INR, PTT INR 1.37 (0.82-1.09) H 04/10/16 05:10 Problem List - Problems (1) Dysphagia Assessment/Plan: r. will schedule for PEG insertion Saturday continue antibiotics consider neurology consult Code(s): R13.10 - DYSPHAGIA, UNSPECIFIED
[2016-04-13] MEDS: AMINO ACIDS 4.25%/D5W 1,000 ML IV SCH ×2 (21:59→22:44)
[2016-04-13] MEDS: DEXTROSE 5%-NORMAL SALINE 1,000 ML with POTASSIUM CHLORIDE 20 MEQ IVPB SCH (21:59)
[2016-04-13] MEDS: SENNOSIDES 8.6MG TABLET (FP) PO SCH (22:05)
[2016-04-13] MEDS: MIRTAZAPINE 15 MG TABLET (FP) PO SCH (22:05)
[2016-04-13] MEDS: DOCUSATE SODIUM 100 MG CAPSULE (FP) PO SCH (22:05)
[2016-04-14] MEDS: NYSTATIN 500,000 UNITS/5 ML SUSPENSION PO SCH ×5 (00:10→23:17)
[2016-04-14] MEDS: PIPERACILLIN/TAZOB 3.375 GM 50 ML IVPB SCH ×3 (04:34→19:07)
[2016-04-14] MEDS: AMINO ACIDS 4.25%/D5W 1,000 ML IV SCH ×2 (05:15→21:17)
[2016-04-14 09:51] LABS: ALK PHOS 82 U/L (45-117); ANION GAP 8 (8-16); BILIRUBIN,TOTAL 0.5 mg/dL (0.2-1.0); CALCIUM 7.8 mg/dL (8.5-10.1); CO2 29 mmol/L (21-32); CREATININE 0.5 mg/dL (0.55-1.02); GLUCOSE,RANDOM 115 mg/dL (74-106); MAGNESIUM 2.2 mg/dL (1.8-2.4); PHOSPHOROUS 1.8 mg/dL (2.5-4.9); SGOT/AST 31 U/L (15-37); SGPT/ALT 34 U/L (12-78); TOT PROT 5.3 g/dl (6.4-8.2)
[2016-04-14] MEDS: HEPARIN NA (PORCINE) 5,000 UNITS/ML 1ML VIAL SQ SCH ×2 (10:00→21:00)
[2016-04-14] MEDS ORDERED: MAGNESIUM SULF 50% (8.12 MEQ/2 ML-1 GM VIAL) IVPB ONE ×2 (10:09→14:00)
--- NOTE | 2016-04-14 10:14 | PN ---
Progress Note, Physician Chief Complaint: AWAKE 02 MASK SCHEDULED FOR PEG PLACEMENT SaturdayApril - Current Medication List Current Medications: Active Medications Acetaminophen (Tylenol -) 650 mg PO Q4H PRN PRN Reason: FEVER OR PAIN Amantadine HCl (Symmetrel -) 100 mg PO DAILY [facility] Last Admin: 04/13/16 10:20 Dose: Not Given Artificial Tears (Artificial Tears) 1 drop OU DAILY [facility] Last Admin: 04/13/16 10:24 Dose: Not Given Docusate Sodium (Colace -) 300 mg PO HS [facility] Last Admin: 04/13/16 22:05 Dose: Not Given Heparin Sodium (Porcine) (Heparin -) 5,000 unit SQ BID [facility] Last Admin: 04/13/16 22:51 Dose: 5,000 unit Piperacillin Sod/Tazobactam Sod (Zosyn 3.375gm Ivpb (Pre-Docked)) 50 mls @ 100 mls/hr IVPB Q8H-IV MATHEW PRN Reason: Protocol Stop: 04/16/16 09:00 Last Admin: 04/14/16 04:34 Dose: 100 mls/hr Amino Acids (Clinimix -) 1,000 mls @ 45 mls/hr IV Q24H [facility] Last Admin: 04/14/16 05:15 Dose: 45 mls/hr Potassium Chloride 40 meq/ (Sodium Chloride) 1,020 mls @ 35 mls/hr IVPB ASDIR [facility] Stop: 04/14/16 16:14 Last Admin: 04/13/16 22:51 Dose: 35 mls/hr Potassium Chloride (Potassium Chloride 10 Meq Premix Ivpb -) 100 mls @ 100 mls/ hr IVPB Q60M [facility] Stop: 04/14/16 13:14 Magnesium Sulfate (Magnesium Sulfate) 1 gm IVPB ONCE ONE Stop: 04/14/16 10:10 Mirtazapine (Remeron -) 15 mg PO [facility] Last Admin: 04/13/16 22:05 Dose: Not Given Nystatin (Nystatin Oral Suspension -) 500,000 units PO Q6HPO [facility] Last Admin: 04/14/16 07:05 Dose: Not Given Senna (Senna -) 2 tab PO [facility] Last Admin: 04/13/16 22:05 Dose: Not Given - Objective Vital Signs: Vital Signs Temperature 97.1 F L 04/14/16 06:00 Pulse Rate 88 04/14/16 06:00 Respiratory Rate 20 04/14/16 06:00 Blood Pressure 127/60 04/14/16 06:00 O2 Sat by Pulse Oximetry (%) 97 04/13/16 21:00 Constitutional: Yes: Mild Distress Eyes: Yes: WNL HENT: Yes: WNL Neck: Yes: WNL Cardiovascular: Yes: WNL Respiratory: Yes: On Venti-Mask Gastrointestinal: Yes: WNL Genitourinary: Yes: Incontinence Musculoskeletal: Yes: Muscle Weakness Extremities: Yes: Deformity, Other Edema: No Peripheral Pulses WNL: Yes Integumentary: Yes: WNL Wound/Incision: Yes: Clean/Dry Neurological: Yes: Pre-Existing Deficit, Unsteady Gait ...Motor Strength: LUE, LLE, RUE, RLE Psychiatric: Yes: Other Labs: CBC, BMP 04/13/16 06:35 04/14/16 08:42 INR, PTT INR 1.37 (0.82-1.09) H 04/10/16 05:10 Problem List - Problems (1) [place]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 (2) Hyperglycemia Code(s): R73.9 - HYPERGLYCEMIA, UNSPECIFIED (3) Hypernatremia Code(s): E87.0 - HYPEROSMOLALITY AND HYPERNATREMIA (4) Pneumonia Code(s): J18.9 - PNEUMONIA, UNSPECIFIED ORGANISM (5) Sepsis Code(s): A41.9 - SEPSIS, UNSPECIFIED ORGANISM Qualifiers: Sepsis type: sepsis due to unspecified organism Qualified Code(s): A41.9 - Sepsis, unspecified organism (6) Dysphagia Code(s): R13.10 - DYSPHAGIA, UNSPECIFIED (7) UTI (urinary tract infection) Code(s): N39.0 - URINARY TRACT INFECTION, SITE NOT SPECIFIED Qualifiers: Urinary tract infection type: site unspecified Hematuria presence: without hematuria Qualified Code(s): N39.0 - Urinary tract infection, site not specified (8) Acute respiratory distress Code(s): J80 - ACUTE RESPIRATORY DISTRESS SYNDROME Assessment/Plan DISCUSSED WITH PIPER CABALLERO, PEG LIKELY NEEDED WITH DETERIORATION OF THE ABILITY TO SWALLOW OVER THE LAST SEVERAL MONTHS. PHONE CALL TO DR CORBIN , I AM MEDICALLY CLEARING THE PATIENT FOR PEG PLACEMENT THE BENEFIT OUTWEIGHS THE RISK AT THIS TIME. FAMILY TO DECIDE AND SIGN CONSENT. IV ABX CONTINUED PNA/UTI FOR 2 MORE DAYS STOP ON April PEG FOR SATURDAY WITH DR CORBIN April REPLETE KCL, RENAL F/U
--- NOTE | 2016-04-14 11:42 | PN ---
Progress Note (short form) - Note Progress Note: No acute events overnight. NAD. Afebrile. Intake & Output 04/11/16 04/12/16 04/13/16 04/14/16 23:59 23:59 23:59 23:59 Intake Total 1150 950 800 Output Total 300 Balance 850 950 800 Weight 117 lb 116 lb 6 oz 115 lb Last Vital Signs Temp Pulse Resp BP Pulse Ox 97.1 F L 88 20 127/60 97 04/14/16 06:00 04/14/16 06:00 04/14/16 06:00 04/14/16 06:00 04/13/16 21:00 Active Medications Acetaminophen (Tylenol -) 650 mg PO Q4H PRN PRN Reason: FEVER OR PAIN Amantadine HCl (Symmetrel -) 100 mg PO DAILY [facility] Last Admin: 04/13/16 10:20 Dose: Not Given Artificial Tears (Artificial Tears) 1 drop OU DAILY [facility] Last Admin: 04/13/16 10:24 Dose: Not Given Docusate Sodium (Colace -) 300 mg PO HS [facility] Last Admin: 04/13/16 22:05 Dose: Not Given Heparin Sodium (Porcine) (Heparin -) 5,000 unit SQ BID [facility] Last Admin: 04/13/16 22:51 Dose: 5,000 unit Piperacillin Sod/Tazobactam Sod (Zosyn 3.375gm Ivpb (Pre-Docked)) 50 mls @ 100 mls/hr IVPB Q8H-IV MATHEW PRN Reason: Protocol Stop: 04/16/16 09:00 Last Admin: 04/14/16 04:34 Dose: 100 mls/hr Amino Acids (Clinimix -) 1,000 mls @ 45 mls/hr IV Q24H [facility] Last Admin: 04/14/16 05:15 Dose: 45 mls/hr Potassium Chloride 40 meq/ (Sodium Chloride) 1,020 mls @ 35 mls/hr IVPB ASDIR [facility] Stop: 04/14/16 16:14 Last Admin: 04/13/16 22:51 Dose: 35 mls/hr Potassium Chloride (Potassium Chloride 10 Meq Premix Ivpb -) 100 mls @ 100 mls/ hr IVPB Q60M [facility] Stop: 04/14/16 13:14 Mirtazapine (Remeron -) 15 mg PO HS [facility] Last Admin: 04/13/16 22:05 Dose: Not Given Nystatin (Nystatin Oral Suspension -) 500,000 units PO Q6HPO [facility] Last Admin: 04/14/16 07:05 Dose: Not Given Senna (Senna -) 2 tab PO [facility] Last Admin: 04/13/16 22:05 Dose: Not Given Constitutional: Yes: Awake, NAD Eyes: Yes: PERRL HENT: Yes: (-) Pallor Neck: Yes: WNL Cardiovascular: Yes: S1, S2 Respiratory: Yes: Diminished at the bases, few basilar rhonchi Gastrointestinal: Yes: Normal Bowel Sounds ...Rectal Exam: Yes: Deferred Renal/: Yes: Hewitt Present (yellow output) Extremities: Yes: Cool, Other (contraction) Edema: Yes Edema: LLE: Trace, RLE: Trace Peripheral Pulses WNL: Yes (+2 bilateral pedal pulses) Integumentary: Yes: Tenting Psychiatric: Yes: Alert. No: Oriented Labs: Laboratory Results - last 24 hr 04/14/16 08:42 Sodium 144 Potassium 3.1 L Chloride 107 Carbon Dioxide 29 Anion Gap 8 BUN 11 D Creatinine 0.5 L Creat Clearance w eGFR > 60 Random Glucose 115 H Calcium 7.8 L Phosphorus 1.8 L D Magnesium 2.2 Total Bilirubin 0.5 AST 31 ALT 34 Alkaline Phosphatase 82 Total Protein 5.3 L Albumin 2.0 L Assessment/Plan Sepsis likely due to UTI Suspected Aspiration PNA Advanced Shawanda's and Parkinson's disease Severe hypernatremia Rhabdomyolysis PLAN: ABX per ID I&O O2 to maintain saturation Aspiration precautions Dr Morgan
--- NOTE | 2016-04-14 11:54 | PN ---
Progress Note (short form) - Note Progress Note: RENAL Pt appears comfortable not able to give a history Last Vital Signs Temp Pulse Resp BP Pulse Ox 97.1 F L 88 20 127/60 97 04/14/16 06:00 04/14/16 06:00 04/14/16 06:00 04/14/16 06:00 04/13/16 21:00 lungs clear cvs s1s2 rr abd soft ext trace edema, foot drop neuro aphasic CBC, BMP 04/13/16 06:35 04/14/16 08:42 Current Medications Generic Name Dose Route Start Last Admin Trade Name Freq PRN Reason Stop Dose Admin Acetaminophen 650 mg 04/10/16 15:56 Tylenol - PO Q4H PRN FEVER OR PAIN Amantadine HCl 100 mg 04/11/16 10:00 04/13/16 10:20 Symmetrel - PO Not Given DAILY MATHEW Artificial Tears 1 drop 04/11/16 10:00 04/13/16 10:24 Artificial Tears OU Not Given DAILY MATHEW Docusate Sodium 300 mg 04/10/16 22:00 04/13/16 22:05 Colace - PO Not Given HS MATHEW Heparin Sodium (Porcine) 5,000 unit 04/10/16 22:00 04/13/16 22:51 Heparin - SQ 5,000 unit BID MATHEW Administration Piperacillin Sod/Tazobactam Sod 50 mls @ 100 mls/hr 04/10/16 18:00 04/14/16 04: 34 Zosyn 3.375gm Ivpb (Pre-Docked) IVPB 04/16/16 09:00 100 mls/hr Q8H-IV MATHEW Administration Protocol Amino Acids 1,000 mls @ 45 mls/hr 04/13/16 15:35 04/14/16 05:15 Clinimix - IV 45 mls/hr Q24H MAT[facility]W Administration Potassium Chloride 40 meq/ 1,020 mls @ 35 mls/hr 04/13/16 16:15 04/13/16 22:51 Sodium Chloride IVPB 04/14/16 16:14 35 mls/hr ASDIR [facility]W Administration Potassium Chloride 100 mls @ 100 mls/hr 04/14/16 10:15 Potassium Chloride 10 Meq Premix Ivpb - IVPB 04/14/16 13:14 Q60M MAT[facility]W Mirtazapine 15 mg 04/10/16 22:00 03/03/17 22:05 Remeron - PO Not Given HS MATHEW Nystatin 500,000 units 04/10/16 18:00 04/14/16 07:05 Nystatin Oral Suspension - PO Not Given Q6HPO MATHEW Senna 2 tab 04/10/16 22:00 04/13/16 22:05 Senna - PO Not Given HS MATHEW Impression 1. Hypernatremia 2. hypokalemia can be [id number] by piperacillin 3. [place]'s disease 4. depression 5. sepsis 6. UTI 7. rhabdo 8. malnutrition Plan - will increase rate of clinimix - dc fluids -monitor lft's -replace k MV
[2016-04-14] MEDS: KCL 10 MEQ IVPB 100 ML IVPB SCH ×3 (14:45→19:06)
[2016-04-14] MEDS: ARTIFICIAL TEARS (POLYVINYL ALCOHOL 1.4%) OPTH DROPS OU SCH (15:12)
[2016-04-14] MEDS: AMANTADINE HCL 100 MG TABLET PO SCH (15:24)
[2016-04-14] MEDS: DOCUSATE SODIUM 100 MG CAPSULE (FP) PO SCH (21:18)
[2016-04-14] MEDS: MIRTAZAPINE 15 MG TABLET (FP) PO SCH (21:18)
[2016-04-14] MEDS: SENNOSIDES 8.6MG TABLET (FP) PO SCH (21:18)
[2016-04-15] MEDS: PIPERACILLIN/TAZOB 3.375 GM 50 ML IVPB SCH ×3 (01:10→19:06)
[2016-04-15] MEDS: AMINO ACIDS 4.25%/D5W 1,000 ML IV SCH ×2 (01:10→18:35)
[2016-04-15] MEDS: NYSTATIN 500,000 UNITS/5 ML SUSPENSION PO SCH ×2 (05:26→19:06)
[2016-04-15 08:31] LABS: CALCIUM 7.3 mg/dL (8.5-10.1); CREATININE 0.4 mg/dL (0.55-1.02); MAGNESIUM 2.3 mg/dL (1.8-2.4); PHOSPHOROUS 1.7 mg/dL (2.5-4.9)
[2016-04-15] MEDS: ARTIFICIAL TEARS (POLYVINYL ALCOHOL 1.4%) OPTH DROPS OU SCH (10:34)
[2016-04-15] MEDS: HEPARIN NA (PORCINE) 5,000 UNITS/ML 1ML VIAL SQ SCH ×2 (10:34→21:25)
[2016-04-15] MEDS: AMANTADINE HCL 100 MG TABLET PO SCH (10:34)
--- NOTE | 2016-04-15 11:13 | PN ---
Progress Note (short form) - Note Progress Note: No acute events overnight. NAD on face tent. Afebrile. Intake & Output 04/12/16 04/13/16 04/14/16 04/15/16 23:59 23:59 23:59 23:59 Intake Total 950 800 200 750 Balance 950 800 200 750 Weight 116 lb 6 oz 115 lb 110 lb 4 oz Last Vital Signs Temp Pulse Resp BP Pulse Ox 97.5 F L 75 20 111/83 95 04/15/16 06:00 04/15/16 06:00 04/15/16 06:00 04/15/16 06:00 04/14/16 20:35 Active Medications Acetaminophen (Tylenol -) 650 mg PO Q4H PRN PRN Reason: FEVER OR PAIN Amantadine HCl (Symmetrel -) 100 mg PO DAILY [facility] Last Admin: 04/15/16 10:34 Dose: Not Given Artificial Tears (Artificial Tears) 1 drop OU DAILY [facility] Last Admin: 04/15/16 10:34 Dose: 1 drop Docusate Sodium (Colace -) 300 mg PO [facility] Last Admin: 04/14/16 21:18 Dose: Not Given Heparin Sodium (Porcine) (Heparin -) 5,000 unit SQ BID [facility] Last Admin: 04/15/16 10:34 Dose: 5,000 unit Piperacillin Sod/Tazobactam Sod (Zosyn 3.375gm Ivpb (Pre-Docked)) 50 mls @ 100 mls/hr IVPB Q8H-IV MATHEW PRN Reason: Protocol Stop: 04/16/16 09:00 Last Admin: 04/15/16 10:35 Dose: 100 mls/hr Amino Acids (Clinimix -) 1,000 mls @ 70 mls/hr IV Q14H [facility] Last Admin: 04/15/16 01:10 Dose: 70 mls/hr Potassium Chloride (Potassium Chloride 10 Meq Premix Ivpb -) 100 mls @ 100 mls/ hr IVPB Q60M [facility] Stop: 04/15/16 13:59 Mirtazapine (Remeron -) 15 mg PO HS [facility] Last Admin: 04/14/16 21:18 Dose: Not Given Nystatin (Nystatin Oral Suspension -) 500,000 units PO Q6HPO [facility] Last Admin: 04/15/16 05:26 Dose: Not Given Senna (Senna -) 2 tab PO HS [facility] Last Admin: 04/14/16 21:18 Dose: Not Given Constitutional: Yes: Awake, NAD Eyes: Yes: PERRL HENT: Yes: (-) Pallor Neck: Yes: WNL Cardiovascular: Yes: S1, S2 Respiratory: Yes: Diminished at the bases, few basilar rhonchi Gastrointestinal: Yes: Normal Bowel Sounds ...Rectal Exam: Yes: Deferred Renal/: Yes: Hewitt Present (yellow output) Extremities: Yes: Cool, Other (contraction) Edema: Yes Edema: LLE: Trace, RLE: Trace Peripheral Pulses WNL: Yes (+2 bilateral pedal pulses) Integumentary: Yes: Tenting Psychiatric: Yes: Alert. No: Oriented Labs: Laboratory Results - last 24 hr 04/15/16 07:45 Sodium 142 Potassium 3.0 L Chloride 106 Carbon Dioxide 29 Anion Gap 7 L BUN 16 D Creatinine 0.4 L Random Glucose 132 H Calcium 7.3 L Phosphorus 1.7 L Magnesium 2.3 Assessment/Plan Sepsis likely due to UTI Suspected Aspiration PNA Advanced [place]'s and Parkinson's disease Severe hypernatremia Rhabdomyolysis PLAN: ABX per ID O2 to maintain saturation Aspiration precautions Dr Morgan
[2016-04-15] MEDS ORDERED: KCL 10 MEQ IVPB 100 ML IVPB SCH (11:15)
--- NOTE | 2016-04-15 13:13 | PN ---
Progress Note, Physician Chief Complaint: MEDICALLY CLEARED FOR G-TUBE PLACEMENT SATURDAY DISCUSSED WITH GI DR CORBIN TO PERFORM PEG SaturdayApril. - Current Medication List Current Medications: Active Medications Acetaminophen (Tylenol -) 650 mg PO Q4H PRN PRN Reason: FEVER OR PAIN Amantadine HCl (Symmetrel -) 100 mg PO DAILY [facility] Last Admin: 04/15/16 10:34 Dose: Not Given Artificial Tears (Artificial Tears) 1 drop OU DAILY [facility] Last Admin: 04/15/16 10:34 Dose: 1 drop Docusate Sodium (Colace -) 300 mg PO HS [facility] Last Admin: 04/14/16 21:18 Dose: Not Given Heparin Sodium (Porcine) (Heparin -) 5,000 unit SQ BID [facility] Last Admin: 04/15/16 10:34 Dose: 5,000 unit Piperacillin Sod/Tazobactam Sod (Zosyn 3.375gm Ivpb (Pre-Docked)) 50 mls @ 100 mls/hr IVPB Q8H-IV [facility]W PRN Reason: Protocol Stop: 04/16/16 09:00 Last Admin: 04/15/16 10:35 Dose: 100 mls/hr Amino Acids (Clinimix -) 1,000 mls @ 70 mls/hr IV Q14H [facility] Last Admin: 04/15/16 01:10 Dose: 70 mls/hr Potassium Chloride (Potassium Chloride 10 Meq Premix Ivpb -) 100 mls @ 100 mls/ hr IVPB Q60M [facility] Stop: 04/15/16 14:14 Mirtazapine (Remeron -) 15 mg PO [facility] Last Admin: 04/14/16 21:18 Dose: Not Given Nystatin (Nystatin Oral Suspension -) 500,000 units PO Q6HPO [facility] Last Admin: 04/15/16 05:26 Dose: Not Given Senna (Senna -) 2 tab PO [facility] Last Admin: 04/14/16 21:18 Dose: Not Given - Objective Vital Signs: Vital Signs Temperature 97.5 F L 04/15/16 06:00 Pulse Rate 75 04/15/16 06:00 Respiratory Rate 20 04/15/16 06:00 Blood Pressure 111/83 04/15/16 06:00 O2 Sat by Pulse Oximetry (%) 95 04/14/16 20:35 Constitutional: Yes: Mild Distress Eyes: Yes: WNL HENT: Yes: WNL Neck: Yes: WNL Cardiovascular: Yes: WNL Respiratory: Yes: On Venti-Mask Gastrointestinal: Yes: WNL Musculoskeletal: Yes: Joint Stiffness, Muscle Weakness Extremities: Yes: Deformity Edema: Yes Edema: LLE: Trace, RLE: Trace Peripheral Pulses WNL: Yes Integumentary: Yes: Rash Wound/Incision: Yes: Open to air Neurological: Yes: Pre-Existing Deficit, Weakness ...Motor Strength: LUE, LLE, RUE, RLE Psychiatric: Yes: Other Labs: CBC, BMP 04/13/16 06:35 04/15/16 07:45 INR, PTT INR 1.37 (0.82-1.09) H 04/10/16 05:10 Problem List - Problems (1) [place]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 (2) Hyperglycemia Code(s): R73.9 - HYPERGLYCEMIA, UNSPECIFIED (3) Hypernatremia Code(s): E87.0 - HYPEROSMOLALITY AND HYPERNATREMIA (4) Pneumonia Code(s): J18.9 - PNEUMONIA, UNSPECIFIED ORGANISM (5) Sepsis Code(s): A41.9 - SEPSIS, UNSPECIFIED ORGANISM Qualifiers: Qualified Code(s): A41.9 - Sepsis, unspecified organism (6) Dysphagia Code(s): R13.10 - DYSPHAGIA, UNSPECIFIED (7) UTI (urinary tract infection) Code(s): N39.0 - URINARY TRACT INFECTION, SITE NOT SPECIFIED Qualifiers: Qualified Code(s): N39.0 - Urinary tract infection, site not specified (8) Acute respiratory distress Code(s): J80 - ACUTE RESPIRATORY DISTRESS SYNDROME Assessment/Plan DISCUSSED WITH IPPER CABALLERO, PEG LIKELY NEEDED WITH DETERIORATION OF THE ABILITY TO SWALLOW OVER THE LAST SEVERAL MONTHS. PHONE CALL TO DR CORBIN , I AM MEDICALLY CLEARING THE PATIENT FOR PEG PLACEMENT THE BENEFIT OUTWEIGHS THE RISK AT THIS TIME. FAMILY TO DECIDE AND SIGN CONSENT. IV ABX CONTINUED PNA/UTI FOR 2 MORE DAYS STOP ON April PEG FOR SATURDAY WITH DR CORBIN April REPLETE KCL, RENAL F/U
--- NOTE | 2016-04-15 13:15 | PN ---
Progress Note (short form) - Note Progress Note: RENAL Pt appears comfortable not able to give a history Last Vital Signs Temp Pulse Resp BP Pulse Ox 97.5 F L 75 20 111/83 95 04/15/16 06:00 04/15/16 06:00 04/15/16 06:00 04/15/16 06:00 04/14/16 20:35 lungs clear cvs s1s2 rr abd soft ext trace edema, foot drop neuro aphasic CBC, BMP 04/13/16 06:35 04/15/16 07:45 Laboratory Last Values Current Medications Generic Name Dose Route Start Last Admin Trade Name Freq PRN Reason Stop Dose Admin Acetaminophen 650 mg 04/10/16 15:56 Tylenol - PO Q4H PRN FEVER OR PAIN Amantadine HCl 100 mg 04/11/16 10:00 04/15/16 10:34 Symmetrel - PO Not Given DAILY MATHEW Artificial Tears 1 drop 04/11/16 10:00 04/15/16 10:34 Artificial Tears OU 1 drop DAILY MATHEW Administration Docusate Sodium 300 mg 04/10/16 22:00 04/14/16 21:18 Colace - PO Not Given HS MATHEW Heparin Sodium (Porcine) 5,000 unit 04/10/16 22:00 04/15/16 10:34 Heparin - SQ 5,000 unit BID MATHEW Administration Piperacillin Sod/Tazobactam Sod 50 mls @ 100 mls/hr 04/10/16 18:00 04/15/16 10: 35 Zosyn 3.375gm Ivpb (Pre-Docked) IVPB 04/16/16 09:00 100 mls/hr Q8H-IV MATHEW Administration Protocol Amino Acids 1,000 mls @ 70 mls/hr 04/14/16 11:57 04/15/16 01:10 Clinimix - IV 70 mls/hr Q14H MATHEW Administration Potassium Chloride 100 mls @ 100 mls/hr 04/15/16 11:15 Potassium Chloride 10 Meq Premix Ivpb - IVPB 04/15/16 14:14 Q60M MATHEW Mirtazapine 15 mg 04/10/16 22:00 04/14/16 21:18 Remeron - PO Not Given HS MATHEW Nystatin 500,000 units 04/10/16 18:00 04/15/16 05:26 Nystatin Oral Suspension - PO Not Given Q6HPO MATHEW Senna 2 tab 04/10/16 22:00 04/14/16 21:18 Senna - PO Not Given HS MATHEW Impression 1. Hypernatremia 2. hypokalemia can be [id number] by piperacillin 3. [place]'s disease 4. depression 5. sepsis 6. UTI 7. rhabdo 8. malnutrition Plan - add kphos - dc fluids -monitor lft's -replace k MV
[2016-04-15] MEDS ORDERED: POTASSIUM PHOSPHATE 15 MM in DEXTROSE 5%-WATER - 250 ML IVPB ONE (13:30)
[2016-04-15] MEDS: KCL 10 MEQ IVPB 100 ML IVPB SCH ×3 (18:39→21:25)
[2016-04-15] MEDS: DOCUSATE SODIUM 100 MG CAPSULE (FP) PO SCH (21:25)
[2016-04-15] MEDS: MIRTAZAPINE 15 MG TABLET (FP) PO SCH (21:25)
[2016-04-15] MEDS: SENNOSIDES 8.6MG TABLET (FP) PO SCH (21:25)
[2016-04-16] MEDS: PIPERACILLIN/TAZOB 3.375 GM 50 ML IVPB SCH (02:50)
[2016-04-16] MEDS: NYSTATIN 500,000 UNITS/5 ML SUSPENSION PO SCH ×5 (02:51→18:51)
[2016-04-16] MEDS: AMINO ACIDS 4.25%/D5W 1,000 ML IV SCH ×3 (05:53→18:51)
[2016-04-16] MEDS ORDERED: PT OWN MED DRAWER 7, Y5N ONE (07:04)
[2016-04-16 08:26] LABS: CALCIUM 7.6 mg/dL (8.5-10.1); CREATININE 0.4 mg/dL (0.55-1.02); MAGNESIUM 2.2 mg/dL (1.8-2.4); PHOSPHOROUS 1.9 mg/dL (2.5-4.9)
[2016-04-16] MEDS: AMANTADINE HCL 100 MG TABLET PO SCH (11:31)
[2016-04-16] MEDS: ARTIFICIAL TEARS (POLYVINYL ALCOHOL 1.4%) OPTH DROPS OU SCH (11:33)
[2016-04-16] MEDS: HEPARIN NA (PORCINE) 5,000 UNITS/ML 1ML VIAL SQ SCH ×2 (11:33→22:18)
--- NOTE | 2016-04-16 13:30 | PN ---
Progress Note, Physician History of Present Illness: Pt seen and examined at bedside. She is awake but not interactive. - Current Medication List Current Medications: Active Medications Acetaminophen (Tylenol -) 650 mg PO Q4H PRN PRN Reason: FEVER OR PAIN Amantadine HCl (Symmetrel -) 100 mg PO DAILY [facility] Last Admin: 04/16/16 11:31 Dose: Not Given Artificial Tears (Artificial Tears) 1 drop OU DAILY [facility] Last Admin: 04/16/16 11:33 Dose: 1 drop Docusate Sodium (Colace -) 300 mg PO HS [facility] Last Admin: 04/15/16 21:25 Dose: Not Given Heparin Sodium (Porcine) (Heparin -) 5,000 unit SQ BID [facility] Last Admin: 04/16/16 11:33 Dose: 5,000 unit Amino Acids (Clinimix -) 1,000 mls @ 70 mls/hr IV Q14H [facility] Last Admin: 04/16/16 05:53 Dose: 70 mls/hr Mirtazapine (Remeron -) 15 mg PO [facility] Last Admin: 04/15/16 21:25 Dose: Not Given Nystatin (Nystatin Oral Suspension -) 500,000 units PO Q6HPO [facility] Last Admin: 04/16/16 11:33 Dose: 500,000 units Senna (Senna -) 2 tab PO [facility] Last Admin: 04/15/16 21:25 Dose: Not Given - Objective Vital Signs: Vital Signs Temperature 97.4 F L 04/16/16 06:00 Pulse Rate 74 04/16/16 10:31 Respiratory Rate 18 04/16/16 06:00 Blood Pressure 118/57 04/16/16 06:00 O2 Sat by Pulse Oximetry (%) 98 04/16/16 10:31 Constitutional: Yes: Calm Eyes: Yes: Conjunctiva Clear HENT: Yes: Atraumatic Cardiovascular: Yes: S1, S2 Respiratory: Yes: CTA Bilaterally Gastrointestinal: Yes: Soft Genitourinary: Yes: Incontinence Musculoskeletal: Yes: Muscle Weakness Edema: No Neurological: Yes: Pre-Existing Deficit Labs: CBC, BMP 04/13/16 06:35 04/16/16 06:00 INR, PTT INR 1.37 (0.82-1.09) H 04/10/16 05:10 Problem List - Problems (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 (2) Hypernatremia Code(s): E87.0 - HYPEROSMOLALITY AND HYPERNATREMIA (3) Hypokalemia Code(s): E87.6 - HYPOKALEMIA (4) Sepsis Code(s): A41.9 - SEPSIS, UNSPECIFIED ORGANISM Qualifiers: Sepsis type: sepsis due to unspecified organism Qualified Code(s): A41.9 - Sepsis, unspecified organism (5) UTI (urinary tract infection) Code(s): N39.0 - URINARY TRACT INFECTION, SITE NOT SPECIFIED Qualifiers: Urinary tract infection type: site unspecified Hematuria presence: without hematuria Qualified Code(s): N39.0 - Urinary tract infection, site not specified Assessment/Plan Current Medications Generic Name Dose Route Start Last Admin Trade Name Freq PRN Reason Stop Dose Admin Acetaminophen 650 mg 04/10/16 15:56 Tylenol - PO Q4H PRN FEVER OR PAIN Amantadine HCl 100 mg 04/11/16 10:00 04/16/16 11:31 Symmetrel - PO Not Given DAILY MATHEW Artificial Tears 1 drop 04/11/16 10:00 04/16/16 11:33 Artificial Tears OU 1 drop DAILY MATHEW Administration Docusate Sodium 300 mg 04/10/16 22:00 04/15/16 21:25 Colace - PO Not Given HS MATHEW Heparin Sodium (Porcine) 5,000 unit 04/10/16 22:00 04/16/16 11:33 Heparin - SQ 5,000 unit BID MATHEW Administration Amino Acids 1,000 mls @ 70 mls/hr 04/14/16 11:57 04/16/16 05:53 Clinimix - IV 70 mls/hr Q14H MATHEW Administration Mirtazapine 15 mg 04/10/16 22:00 04/15/16 21:25 Remeron - PO Not Given HS MATHEW Nystatin 500,000 units 04/10/16 18:00 04/16/16 11:33 Nystatin Oral Suspension - PO 500,000 units Q6HPO MATHEW Administration Senna 2 tab 04/10/16 22:00 04/15/16 21:25 Senna - PO Not Given HS MATHEW Laboratory Tests 04/16/16 06:00 Phosphorus 1.9 L Impression 1. Hypernatremia 2. hypokalemia 3. Carrie's disease 4. depression 5. sepsis 6. UTI 7. rhabdo 8. malnutrition Plan - cont clinimix, will increase rate - will replace phos - repeat labs in am - peg tube tomorrow - renal function is stable - monitor sodium levels - follow cultures, no growth to date Dr Lord
[2016-04-16] MEDS ORDERED: POTASSIUM PHOSPHATE 30 MM in DEXTROSE 5%-WATER - 500 ML IVPB ONE (14:00)
--- NOTE | 2016-04-16 14:55 | PN ---
Progress Note (short form) - Note Progress Note: No acute events overnight. NAD on face tent. Afebrile. Intake & Output 04/13/16 04/14/16 04/15/16 04/16/16 23:59 23:59 23:59 23:59 Intake Total 800 200 750 50 Balance 800 200 750 50 Weight 116 lb 6 oz 115 lb 110 lb 4 oz 109 lb Last Vital Signs Temp Pulse Resp BP Pulse Ox 97.5 F L 101 H 20 136/91 98 04/16/16 13:57 04/16/16 13:57 04/16/16 13:57 04/16/16 13:57 04/16/16 10:31 Active Medications Acetaminophen (Tylenol -) 650 mg PO Q4H PRN PRN Reason: FEVER OR PAIN Amantadine HCl (Symmetrel -) 100 mg PO DAILY [facility] Last Admin: 04/16/16 11:31 Dose: Not Given Artificial Tears (Artificial Tears) 1 drop OU DAILY [facility] Last Admin: 04/16/16 11:33 Dose: 1 drop Docusate Sodium (Colace -) 300 mg PO [facility] Last Admin: 04/15/16 21:25 Dose: Not Given Heparin Sodium (Porcine) (Heparin -) 5,000 unit SQ BID [facility] Last Admin: 04/16/16 11:33 Dose: 5,000 unit Amino Acids (Clinimix -) 1,000 mls @ 83 mls/hr IV Q12H [facility] Last Admin: 04/16/16 14:11 Dose: Not Given Potassium Phosphate 30 mm/ (Dextrose) 510 mls @ 62.5 mls/hr IVPB ONCE ONE Stop: 04/16/16 22:09 Mirtazapine (Remeron -) 15 mg PO [facility] Last Admin: 04/15/16 21:25 Dose: Not Given Nystatin (Nystatin Oral Suspension -) 500,000 units PO Q6HPO [facility] Last Admin: 04/16/16 11:33 Dose: 500,000 units Senna (Senna -) 2 tab PO [facility] Last Admin: 04/15/16 21:25 Dose: Not Given Constitutional: Yes: Awake, NAD Eyes: Yes: PERRL HENT: Yes: (-) Pallor Neck: Yes: WNL Cardiovascular: Yes: S1, S2 Respiratory: Yes: Diminished at the bases, few basilar rhonchi Gastrointestinal: Yes: Normal Bowel Sounds ...Rectal Exam: Yes: Deferred Renal/: Yes: WNL Extremities: Yes: Cool, Other (contraction) Edema: Yes Edema: LLE: Trace, RLE: Trace Peripheral Pulses WNL: Yes (+2 bilateral pedal pulses) Integumentary: Yes: Tenting Psychiatric: Yes: Alert. 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
--- NOTE | 2016-04-16 18:02 | PN ---
Progress Note, Physician - Current Medication List Current Medications: Active Medications Acetaminophen (Tylenol -) 650 mg PO Q4H PRN PRN Reason: FEVER OR PAIN Amantadine HCl (Symmetrel -) 100 mg PO DAILY [facility] Last Admin: 04/16/16 11:31 Dose: Not Given Artificial Tears (Artificial Tears) 1 drop OU DAILY [facility] Last Admin: 04/16/16 11:33 Dose: 1 drop Docusate Sodium (Colace -) 300 mg PO [facility] Last Admin: 04/15/16 21:25 Dose: Not Given Heparin Sodium (Porcine) (Heparin -) 5,000 unit SQ BID [facility] Last Admin: 04/16/16 11:33 Dose: 5,000 unit Amino Acids (Clinimix -) 1,000 mls @ 83 mls/hr IV Q12H [facility] Last Admin: 04/16/16 14:11 Dose: Not Given Potassium Phosphate 30 mm/ (Dextrose) 510 mls @ 62.5 mls/hr IVPB ONCE ONE Stop: 04/16/16 22:09 Last Admin: 04/16/16 15:18 Dose: 62.5 mls/hr Mirtazapine (Remeron -) 15 mg PO [facility] Last Admin: 04/15/16 21:25 Dose: Not Given Nystatin (Nystatin Oral Suspension -) 500,000 units PO Q6HPO [facility] Last Admin: 04/16/16 11:33 Dose: 500,000 units Senna (Senna -) 2 tab PO [facility] Last Admin: 04/15/16 21:25 Dose: Not Given - Objective Vital Signs: Vital Signs Temperature 97.5 F L 04/16/16 13:57 Pulse Rate 101 H 04/16/16 13:57 Respiratory Rate 20 04/16/16 13:57 Blood Pressure 136/91 04/16/16 13:57 O2 Sat by Pulse Oximetry (%) 98 04/16/16 10:31 Cardiovascular: Yes: WNL Respiratory: Yes: WNL Gastrointestinal: Yes: WNL Edema: No Labs: CBC, BMP 04/13/16 06:35 04/16/16 06:00 INR, PTT INR 1.37 (0.82-1.09) H 04/10/16 05:10 Problem List - Problems (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 (2) Sepsis Code(s): A41.9 - SEPSIS, UNSPECIFIED ORGANISM Qualifiers: Sepsis type: sepsis due to unspecified organism Qualified Code(s): A41.9 - Sepsis, unspecified organism (3) UTI (urinary tract infection) Code(s): N39.0 - URINARY TRACT INFECTION, SITE NOT SPECIFIED Qualifiers: Urinary tract infection type: site unspecified Hematuria presence: without hematuria Qualified Code(s): N39.0 - Urinary tract infection, site not specified (4) Pneumonia Code(s): J18.9 - PNEUMONIA, UNSPECIFIED ORGANISM (5) Hypernatremia Code(s): E87.0 - HYPEROSMOLALITY AND HYPERNATREMIA Assessment/Plan (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 (2) Hyperglycemia Code(s): R73.9 - HYPERGLYCEMIA, UNSPECIFIED (3) Hypernatremia Code(s): E87.0 - HYPEROSMOLALITY AND HYPERNATREMIA (4) Pneumonia Code(s): J18.9 - PNEUMONIA, UNSPECIFIED ORGANISM (5) Sepsis Code(s): A41.9 - SEPSIS, UNSPECIFIED ORGANISM Qualifiers: Qualified Code(s): A41.9 - Sepsis, unspecified organism (6) Dysphagia Code(s): R13.10 - DYSPHAGIA, UNSPECIFIED (7) UTI (urinary tract infection) Code(s): N39.0 - URINARY TRACT INFECTION, SITE NOT SPECIFIED Qualifiers: Qualified Code(s): N39.0 - Urinary tract infection, site not specified (8) Acute respiratory distress Code(s): J80 - ACUTE RESPIRATORY DISTRESS SYNDROME Assessment/Plan DISCUSSED WITH PIPER CABALLERO, PEG LIKELY NEEDED WITH DETERIORATION OF THE ABILITY TO SWALLOW OVER THE LAST SEVERAL MONTHS. MEDICALLY CLEARED FOR PEG PLACEMENT THE BENEFIT OUTWEIGHS THE RISK S/P IV ABx PEG FOR SATURDAY WITH DR CORBIN April REPLETE KCL, RENAL F/U -> F/U LABS OTOLARYNGOLOGY PHYSICIAN FM
[2016-04-16] MEDS: DOCUSATE SODIUM 100 MG CAPSULE (FP) PO SCH (21:41)
[2016-04-16] MEDS: MIRTAZAPINE 15 MG TABLET (FP) PO SCH (21:41)
[2016-04-16] MEDS: SENNOSIDES 8.6MG TABLET (FP) PO SCH (21:41)
[2016-04-17] MEDS: NYSTATIN 500,000 UNITS/5 ML SUSPENSION PO SCH ×3 (06:45→17:23)
[2016-04-17] MEDS: AMINO ACIDS 4.25%/D5W 1,000 ML IV SCH ×4 (06:45→18:04)
[2016-04-17 08:05] LABS: MCH 27.8 pg (25.7-33.7); MCHC 33.5 g/dl (32.0-36.0); MEAN CELL VOLUME 82.8 fl (80-96); MEAN PLT VOLUME 9.3 fl (7.5-11.1); PLATELET COUNT 199 K/MM3 (134-434); RDW 13.7 % (11.6-15.6); WHITE BLOOD COUNT 8.6 K/mm3 (4.0-10.0)
[2016-04-17 08:43] LABS: ALBUMIN 2.1 g/dl (3.4-5.0); CALCIUM 7.8 mg/dL (8.5-10.1)
[2016-04-17 08:48] LABS: ALK PHOS 73 U/L (45-117); ANION GAP 11 (8-16); BILIRUBIN,TOTAL 0.4 mg/dL (0.2-1.0); CO2 27 mmol/L (21-32); CREATININE 0.3 mg/dL (0.55-1.02); GLUCOSE,RANDOM 104 mg/dL (74-106); PHOSPHOROUS 2.3 mg/dL (2.5-4.9); SGOT/AST 97 U/L (15-37); SGPT/ALT 115 U/L (12-78); TOT PROT 5.1 g/dl (6.4-8.2)
[2016-04-17] MEDS: HEPARIN NA (PORCINE) 5,000 UNITS/ML 1ML VIAL SQ SCH ×2 (10:00→22:00)
[2016-04-17] MEDS: AMANTADINE HCL 100 MG TABLET PO SCH (10:02)
[2016-04-17] MEDS ORDERED: PT OWN MED DRAWER 7, Y5N ONE (10:03)
[2016-04-17] MEDS: ARTIFICIAL TEARS (POLYVINYL ALCOHOL 1.4%) OPTH DROPS OU SCH (10:06)
--- NOTE | 2016-04-17 11:17 | PN ---
Progress Note (short form) - Note Progress Note: No acute events overnight. NAD on face tent. Afebrile. Intake & Output 04/14/16 04/15/16 04/16/16 04/17/16 23:59 23:59 23:59 23:59 Intake Total 507 883 4311 Balance 180 534 3337 Weight 115 lb 110 lb 4 oz 109 lb 111 lb Last Vital Signs Temp Pulse Resp BP Pulse Ox 97.8 F 86 20 105/60 98 04/17/16 10:00 04/17/16 10:00 04/17/16 10:00 04/17/16 10:00 04/17/16 09:00 Active Medications Acetaminophen (Tylenol -) 650 mg PO Q4H PRN PRN Reason: FEVER OR PAIN Amantadine HCl (Symmetrel -) 100 mg PO DAILY [facility] Last Admin: 04/17/16 10:02 Dose: Not Given Artificial Tears (Artificial Tears) 1 drop OU DAILY [facility] Last Admin: 04/17/16 10:06 Dose: 1 drop Docusate Sodium (Colace -) 300 mg PO [facility] Last Admin: 04/16/16 21:41 Dose: Not Given Heparin Sodium (Porcine) (Heparin -) 5,000 unit SQ BID [facility] Last Admin: 04/16/16 22:18 Dose: 5,000 unit Amino Acids (Clinimix -) 1,000 mls @ 83 mls/hr IV Q12H [facility] Last Admin: 04/17/16 08:52 Dose: 83 mls/hr Mirtazapine (Remeron -) 15 mg PO [facility] Last Admin: 04/16/16 21:41 Dose: Not Given Nystatin (Nystatin Oral Suspension -) 500,000 units PO Q6HPO [facility] Last Admin: 04/17/16 06:45 Dose: Not Given Senna (Senna -) 2 tab PO [facility] Last Admin: 04/16/16 21:41 Dose: Not Given Constitutional: Yes: Awake, NAD Eyes: Yes: PERRL HENT: Yes: (-) Pallor Neck: Yes: WNL Cardiovascular: Yes: S1, S2 Respiratory: Yes: Diminished at the bases, few basilar rhonchi Gastrointestinal: Yes: Normal Bowel Sounds ...Rectal Exam: Yes: Deferred Renal/: Yes: WNL Extremities: Yes: Cool, Other (contraction) Edema: Yes Edema: LLE: Trace, RLE: Trace Peripheral Pulses WNL: Yes (+2 bilateral pedal pulses) Integumentary: Yes: Tenting Psychiatric: Yes: Alert. 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
[2016-04-17 11:48] LABS: PLATELET ESTIMATE ADEQUATE (NORMAL)
[2016-04-17] MEDS ORDERED: PROPOFOL 20 ML ONE (13:32)
[2016-04-17] MEDS ORDERED: LIDOCAINE HCL/PF 1% SDV 5ML VIAL ONE (13:32)
[2016-04-17] MEDS ORDERED: ceFAZolin SODIUM 1 GM VIAL ONE (13:36)
--- NOTE | 2016-04-17 16:11 | PN ---
Progress Note, Physician Chief Complaint: S/P GTUBE PLACEMENT SUCCESSFUL - Current Medication List Current Medications: Active Medications Acetaminophen (Tylenol -) 650 mg PO Q4H PRN PRN Reason: FEVER OR PAIN Amantadine HCl (Symmetrel -) 100 mg PO DAILY [facility] Last Admin: 04/17/16 10:02 Dose: Not Given Artificial Tears (Artificial Tears) 1 drop OU DAILY [facility] Last Admin: 04/17/16 10:06 Dose: 1 drop Docusate Sodium (Colace -) 300 mg PO [facility] Last Admin: 04/16/16 21:41 Dose: Not Given Heparin Sodium (Porcine) (Heparin -) 5,000 unit SQ BID [facility] Last Admin: 04/16/16 22:18 Dose: 5,000 unit Amino Acids (Clinimix -) 1,000 mls @ 83 mls/hr IV Q12H [facility] Last Admin: 04/17/16 08:52 Dose: 83 mls/hr Mirtazapine (Remeron -) 15 mg PO [facility] Last Admin: 04/16/16 21:41 Dose: Not Given Nystatin (Nystatin Oral Suspension -) 500,000 units PO Q6HPO [facility] Last Admin: 04/17/16 14:27 Dose: Not Given Senna (Senna -) 2 tab PO [facility] Last Admin: 04/16/16 21:41 Dose: Not Given - Objective Vital Signs: Vital Signs Temperature 97.8 F 04/17/16 15:18 Pulse Rate 83 04/17/16 15:18 Respiratory Rate 20 04/17/16 15:18 Blood Pressure 132/84 04/17/16 15:18 O2 Sat by Pulse Oximetry (%) 100 04/17/16 15:18 Constitutional: Yes: No Distress Eyes: Yes: WNL HENT: Yes: WNL Neck: Yes: WNL Cardiovascular: Yes: WNL Respiratory: Yes: WNL Gastrointestinal: Yes: Other Musculoskeletal: Yes: Joint Stiffness, Muscle Weakness Extremities: Yes: Other Edema: No Peripheral Pulses WNL: Yes Integumentary: Yes: WNL Wound/Incision: Yes: Clean/Dry Neurological: Yes: Pre-Existing Deficit ...Motor Strength: LUE, LLE, RUE, RLE Labs: CBC, BMP 04/17/16 06:00 04/17/16 06:00 INR, PTT INR 1.37 (0.82-1.09) H 04/10/16 05:10 Problem List - Problems (1) [place]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 (2) Hyperglycemia Code(s): R73.9 - HYPERGLYCEMIA, UNSPECIFIED (3) Hypernatremia Code(s): E87.0 - HYPEROSMOLALITY AND HYPERNATREMIA (4) Pneumonia Code(s): J18.9 - PNEUMONIA, UNSPECIFIED ORGANISM (5) Sepsis Code(s): A41.9 - SEPSIS, UNSPECIFIED ORGANISM Qualifiers: Sepsis type: sepsis due to unspecified organism Qualified Code(s): A41.9 - Sepsis, unspecified organism (6) Dysphagia Code(s): R13.10 - DYSPHAGIA, UNSPECIFIED (7) UTI (urinary tract infection) Code(s): N39.0 - URINARY TRACT INFECTION, SITE NOT SPECIFIED Qualifiers: Urinary tract infection type: site unspecified Hematuria presence: without hematuria Qualified Code(s): N39.0 - Urinary tract infection, site not specified (8) Acute respiratory distress Code(s): J80 - ACUTE RESPIRATORY DISTRESS SYNDROME Assessment/Plan PEG PLACED AND SUCCESSFUL START FEEDS PER GI TRANSFER ZHANG KALESissy TOMORROW CHECK LABS
--- NOTE | 2016-04-17 17:03 | PN ---
Progress Note, Physician History of Present Illness: Pt seen and examined at bedside. She had the peg tube placed today. - Current Medication List Current Medications: Active Medications Acetaminophen (Tylenol -) 650 mg PO Q4H PRN PRN Reason: FEVER OR PAIN Amantadine HCl (Symmetrel -) 100 mg PO DAILY [facility] Last Admin: 04/17/16 10:02 Dose: Not Given Artificial Tears (Artificial Tears) 1 drop OU DAILY [facility] Last Admin: 04/17/16 10:06 Dose: 1 drop Docusate Sodium (Colace -) 300 mg PO [facility] Last Admin: 04/16/16 21:41 Dose: Not Given Heparin Sodium (Porcine) (Heparin -) 5,000 unit SQ BID [facility] Last Admin: 04/16/16 22:18 Dose: 5,000 unit Amino Acids (Clinimix -) 1,000 mls @ 83 mls/hr IV Q12H [facility] Last Admin: 04/17/16 08:52 Dose: 83 mls/hr Mirtazapine (Remeron -) 15 mg PO [facility] Last Admin: 04/16/16 21:41 Dose: Not Given Nystatin (Nystatin Oral Suspension -) 500,000 units PO Q6HPO [facility] Last Admin: 04/17/16 14:27 Dose: Not Given Senna (Senna -) 2 tab PO [facility] Last Admin: 04/16/16 21:41 Dose: Not Given - Objective Vital Signs: Vital Signs Temperature 97.8 F 04/17/16 15:18 Pulse Rate 83 04/17/16 15:18 Respiratory Rate 20 04/17/16 15:18 Blood Pressure 132/84 04/17/16 15:18 O2 Sat by Pulse Oximetry (%) 100 04/17/16 15:18 Constitutional: Yes: Calm Eyes: Yes: Conjunctiva Clear HENT: Yes: Atraumatic Neck: Yes: Supple Cardiovascular: Yes: S1, S2 Respiratory: Yes: CTA Bilaterally Gastrointestinal: Yes: Soft, Other (s/p peg) Genitourinary: Yes: Incontinence Edema: No Neurological: Yes: Pre-Existing Deficit Labs: CBC, BMP 04/17/16 06:00 04/17/16 06:00 INR, PTT INR 1.37 (0.82-1.09) H 04/10/16 05:10 Problem List - Problems (1) [place]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 (2) Hypernatremia Code(s): E87.0 - HYPEROSMOLALITY AND HYPERNATREMIA (3) Hypokalemia Code(s): E87.6 - HYPOKALEMIA (4) Sepsis Code(s): A41.9 - SEPSIS, UNSPECIFIED ORGANISM Qualifiers: Sepsis type: sepsis due to unspecified organism Qualified Code(s): A41.9 - Sepsis, unspecified organism (5) UTI (urinary tract infection) Code(s): N39.0 - URINARY TRACT INFECTION, SITE NOT SPECIFIED Qualifiers: Urinary tract infection type: site unspecified Hematuria presence: without hematuria Qualified Code(s): N39.0 - Urinary tract infection, site not specified Assessment/Plan Current Medications Generic Name Dose Route Start Last Admin Trade Name Freq PRN Reason Stop Dose Admin Acetaminophen 650 mg 04/10/16 15:56 Tylenol - PO Q4H PRN FEVER OR PAIN Amantadine HCl 100 mg 04/11/16 10:00 04/17/16 10:02 Symmetrel - PO Not Given DAILY MATHEW Artificial Tears 1 drop 04/11/16 10:00 04/17/16 10:06 Artificial Tears OU 1 drop DAILY [facility]W Administration Docusate Sodium 300 mg 04/10/16 22:00 04/16/16 21:41 Colace - PO Not Given HS MATHEW Heparin Sodium (Porcine) 5,000 unit 04/10/16 22:00 04/16/16 22:18 Heparin - SQ 5,000 unit BID MATHEW Administration Amino Acids 1,000 mls @ 83 mls/hr 04/16/16 14:00 04/17/16 08:52 Clinimix - IV 83 mls/hr Q12H MATHEW Administration Mirtazapine 15 mg 04/10/16 22:00 04/16/16 21:41 Remeron - PO Not Given HS MATHEW Nystatin 500,000 units 04/10/16 18:00 04/17/16 14:27 Nystatin Oral Suspension - PO Not Given Q6HPO MATHEW Senna 2 tab 04/10/16 22:00 04/16/16 21:41 Senna - PO Not Given HS MATHEW Laboratory Tests 04/17/16 06:00 Phosphorus 2.3 L D Impression 1. Hypernatremia 2. hypokalemia 3. Shawanda's disease 4. depression 5. sepsis 6. UTI 7. rhabdo 8. malnutrition Plan - pt had peg placed - will keep on clinimix until GI clears peg for use - will supplements phos and potassium - repeat lab sin am - repeat labs in am - renal function is stable - monitor sodium levels Dr Lord
[2016-04-17] MEDS ORDERED: POTASSIUM PHOSPHATE 30 MM in DEXTROSE 5%-WATER - 500 ML IVPB ONE (18:00)
[2016-04-17] MEDS: DOCUSATE SODIUM 100 MG CAPSULE (FP) PO SCH (22:00)
[2016-04-17] MEDS: MIRTAZAPINE 15 MG TABLET (FP) PO SCH (22:00)
[2016-04-17] MEDS: SENNOSIDES 8.6MG TABLET (FP) PO SCH (22:00)
[2016-04-18] MEDS: NYSTATIN 500,000 UNITS/5 ML SUSPENSION PO SCH ×3 (00:44→11:08)
[2016-04-18] MEDS ORDERED: PT OWN MED DRAWER 7, Y5N ONE ×2 (02:18→11:08)
[2016-04-18] MEDS: AMINO ACIDS 4.25%/D5W 1,000 ML IV SCH (05:05)
--- NOTE | 2016-04-18 06:44 | DS ---
Physical Examination Vital Signs: Vital Signs Temperature 97.5 F L 04/18/16 06:00 Pulse Rate 107 H 04/18/16 06:00 Respiratory Rate 20 04/18/16 06:00 Blood Pressure 126/84 04/18/16 06:00 O2 Sat by Pulse Oximetry (%) 99 04/17/16 22:20 Findings/Remarks: tolerateing feeds Constitutional: Yes: No Distress Eyes: Yes: WNL HENT: Yes: WNL Neck: Yes: WNL Cardiovascular: Yes: WNL Respiratory: Yes: WNL Renal/: Yes: WNL Musculoskeletal: Yes: Muscle Weakness Extremities: Yes: Deformity Peripheral Pulses WNL: No Integumentary: Yes: WNL Wound/Incision: Yes: Other Neurological: Yes: Pre-Existing Deficit ...Motor Strength: LLE, RLE Psychiatric: Yes: Other Labs: CBC, BMP 04/17/16 06:00 04/17/16 06:00 Discharge Summary Reason For Visit: URINARY TRACT INFECTION,CARRIE'S DISEASE,SEPSI Current Active Problems Acute respiratory distress (Acute) Dehydration with hypernatremia (Acute) Dysphagia (Acute) [place] disease (Acute) Hyperglycemia (Acute) Hypernatremia (Acute) Hypokalemia (Acute) Pneumonia (Acute) Sepsis (Acute) UTI (urinary tract infection) (Acute) Procedures: Principal: FEEDING TUBE PLACED Other Procedures: ADMITTED WITH ACUTE PNA/UTI , POOR APPETITE FAILED CALORIE COUNT, PEG PLACED, COMPLETED ABX Condition: Fair - Instructions Diet, Activity, Other Instructions: JEVITY INCREASE TO GOAL TOLERATED Referrals: Antonio Caballero [Primary Care Provider] - Disposition: [facility] - Home Medications Comprehensive Discharge Medication List: Ambulatory Orders Amantadine HCl [Symmetrel -] 100 mg PO DAILY 04/08/16 Docusate Sodium 300 mg PO HS 04/08/16 Hypromellose 0.5% Opth Soln [Artificial Tears] 1 drop OU DAILY 04/08/16 Mirtazapine 7.5 mg PO HS 04/08/16 Mirtazapine 15 mg PO HS 04/08/16 Sennosides [Senna] 2 tab PO HS 04/08/16
[2016-04-18 07:47] LABS: MCH 27.9 pg (25.7-33.7); MCHC 33.5 g/dl (32.0-36.0); MEAN CELL VOLUME 83.3 fl (80-96); MEAN PLT VOLUME 8.9 fl (7.5-11.1); PLATELET COUNT 229 K/MM3 (134-434); RDW 13.9 % (11.6-15.6); WHITE BLOOD COUNT 10.6 K/mm3 (4.0-10.0)
[2016-04-18 09:08] LABS: ALBUMIN 2.6 g/dl (3.4-5.0); ALK PHOS 102 U/L (45-117); ANION GAP 11 (8-16); BILIRUBIN,TOTAL 0.4 mg/dL (0.2-1.0); CALCIUM 8.3 mg/dL (8.5-10.1); CO2 28 mmol/L (21-32); CREATININE 0.4 mg/dL (0.55-1.02); GLUCOSE,RANDOM 154 mg/dL (74-106); MAGNESIUM 2.2 mg/dL (1.8-2.4); PHOSPHOROUS 3.9 mg/dL (2.5-4.9); SGOT/AST 138 U/L (15-37); SGPT/ALT 196 U/L (12-78); TOT PROT 6.2 g/dl (6.4-8.2)
--- NOTE | 2016-04-18 09:30 | PN ---
Progress Note (short form) - Note Progress Note: Anesthesia post op check Patient seen at bedside, unresponsive to questions, patient appeared in no distress, no obvious adverse effect of anesthetic, received a PEG tube under monitored anesthesia care. Dept of anesthesia will sign off care at this time
[2016-04-18] MEDS ORDERED: BACITRACIN 30 GM TUBE TOPICAL OINTMENT TP SCH (10:00)
[2016-04-18] MEDS ORDERED: MULTIVITAMINS (DAILY MVI) TABLET (FP) PO SCH (10:00)
[2016-04-18] MEDS: ARTIFICIAL TEARS (POLYVINYL ALCOHOL 1.4%) OPTH DROPS OU SCH (11:06)
[2016-04-18 13:53] VITALS: BP 123/78; PULSE 105; TEMP 97.8
[2016-04-18] MEDS: AMANTADINE HCL 100 MG TABLET PO SCH (14:51)
--- NOTE | 2016-04-18 17:08 | PN ---
Progress Note (short form) - Note Progress Note: EVENT AND CHARTS REVIEWED FORMS COMPLETED FOR DISCHARGE WILL FOLLOW AT [facility] Problem List - Problems (1) [place]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 (2) Hyperglycemia Code(s): R73.9 - HYPERGLYCEMIA, UNSPECIFIED (3) Hypernatremia Code(s): E87.0 - HYPEROSMOLALITY AND HYPERNATREMIA (4) Pneumonia Code(s): J18.9 - PNEUMONIA, UNSPECIFIED ORGANISM (5) Sepsis Code(s): A41.9 - SEPSIS, UNSPECIFIED ORGANISM Qualifiers: Sepsis type: sepsis due to unspecified organism Qualified Code(s): A41.9 - Sepsis, unspecified organism (6) Dysphagia Code(s): R13.10 - DYSPHAGIA, UNSPECIFIED (7) UTI (urinary tract infection) Code(s): N39.0 - URINARY TRACT INFECTION, SITE NOT SPECIFIED Qualifiers: Urinary tract infection type: site unspecified Hematuria presence: without hematuria Qualified Code(s): N39.0 - Urinary tract infection, site not specified (8) Acute respiratory distress Code(s): J80 - ACUTE RESPIRATORY DISTRESS SYNDROME
--- NOTE | 2016-04-18 17:24 | PN ---
Progress Note, Physician History of Present Illness: Pt seen and examined at bedside. She is tolerating feeds. - Current Medication List Current Medications: Active Medications Acetaminophen (Tylenol -) 650 mg PO Q4H PRN PRN Reason: FEVER OR PAIN Amantadine HCl (Symmetrel -) 100 mg PO DAILY [facility] Last Admin: 04/18/16 14:51 Dose: 100 mg Artificial Tears (Artificial Tears) 1 drop OU DAILY [facility] Last Admin: 04/18/16 11:06 Dose: 1 drop Bacitracin (Bacitracin -) 1 applic TP DAILY [facility] Last Admin: 04/18/16 10:51 Dose: 1 applic Docusate Sodium (Colace -) 300 mg PO HS [facility] Last Admin: 04/17/16 22:00 Dose: Not Given Hydrocortisone (Anusol 2.5% Hc Cream -) 1 applic TP BID [facility] Amino Acids (Clinimix -) 1,000 mls @ 75 mls/hr IV Q13H [facility] Last Admin: 04/18/16 05:05 Dose: Not Given Mirtazapine (Remeron -) 15 mg PO HS [facility] Last Admin: 04/17/16 22:00 Dose: Not Given Multivitamins/Minerals/Vitamin C (Tab-A-Vit -) 1 tab PO DAILY [facility] Last Admin: 04/18/16 11:08 Dose: 1 tab Nystatin (Nystatin Oral Suspension -) 500,000 units PO Q6HPO [facility] Last Admin: 04/18/16 11:08 Dose: 500,000 units Senna (Senna -) 2 tab PO HS [facility] Last Admin: 04/17/16 22:00 Dose: Not Given - Objective Vital Signs: Vital Signs Temperature 97.8 F 04/18/16 13:51 Pulse Rate 105 H 04/18/16 13:51 Respiratory Rate 20 04/18/16 13:51 Blood Pressure 123/78 04/18/16 13:51 O2 Sat by Pulse Oximetry (%) 97 04/18/16 09:05 Constitutional: Yes: Calm Eyes: Yes: Conjunctiva Clear Cardiovascular: Yes: S1, S2 Respiratory: Yes: CTA Bilaterally Gastrointestinal: Yes: Other (peg) Genitourinary: Yes: Incontinence Musculoskeletal: Yes: Muscle Weakness Edema: No Neurological: Yes: Pre-Existing Deficit Labs: CBC, BMP 04/18/16 06:00 04/18/16 06:00 INR, PTT INR 1.37 (0.82-1.09) H 04/10/16 05:10 Problem List - Problems (1) [place]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 (2) Hypernatremia Code(s): E87.0 - HYPEROSMOLALITY AND HYPERNATREMIA (3) Hypokalemia Code(s): E87.6 - HYPOKALEMIA (4) Sepsis Code(s): A41.9 - SEPSIS, UNSPECIFIED ORGANISM Qualifiers: Sepsis type: sepsis due to unspecified organism Qualified Code(s): A41.9 - Sepsis, unspecified organism (5) UTI (urinary tract infection) Code(s): N39.0 - URINARY TRACT INFECTION, SITE NOT SPECIFIED Qualifiers: Urinary tract infection type: site unspecified Hematuria presence: without hematuria Qualified Code(s): N39.0 - Urinary tract infection, site not specified Assessment/Plan Current Medications Generic Name Dose Route Start Last Admin Trade Name Freq PRN Reason Stop Dose Admin Acetaminophen 650 mg 04/10/16 15:56 Tylenol - PO Q4H PRN FEVER OR PAIN Amantadine HCl 100 mg 04/11/16 10:00 04/18/16 14:51 Symmetrel - PO 100 mg DAILY [facility] Administration Artificial Tears 1 drop 04/11/16 10:00 04/18/16 11:06 Artificial Tears OU 1 drop DAILY [facility] Administration Bacitracin 1 applic 04/18/16 10:00 04/18/16 10:51 Bacitracin - TP 1 applic DAILY [facility] Administration Docusate Sodium 300 mg 04/10/16 22:00 04/17/16 22:00 Colace - PO Not Given HS [facility] Hydrocortisone 1 applic 04/18/16 22:00 Anusol 2.5% Hc Cream - TP BID [facility] Amino Acids 1,000 mls @ 75 mls/hr 04/17/16 17:04 04/18/16 05:05 Clinimix - IV Not Given Q13H [facility] Mirtazapine 15 mg 04/10/16 22:00 04/17/16 22:00 Remeron - PO Not Given HS [facility]HE[facility] Multivitamins/Minerals/Vitamin C 1 tab 04/18/16 10:00 04/18/16 11:08 Tab-A-Vit - PO 1 tab DAILY [facility] Administration Nystatin 500,000 units 04/10/16 18:00 04/18/16 11:08 Nystatin Oral Suspension - PO 500,000 units Q6HPO [facility] Administration Senna 2 tab 04/10/16 22:00 04/17/16 22:00 Senna - PO Not Given HS [facility] Laboratory Tests 04/18/16 06:00 Phosphorus 3.9 D Magnesium 2.2 Impression 1. Hypernatremia 2. hypokalemia 3. Shawanda's disease 4. depression 5. sepsis 6. UTI 7. rhabdo 8. malnutrition Plan - will stop clinimix - cont with feeds as tolerated - monitor bmp - volume status is stable - renal function is stable - monitor sodium levels Dr Lord
[2016-04-18] MEDS ORDERED: HYDROCORTISONE 2.5% TOPICAL CREAM 30 GM TUBE TP SCH (22:00)
== END 2016-04-18 18:13 | DRG 871 ==
LOC: JER 15:31 → JERBED 17:45 → JICU 22:34 → J4W 04-10 16:50 → J7W 04-12 19:19
PROVIDERS: ADMIT Family Medicine; ATTEND Family Medicine
PROC: 3E0F7GC Introduction of Other Therapeutic Substance into Respiratory Tract, Via Natural or Artificial Opening (ICD-10-PCS; 2016-04-09)
PROC: 3E0G76Z Introduction of Nutritional Substance into Upper GI, Via Natural or Artificial Opening (ICD-10-PCS; 2016-04-17)
PROC: 0DH63UZ Insertion of Feeding Device into Stomach, Percutaneous Approach (ICD-10-PCS; principal; 2016-04-17 11:30)
DX: A41.9 Sepsis, unspecified organism (principal); J69.0 Pneumonitis due to inhalation of food and vomit; I21.4 Non-ST elevation (NSTEMI) myocardial infarction; G10 Huntington's disease; J80 Acute respiratory distress syndrome; F33.8 Other recurrent depressive disorders; E87.0 Hyperosmolality and hypernatremia; N39.0 Urinary tract infection, site not specified; M62.82 Rhabdomyolysis; I24.8 Other forms of acute ischemic heart disease; E46 Unspecified protein-calorie malnutrition; F02.80 Dementia in other diseases classified elsewhere, unspecified severity, without behavioral disturbance, psychotic disturbance, mood disturbance, and anxiety; G20 Parkinson's disease; K21.9 Gastro-esophageal reflux disease without esophagitis; M62.81 Muscle weakness (generalized); E86.0 Dehydration; E87.6 Hypokalemia; Z68.21 Body mass index [BMI] 21.0-21.9, adult; R73.9 Hyperglycemia, unspecified; R13.10 Dysphagia, unspecified; K31.7 Polyp of stomach and duodenum; L89.151 Pressure ulcer of sacral region, stage 1
CPT/HCPCS: 36415; 36600; 70450-TC; 71010-TC; 80048; 80053; 81003; 81015; 82375; 82550; 82553; 82803; 83050; 83605; 83690; 83735; 83880; 84100; 84484; 85025; 85027; 85610; 87040; 87086; 87254; 87804; 87899; 90670; 93005; 93010; 99285-25; J1644

== ENCOUNTER 2020-05-12 17:24 | Emergency (ER) | payer OTHER ==
[2020-05-12 18:27] VITALS: TEMP 98.1; BMI 23.6
[2020-05-12 21:23] VITALS: BP 158/78; PULSE 76
== END 2020-05-12 21:23 ==
LOC: JER 17:24
DX: Z93.1 Gastrostomy status (principal)
CPT/HCPCS: 74018-TC-FY; 99284-25

== ENCOUNTER 2020-07-11 23:17 | Emergency (ER) | payer OTHER ==
[2020-07-11 23:33] VITALS: BP 156/83; PULSE 87; TEMP 97.4; BMI 29.2
== END 2020-07-12 01:14 | disposition home or self-care (01) ==
LOC: JER 23:17
DX: K94.23 Gastrostomy malfunction (principal)
CPT/HCPCS: 74018-TC-FY; 99283-25

== ENCOUNTER 2020-09-26 18:02 | Inpatient (IN) | payer OTHER ==
[2020-09-26 18:47] VITALS: BMI 19.5
[2020-09-26 20:52] LABS: BASO % 0.7 % (0-2.0); EOS % 0.2 % (0-4.5); HEMATOCRIT 37.6 % (32.4-45.2); HEMOGLOBIN 12.8 GM/dL (10.7-15.3); LYMPH % 4.9 % (8-40); MCH 28.7 pg (25.7-33.7); MCHC 34.1 g/dl (32.0-36.0); MEAN CELL VOLUME 84.2 fl (80-96); MEAN PLT VOLUME 10.3 fl (7.5-11.1); MONO % 9.8 % (3.8-10.2); NEUT % 84.4 % (42.8-82.8); PLATELET COUNT 333 10^3/uL (134-434); RBC 4.46 M/mm3 (3.60-5.2); RDW 14.4 % (11.6-15.6); WHITE BLOOD COUNT 13.1 K/mm3 (4.0-10.0)
[2020-09-26] MEDS ORDERED: SODIUM CHLORIDE 1,000 ML IV STA (20:54)
[2020-09-26 20:59] LABS: INR 1.14 (0.83-1.09); PROTHROMBIN TIME (PATIENT) 13.7 SEC (9.7-13.0)
[2020-09-26 21:01] LABS: CHLORIDE 101 mmol/L (98-107); SODIUM 131 mmol/L (136-145)
[2020-09-26 21:02] LABS: ACTIVATED PTT 32.9 SECONDS (25.2-36.5)
[2020-09-26 21:03] LABS: CALCIUM 8.1 mg/dL (8.5-10.1)
[2020-09-26 21:04] LABS: BLOOD UREA NITROGEN 20.8 mg/dL (7-18); CO2 27 mmol/L (21-32); GLUCOSE,RANDOM 114 mg/dL (74-106)
[2020-09-26 21:05] LABS: ALBUMIN 2.6 g/dl (3.4-5.0)
[2020-09-26 21:07] LABS: CREATININE 0.7 mg/dL (0.55-1.3); SGOT/AST 291 U/L (15-37); SGPT/ALT 6 U/L (13-61)
[2020-09-26 21:08] LABS: BILIRUBIN,TOTAL 8.5 mg/dL (0.2-1)
[2020-09-26 21:09] LABS: TOT PROT 6.8 g/dl (6.4-8.2)
[2020-09-26 21:10] LABS: ALK PHOS 818 U/L (45-117)
[2020-09-26 21:11] LABS: LIPASE 8012 U/L (73-393)
[2020-09-26 21:32] LABS: ANION GAP 3 MMOL/L (8-16)
[2020-09-26] MEDS ORDERED: ACETAMINOPHEN 1000 MG/100 ML VIAL (NON FORMULARY) IVPB ONE (21:45)
[2020-09-26] MEDS ORDERED: PIPERACILLIN/TAZOB 4.5 GM 4.5 GM in DEXTROSE 5%-WATER 100 ML IVPB ONE (21:48)
[2020-09-26 22:09] LABS: GAMMA GLUTAMYL TRANSPEPTIDASE 1544 U/L (5-85)
[2020-09-26] MEDS ORDERED: PIPERACILLIN/TAZOB 4.5 GM 4.5 GM/100 ML BAG IVPB ONE (23:23)
[2020-09-26] MEDS ORDERED: ACETAMINOPHEN INJECTION 100 ML IVPB ONE (23:24)
[2020-09-26 23:40] LABS: CHLORIDE 103 mmol/L (98-107); SODIUM 137 mmol/L (136-145)
[2020-09-26 23:42] LABS: ALBUMIN 2.8 g/dl (3.4-5.0); ANION GAP 8 MMOL/L (8-16); BLOOD UREA NITROGEN 21.8 mg/dL (7-18); CALCIUM 8.4 mg/dL (8.5-10.1); CO2 26 mmol/L (21-32); GLUCOSE,RANDOM 112 mg/dL (74-106)
[2020-09-26 23:45] LABS: CREATININE 0.5 mg/dL (0.55-1.3); SGOT/AST 242 U/L (15-37)
[2020-09-26 23:47] LABS: BILIRUBIN,TOTAL 9.1 mg/dL (0.2-1); TOT PROT 6.7 g/dl (6.4-8.2)
[2020-09-26 23:50] LABS: ALK PHOS 861 U/L (45-117); SGPT/ALT < 6 U/L (13-61)
[2020-09-27 06:58] LABS: BASO % 0.5 % (0-2.0); EOS % 0.1 % (0-4.5); HEMATOCRIT 38.8 % (32.4-45.2); HEMOGLOBIN 13.3 GM/dL (10.7-15.3); LYMPH % 4.1 % (8-40); MCHC 34.2 g/dl (32.0-36.0); MEAN PLT VOLUME 10.6 fl (7.5-11.1); MONO % 8.1 % (3.8-10.2); NEUT % 87.2 % (42.8-82.8); PLATELET COUNT 310 10^3/uL (134-434); RBC 4.56 M/mm3 (3.60-5.2); RDW 14.4 % (11.6-15.6); WHITE BLOOD COUNT 12.4 K/mm3 (4.0-10.0)
[2020-09-27 07:15] LABS: CHLORIDE 101 mmol/L (98-107); SODIUM 136 mmol/L (136-145)
[2020-09-27 07:18] LABS: ALBUMIN 2.8 g/dl (3.4-5.0); ANION GAP 8 MMOL/L (8-16); BLOOD UREA NITROGEN 22.7 mg/dL (7-18); CALCIUM 8.7 mg/dL (8.5-10.1); CO2 27 mmol/L (21-32); GLUCOSE,RANDOM 96 mg/dL (74-106); MAGNESIUM 2.7 mg/dL (1.8-2.4)
[2020-09-27 07:21] LABS: SGOT/AST 234 U/L (15-37)
[2020-09-27 07:22] LABS: CREATININE 0.6 mg/dL (0.55-1.3)
[2020-09-27 07:25] LABS: ALK PHOS 843 U/L (45-117); BILIRUBIN,TOTAL 10.4 mg/dL (0.2-1); TOT PROT 6.5 g/dl (6.4-8.2)
[2020-09-27 07:27] LABS: SGPT/ALT < 6 U/L (13-61)
[2020-09-27] MEDS ORDERED: LACTATED RINGERS SOLUTION 1,000 ML/1,000 ML INFUS.BAG IV SCH (08:15)
[2020-09-27] MEDS ORDERED: PIPERACILLIN/TAZOB 4.5 GM 4.5 GM in DEXTROSE 5%-WATER 100 ML IVPB SCH (09:00)
[2020-09-27] MEDS ORDERED: PIPERACILLIN/TAZOB 4.5 GM 4.5 GM/100 ML BAG IVPB ONE (11:25)
[2020-09-27 11:43] LABS: EPI CELLS 2 /uL (0-25.1); HYALINE CASTS 1 /uL (0-3.1); PH,URINE 5.5 (5.0-8.0); URINE APPEARANCE CLEAR; URINE BILIRUBIN 3+ (NEGATIVE); URINE COLOR DK YELLOW; URINE GLUCOSE (UA) NEGATIVE (NEGATIVE); URINE KETONE NEGATIVE (NEGATIVE); URINE LEUK ESTERASE TRACE (NEGATIVE); URINE NITRITE POSITIVE (NEGATIVE); URINE PROTEIN 1+ (NEGATIVE); URINE WBC 5 /uL (0-25.8)
[2020-09-27] MEDS: LACTATED RINGERS SOLUTION 1,000 ML/1,000 ML INFUS.BAG IV SCH ×2 (13:25→18:03)
[2020-09-27 15:57] LABS: URINE BACTERIA 2.7 /uL (0-1359); URINE RBC 84.3 /uL (0-23.9)
[2020-09-27] MEDS ORDERED: PIPERACILLIN/TAZOBACTAM 3.375 GM VIAL IVPB ONE (18:05)
[2020-09-27] MEDS ORDERED: DEXTROSE 5%-WATER - 50 ML IVPB ONE (18:05)
[2020-09-27] MEDS: PIPERACILLIN/TAZOB 3.375 GM 3.375 GM in DEXTROSE 5%-WATER - 50 ML IVPB SCH (18:07)
[2020-09-28] MEDS ORDERED: PIPERACILLIN/TAZOBACTAM 3.375 GM VIAL IVPB ONE ×3 (01:42→17:28)
[2020-09-28] MEDS ORDERED: DEXTROSE 5%-WATER - 50 ML IVPB ONE ×3 (01:42→17:28)
[2020-09-28] MEDS: PIPERACILLIN/TAZOB 3.375 GM 3.375 GM in DEXTROSE 5%-WATER - 50 ML IVPB SCH ×3 (02:10→17:38)
[2020-09-28 09:42] LABS: EOS % 0.4 % (0-4.5); HEMOGLOBIN 12.2 GM/dL (10.7-15.3); LYMPH % 5.7 % (8-40); MCH 29.4 pg (25.7-33.7); MCHC 34.8 g/dl (32.0-36.0); MEAN CELL VOLUME 84.4 fl (80-96); MEAN PLT VOLUME 10.2 fl (7.5-11.1); MONO % 6.4 % (3.8-10.2); NEUT % 86.5 % (42.8-82.8); PLATELET COUNT 267 10^3/uL (134-434); RBC 4.14 M/mm3 (3.60-5.2); RDW 14.1 % (11.6-15.6); WHITE BLOOD COUNT 7.7 K/mm3 (4.0-10.0)
[2020-09-28] MEDS: LACTATED RINGERS SOLUTION 1,000 ML/1,000 ML INFUS.BAG IV SCH ×3 (09:42→20:37)
[2020-09-28 09:43] LABS: INR 1.23 (0.83-1.09); PROTHROMBIN TIME (PATIENT) 14.8 SEC (9.7-13.0)
[2020-09-28 10:20] LABS: CALCIUM 8.9 mg/dL (8.5-10.1)
[2020-09-28 10:21] LABS: ALBUMIN 2.6 g/dl (3.4-5.0); BLOOD UREA NITROGEN 19.7 mg/dL (7-18)
[2020-09-28 10:24] LABS: CREATININE 0.6 mg/dL (0.55-1.3)
[2020-09-28 10:25] LABS: TOT PROT 6.2 g/dl (6.4-8.2)
[2020-09-28] MEDS: LACTULOSE 20 GM/30 ML UDC (FOR ORAL USE ONLY) GT SCH ×2 (14:31→21:38)
[2020-09-28] MEDS ORDERED: PT OWN MED DRAWER 7, Y5N ONE (20:37)
[2020-09-28] MEDS: URSODIOL 300 MG CAPSULE NR SCH (21:38)
[2020-09-29] MEDS ORDERED: PIPERACILLIN/TAZOBACTAM 3.375 GM VIAL IVPB ONE ×3 (01:29→18:28)
[2020-09-29] MEDS ORDERED: DEXTROSE 5%-WATER - 50 ML IVPB ONE ×3 (01:30→18:29)
[2020-09-29] MEDS: PIPERACILLIN/TAZOB 3.375 GM 3.375 GM in DEXTROSE 5%-WATER - 50 ML IVPB SCH ×3 (01:34→18:34)
[2020-09-29] MEDS: LACTULOSE 20 GM/30 ML UDC (FOR ORAL USE ONLY) GT SCH ×3 (05:29→21:00)
[2020-09-29] MEDS: LACTATED RINGERS SOLUTION 1,000 ML/1,000 ML INFUS.BAG IV SCH ×2 (05:30→16:29)
[2020-09-29 09:26] LABS: BASO % 0.9 % (0-2.0); EOS % 0.3 % (0-4.5); HEMATOCRIT 37.2 % (32.4-45.2); HEMOGLOBIN 12.8 GM/dL (10.7-15.3); MCH 29.3 pg (25.7-33.7); MCHC 34.3 g/dl (32.0-36.0); MEAN CELL VOLUME 85.3 fl (80-96); MEAN PLT VOLUME 9.9 fl (7.5-11.1); MONO % 4.6 % (3.8-10.2); NEUT % 89.2 % (42.8-82.8); PLATELET COUNT 313 10^3/uL (134-434); RBC 4.36 M/mm3 (3.60-5.2); RDW 14.1 % (11.6-15.6); WHITE BLOOD COUNT 9.3 K/mm3 (4.0-10.0)
[2020-09-29 09:46] LABS: INR 1.34 (0.83-1.09); PROTHROMBIN TIME (PATIENT) 16.4 SEC (9.7-13.0)
[2020-09-29 09:51] LABS: CHLORIDE 104 mmol/L (98-107); SODIUM 135 mmol/L (136-145)
[2020-09-29 10:06] LABS: BLOOD UREA NITROGEN 12.4 mg/dL (7-18)
[2020-09-29 10:09] LABS: CALCIUM 8.6 mg/dL (8.5-10.1); GLUCOSE,RANDOM 69 mg/dL (74-106)
[2020-09-29 10:10] LABS: ALBUMIN 2.5 g/dl (3.4-5.0); ANION GAP 8 MMOL/L (8-16); CO2 23 mmol/L (21-32)
[2020-09-29 10:12] LABS: BILIRUBIN,TOTAL 14.1 mg/dL (0.2-1); SGOT/AST 166 U/L (15-37)
[2020-09-29 10:13] LABS: CREATININE 0.4 mg/dL (0.55-1.3); TOT PROT 6.4 g/dl (6.4-8.2)
[2020-09-29 10:17] LABS: ALK PHOS 820 U/L (45-117); SGPT/ALT < 6 U/L (13-61)
[2020-09-29 10:20] LABS: LIPASE 1910 U/L (73-393)
[2020-09-29] MEDS ORDERED: PT OWN MED DRAWER 7, Y5N ONE ×3 (10:23→20:30)
[2020-09-29] MEDS: URSODIOL 300 MG CAPSULE NR SCH ×2 (10:31→21:01)
[2020-09-29] MEDS ORDERED: METOPROLOL TARTRATE 5 MG/5 ML VIAL IVPB ONE (16:12)
[2020-09-30] MEDS ORDERED: PIPERACILLIN/TAZOBACTAM 3.375 GM VIAL IVPB ONE ×2 (00:45→09:19)
[2020-09-30] MEDS ORDERED: DEXTROSE 5%-WATER - 50 ML IVPB ONE ×2 (00:45→09:19)
[2020-09-30] MEDS: PIPERACILLIN/TAZOB 3.375 GM 3.375 GM in DEXTROSE 5%-WATER - 50 ML IVPB SCH ×2 (01:21→09:24)
[2020-09-30] MEDS: LACTULOSE 20 GM/30 ML UDC (FOR ORAL USE ONLY) GT SCH ×2 (05:50→14:02)
[2020-09-30] MEDS ORDERED: PT OWN MED DRAWER 7, Y5N ONE ×2 (09:20→09:33)
[2020-09-30] MEDS: URSODIOL 300 MG CAPSULE NR SCH (09:24)
[2020-09-30 09:58] LABS: BASO % 0.9 % (0-2.0); EOS % 0.3 % (0-4.5); HEMATOCRIT 38.5 % (32.4-45.2); HEMOGLOBIN 13.2 GM/dL (10.7-15.3); LYMPH % 4.4 % (8-40); MCH 28.7 pg (25.7-33.7); MCHC 34.4 g/dl (32.0-36.0); MEAN CELL VOLUME 83.5 fl (80-96); MEAN PLT VOLUME 9.4 fl (7.5-11.1); MONO % 4.4 % (3.8-10.2); PLATELET COUNT 334 10^3/uL (134-434); RBC 4.61 M/mm3 (3.60-5.2); WHITE BLOOD COUNT 7.7 K/mm3 (4.0-10.0)
[2020-09-30 10:15] LABS: CHLORIDE 100 mmol/L (98-107); SODIUM 135 mmol/L (136-145)
[2020-09-30 10:32] LABS: CALCIUM 8.8 mg/dL (8.5-10.1)
[2020-09-30 10:33] LABS: ALBUMIN 2.4 g/dl (3.4-5.0); ANION GAP 9 MMOL/L (8-16); BLOOD UREA NITROGEN 8.4 mg/dL (7-18); CO2 26 mmol/L (21-32); GLUCOSE,RANDOM 78 mg/dL (74-106)
[2020-09-30 10:39] LABS: ALK PHOS 785 U/L (45-117); BILIRUBIN,TOTAL 16.4 mg/dL (0.2-1); CREATININE 0.7 mg/dL (0.55-1.3); SGOT/AST 196 U/L (15-37); SGPT/ALT < 6 U/L (13-61); TOT PROT 7.2 g/dl (6.4-8.2)
[2020-09-30 10:55] LABS: INR 1.4 (0.83-1.09); PROTHROMBIN TIME (PATIENT) 16.8 SEC (9.7-13.0)
[2020-09-30 11:26] LABS: LIPASE 3696 U/L (73-393)
[2020-09-30 14:49] VITALS: BP 175/99; PULSE 104; TEMP 98.3
== END 2020-09-30 18:13 | disposition short-term general hospital (02) | DRG 438 ==
LOC: JER 18:02 → JERBED 09-27 00:50 → J8W 09-27 16:01
PROVIDERS: ADMIT Internal Medicine; ATTEND Family Medicine
DX: K85.10 Biliary acute pancreatitis without necrosis or infection (principal); G82.50 Quadriplegia, unspecified; G10 Huntington's disease; K80.42 Calculus of bile duct with acute cholecystitis without obstruction; R64 Cachexia; Z68.1 Body mass index [BMI] 19.9 or less, adult; R17 Unspecified jaundice; G20 Parkinson's disease; F02.80 Dementia in other diseases classified elsewhere, unspecified severity, without behavioral disturbance, psychotic disturbance, mood disturbance, and anxiety; I69.391 Dysphagia following cerebral infarction; R13.10 Dysphagia, unspecified; K21.9 Gastro-esophageal reflux disease without esophagitis; F31.9 Bipolar disorder, unspecified; F41.8 Other specified anxiety disorders; R50.9 Fever, unspecified; D72.829 Elevated white blood cell count, unspecified; L89.212 Pressure ulcer of right hip, stage 2; R00.0 Tachycardia, unspecified; Z93.1 Gastrostomy status; Z74.01 Bed confinement status
CPT/HCPCS: 36415; 71045-TC-FY; 71250-TC; 74176-TC; 76705-TC; 80053; 81003; 82140; 82553; 82977; 83605; 83690; 83735; 84484; 85025; 85610; 85730; 86140; 86301; 87040; 87086; 93005; 93010; 99285-25; C9803; J0131; U0003; U0005